=== PATIENT | female | born 1940 | race Caucasian/White ===

== ENCOUNTER 2019-11-02 13:58 | Inpatient (IN) | payer MEDICARE, OTHER ==
[~2019-11-02] VITALS: Ht 157.5 cm; Wt 121.1 kg
[~2019-11-02 13:58] MED LIST: ASPIRIN325 MG PO; BENAZEPRIL-HCT1 EAC3 PO; CITALOPRAM HBR20 MG PO; DILTIAZEM 24HR120 M1 PO; ELIQUIS5 MG PO; FENTANYL1 EAC4 TD; HYDROCODON-ACE1 EA11 PO; KEFLEX500 MG PO; LORTAB 7.5-5001 EACH PO; LOVENOX40 MG/0.4 SC; MELOXICAM7.5 MG PO; METOPROLOL TART25 MG PO; TESSALON PERLE100 MG PO; TRAZODONE HCL100 MG PO; ZITHROMAX500 MG PO
--- NOTE | 2019-11-02 14:09 | Emergency Department Note ---
History of Present Illnes History of Present Illness History of Present Illness This is a 79 year old female sent by manager finance Dr Vela for evaluation of elevated creatinine. Patient seen at bedside NAD . Arrival Mode: Car Onset (how long ago): second(s) Severity: mild Onset quality: sudden Timing of current episode: constant Progression: worsening Chronicity: new Relieving factors: none Exacerbating factors: none Associated symptoms: Reports weakness Treatments prior to arrival: none Past Medical/Family History Physician Review I have reviewed the patient's past medical and family history. Any updates have been documented here. Past Medical History Recent Fever: No Clinical Suspicion of Infectio: No New/Unexplained Change in Ment: No Past Medical History: Hypertension, A-Fib, DVT/PE Other Medical History: Lymphedema, Obesity, arthritis Past Surgical History: Cholecysctectomy, Hysterectomy Other Surgery: caracts left done 11/23/14 total hip gastric band ANKLE Social History Smoking Cessation: Never Smoker Alcohol Use: None Any Illegal Drug Use: No Other Last Tetanus: utd Review of Systems Review of Systems Constitutional: Reports weakness EENTM: Reports no symptoms Cardiovascular: Reports no symptoms Respiratory: Reports no symptoms Gastrointestinal: Reports no symptoms Genitourinary: Reports no symptoms Musculoskeletal: Reports no symptoms Integumentary: Reports no symptoms Neurological: Reports no symptoms Psychological: Reports no symptoms Endocrine: Reports no symptoms Hematological/Lymphatic: Reports no symptoms Physical Exam Related Data Allergies: Coded Allergies: No Known Allergies (Unverified , 09/03/12) Triage Vital Signs Vital Signs Date Time Temp Pulse Resp B/P (MAP) Pulse Ox O2 Delivery O2 Flow Rate FiO2 11/02/19 14:15 97.7 82 20 102/54 94 Vital signs reviewed: Yes Physical Exam CONSTITUTIONAL Constitutional: Present morbidly obese HENT HENT: Present normocephalic, Present atraumatic, Present oropharynx clear/moist, Present nose normal HENT L/R: Present left ext ear normal, Present right ext ear normal EYES Eyes: Reports PERRL, Reports conjunctivae normal NECK Neck: Present ROM normal PULMONARY Pulmonary: Present effort normal, Present breath sounds normal CARDIOVASCULAR Cardiovascular: Present regular rhythm, Present heart sounds normal, Present capillary refill normal, Present normal rate GASTROINTESTINAL Abdominal: Present soft, Present nontender, Present bowel sounds normal GENITOURINARY Genitourinary: Present exam deferred SKIN Skin: Present warm, Present dry MUSCULOSKELETAL Musculoskeletal: Present edema (3+ b/l) NEUROLOGICAL Neurological: Present oriented x 3 PSYCHOLOGICAL Psychological: Present mood/affect normal, Present judgement normal Results Laboratory Lab results reviewed: Yes Laboratory comments Laboratory Tests Test 11/02/19 14:33 11/02/19 14:28 Urine Color Straw (YELLOW) Urine Clarity Sl cloudy (CLEAR) Urine pH 5 (5 - 7) Urine Specific [place] 1.020 (1.010-1.025) Urine Protein Negative (NEGATIVE) Urine Glucose (UA) Negative (NEGATIVE) Urine Ketones Negative (NEGATIVE) Urine Blood Negative (NEGATIVE) Urine Nitrite Negative (NEGATIVE) Urine Bilirubin Negative (NEGATIVE) Urine Urobilinogen 0.2 mg/dL (0.2 - 1) Urine Leukocyte Esterase Negative (NEGATIVE) Urine RBC None /HPF (0-5) Urine WBC 6-10 /HPF (0-5) Urine Epithelial Cells Many /LPF (NONE) Urine Bacteria Moderate /HPF (NONE) Urine Random Total Protein 14.6 mg/dL (1-14) Urine Random Sodium 45 mmol/L Urine Creatinine 104.18 mg/dL (47-110) White Blood Count 5.40 x10e3/uL (4.8-10.8) Red Blood Count 3.13 x10e6/uL (3.6-5.1) Hemoglobin 8.3 g/dL (12.0-16.0) Hematocrit 27.4 % (34.2-44.1) Mean Corpuscular Volume 87.5 fL (81-99) Mean Corpuscular Hemoglobin 26.5 pg (28-32) Mean Corpuscular Hemoglobin Concent 30.3 g/dL (31-35) Red Cell Distribution Width 18.3 % (11.7-14.4) Platelet Count 164 x10e3/uL (140-360) Neutrophils (%) (Auto) 61.1 % (38.7-80.0) Lymphocytes (%) (Auto) 21.3 % (18.0-39.1) Monocytes (%) (Auto) 11.9 % (4.4-11.3) Eosinophils (%) (Auto) 4.4 % (0.0-6.0) Basophils (%) (Auto) 0.9 % (0.0-1.0) Neutrophils # (Auto) 3.3 (2.1-6.9) Lymphocytes # (Auto) 1.2 (1.0-3.2) Monocytes # (Auto) 0.6 (0.2-0.8) Eosinophils # (Auto) 0.2 (0.0-0.4) Basophils # (Auto) 0.1 (0.0-0.1) Absolute Immature Granulocyte (auto 0.02 x10e3/uL (0-0.1) Sodium Level 141 mmol/L (136-145) Potassium Level 4.6 mmol/L (3.5-5.1) Chloride Level 110 mmol/L (98-107) Carbon Dioxide Level 20 mmol/L (22-29) Anion Gap 15.6 mmol/L (8-16) Blood Urea Nitrogen 60 mg/dL (7-26) Creatinine 2.88 mg/dL (0.57-1.11) Estimat Glomerular Filtration Rate 16 ML/MIN (60-) BUN/Creatinine Ratio 21 (6-25) Glucose Level 88 mg/dL (74-118) Calcium Level 9.2 mg/dL (8.4-10.2) Total Bilirubin 1.1 mg/dL (0.2-1.2) Aspartate Amino Transf (AST/SGOT) 17 IU/L (5-34) Alanine Aminotransferase (ALT/SGPT) 15 IU/L (0-55) Alkaline Phosphatase 90 IU/L (40-150) Creatine Kinase 67 IU/L (29-168) Creatine Kinase MB 3.10 ng/mL (0-5.0) Troponin I 0.058 ng/mL (0-0.300) B-Type Natriuretic Peptide 801.6 pg/mL (0-100) Total Protein 6.2 g/dL (6.5-8.1) Albumin 3.3 g/dL (3.5-5.0) Globulin 2.9 g/dL (2.3-3.5) Albumin/Globulin Ratio 1.1 (0.8-2.0) Procedures 12 Lead ECG Interpretation ECG Interpretation : ECG: ECG 1 Crusher Operator: Interpreted by ED physician Date: Nov 02, 2019 Time: 14:33 Prior ECG tracings: reviewed Rhythm: atrial fibrillation Ectopy: infrequent PVC's Rate: normal BPM: 77 ST segments normal: Yes T waves normal: Yes Q waves: V3, V4, V5, V6 Clinical Impression: abnormal ECG Assessment & Plan Medical Decision Making MDM 79 yof presents to the ED for non-specific weakness . Diff Dx : renal failure, hyperkalemia, ACS, infection, arrythmia. Assessment & Plan Final Impression: (1) Renal failure (ARF), acute on chronic (2) Elevated brain natriuretic peptide (BNP) level (3) Weakness (4) Atrial fibrillation Home Meds Active Scripts Apixaban (Eliquis) 5 Mg Tablet, 5 MG PO BID for 30 Days Prov:ALANA ABARCA MD 05/08/19 Azithromycin (ZITHROMAX) 500 Mg Tablet, 250 MG PO DAILY, #5 Prov:ALANA ABARCA MD 05/08/19 Cephalexin Monohydrate (KEFLEX) 500 Mg Capsule, 500 MG PO Q12H for 5 Days Prov:ALANA ABARCA MD 05/08/19 Diltiazem Hcl (DILTIAZEM 24HR CD) 120 Mg Cap.er.24h, 120 MG PO DAILY for 30 Days Prov:ALANA ABARCA MD 05/08/19 Benzonatate (TESSALON PERLE) 100 Mg Capsule, 100 MG PO Q6HR PRN for COUGH for 10 Days Prov:ALANA ABARCA MD 05/08/19 Reported Medications Metoprolol Tartrate (METOPROLOL TARTRATE) 25 Mg Tablet, 25 MG PO BID, TAB 11/25/14 Aspirin (ASPIRIN) 325 Mg Tablet, 325 MG PO DAILY, TAB 11/25/14 Meloxicam (MELOXICAM) 7.5 Mg Tablet, 7.5 MG PO DAILY, #30 TAB 11/23/14 Hydrocodone Bit/Acetaminophen (HYDROCODON-ACETAMINOPHEN 5-325) 1 Each Tablet, MG PO PRN 09/03/12 Benazepril/Hydrochlorothiazide (BENAZEPRIL-HCTZ 20-25 MG TAB) 1 Each Tablet, MG PO DAILY 09/03/12 Medications in the ED Sodium Chloride 1,000 ml @ 0 mls/hr Q0M STAT IV ; Start 11/02/19 at 14:07; Stop 11/02/19 at 14:08; Status KEVIN JEAN DO Nov 02, 2019 14:09
[2019-11-02 14:39] LABS: BASOPHILS # (AUTO) 0.1 (0.0-0.1); BASOPHILS % 0.9 % (0.0-1.0); EOSINOPHILS # (AUTO) 0.2 (0.0-0.4); EOSINOPHILS % 4.4 % (0.0-6.0); HEMATOCRIT 27.4 % (34.2-44.1); HEMOGLOBIN 8.3 g/dL (12.0-16.0); LYMPHOCYTES # (AUTO) 1.2 (1.0-3.2); LYMPHOCYTES % 21.3 % (18.0-39.1); MEAN CORPUSCULAR HEMOGLOBIN 26.5 pg (28-32); MEAN CORPUSCULAR HGB CONC 30.3 g/dL (31-35); MEAN CORPUSCULAR VOLUME 87.5 fL (81-99); MONOCYTES # (AUTO) 0.6 (0.2-0.8); MONOCYTES % 11.9 % (4.4-11.3); NEUTROPHILS # (AUTO) 3.3 (2.1-6.9); NEUTROPHILS % 61.1 % (38.7-80.0); PLATELET COUNT 164 x10e3/uL (140-360); RED BLOOD COUNT 3.13 x10e6/uL (3.6-5.1); RED CELL DISTRIBUTION WIDTH 18.3 % (11.7-14.4)
[2019-11-02 14:57] LABS: ALBUMIN 3.3 g/dL (3.5-5.0); ALBUMIN/GLOBULIN RATIO 1.1 (0.8-2.0); ANION GAP 15.6 mmol/L (8-16); CALCIUM 9.2 mg/dL (8.4-10.2); CREATININE, SERUM 2.88 mg/dL (0.57-1.11); POTASSIUM 4.6 mmol/L (3.5-5.1)
[2019-11-02 15:04] LABS: CREATINE KINASE MB 3.1 ng/mL (0-5.0)
[2019-11-02 16:26] LABS: BILIRUBIN,URINE NEGATIVE (NEGATIVE); CLARITY,URINE SL CLOUDY (CLEAR); COLOR,URINE STRAW (YELLOW); KETONES,URINE NEGATIVE (NEGATIVE); LEUKOCYTE ESTERASE ,URINE NEGATIVE (NEGATIVE); NITRITE,URINE NEGATIVE (NEGATIVE); PROTEIN,URINE DIPSTICK NEGATIVE (NEGATIVE); URINE UROBILINOGEN 0.2 mg/dL (0.2 - 1)
[2019-11-02 16:40] LABS: BACTERIA,URINE MODERATE /HPF; EPITHELIAL CELLS,URINE MANY /LPF
[2019-11-02] MEDS ORDERED: SODIUM CHLORIDE 0.9% 1000ML 1,000 ML IV SCH (16:45)
[2019-11-02 17:03] LABS: TOTAL PROTEIN, URINE 14.6 mg/dL (1-14)
[2019-11-02] MEDS ORDERED: SODIUM CHLORIDE FLUSH 10 ML SYR INJ PRN (17:30)
[2019-11-02 20:15] VITALS: BP 110/70
[2019-11-02 21:00] VITALS: BP 110/70
--- NOTE | 2019-11-02 21:30 | NUR ---
Patient received via stretcher from ER. AAO x 3. Patient had no complaints of pain. Respirations even and non-labored. Admission history obtained. Initial physical assessment performed. Safety measures implemented. IVF infusing at 75 cc/hr. Patient instructed to call for assistance when needed. Call light within reach.
[2019-11-02] MEDS ORDERED: ULTRAM50 MG PO (22:31)
--- NOTE | 2019-11-02 23:01 | Consultation ---
DATE OF CONSULTATION: Renal Consultation HISTORY OF PRESENT ILLNESS: Thank you for the consultation. Ms. Miramontes is a pleasant 79-year-old female patient, well known to me from her outpatient setting. She typically has chronic kidney disease with baseline serum creatinine around 1.3 mg/dL. She had free clinic labs done in the outpatient setting. Creatinine rise to 2.63 from her baseline around 1.3 mg/dL when she was supposed to be following up in our clinic this week. The patient also had a potassium of 6. I proceeded to get in touch with the patient yesterday. The patient informed me that she has been feeling very weak and fatigued and tired. Blood work also showed a potassium elevated at 6. I asked the patient to take Kayexalate, stop her benazepril, and she was also getting Mobic before, asked her to stop that as well. I asked her to present to the emergency room. She presented today to the ER at [facility] in [place]. Creatinine is still elevated in fact even higher at 2.9. I did ask her yesterday to stop her benazepril and Mobic. The patient's potassium is better and she did take her Kayexalate yesterday. Potassium is better at 4.6. Currently, no fever, no chills, no nausea, no vomiting, no diarrhea, no abdominal pain. Renal consultation has been asked for the management of her acute kidney injury on chronic kidney. PAST MEDICAL HISTORY: Chronic kidney disease stage 3, history of hypertension, history of arthritis, and history of atrial fibrillation also. MEDICATIONS: That she takes; metoprolol, meloxicam, diltiazem, benazepril, hydrochlorothiazide, aspirin, and Eliquis. ALLERGIES: NO KNOWN DRUG ALLERGIES. SOCIAL HISTORY: No tobacco. No alcohol use. FAMILY HISTORY: Noncontributory. REVIEW OF SYSTEMS: See HPI. Otherwise, all systems negative. PHYSICAL EXAMINATION: VITAL SIGNS: Blood pressure 102/54, 82 pulse. The patient is afebrile. HEENT: No cervical lymphadenopathy. NECK: Supple without masses. No JVD. Moist appearing oral mucosa. SKIN: Moist with good turgor. CHEST WALL: Good expansion. No chest wall tenderness. LUNGS: Clear to auscultation bilaterally. CARDIOVASCULAR: S1 and S2. No obvious gallop, rub, or murmur. ABDOMEN: Soft. Positive bowel sounds. Nontender. No organomegaly. EXTREMITIES: Evidence of 2 to 3+ edema, which is secondary to her chronic lymphedema. No clubbing. No cyanosis. NEUROLOGIC: Awake, alert, and oriented x3. Grossly nonfocal exam. Has some decreased motor strength bilaterally. LABORATORY WORKUP: Urinalysis was negative. Chemistry; sodium 141, potassium 4.6, chloride 110, bicarb 20, BUN 60, creatinine is 2.9, calcium 9.2, and glucose is 88. Hematology; H and H are 8.3 and 27.4. IMPRESSION AND PLAN: 1. Acute kidney injury on chronic kidney disease. Stage 3. Suspect there is a component of acute prerenal azotemia. The patient may or may not have been with active infection and dehydrated with her volume depleted. I will stop her benazepril and hydrochlorothiazide. I have also asked her to stop her Mobic. I would not give any further Mobic and would also not start the benazepril or HCTZ back again until her creatinine is back to her baseline. Her potassium is normal now. I will place her on gentle IV fluids of normal saline at 75 mL/h and repeat labs again in the morning including basic metabolic panel, mag, phos, and CBC. We will get urine electrolytes and make further recommendation. Recommend to avoid all potential nephrotoxic agents. Hold any ANTON inhibitors or ARBs, nonsteroidal anti-inflammatory drugs, IV dye as well as any diuretics. 2. Hypertension. Blood pressure is on the low side of normal. Would gently hydrate the patient and discontinue and hold all blood pressure medicines for now. 3. Hyperkalemia, has resolved now. We will continue to monitor off benazepril and Mobic as outlined above. Thank you once again for consultation. We will follow the patient closely along with you and make further recommendations. Omid Vela MD TH/MODL /[id number] cc: Thony Dunn MD
[2019-11-02] MEDS ORDERED: ONDANSETRON HCL INJ 2MG/ML 2ML 2 MG/ML VIAL IV PRN (23:45)
[2019-11-02] MEDS ORDERED: ACETAMINOPHEN 325 MG TAB PO PRN (23:45)
[2019-11-02] MEDS ORDERED: DOCUSATE SODIUM 100 MG CAP PO PRN (23:45)
[2019-11-02] MEDS ORDERED: ZOLPIDEM TARTRATE 10 MG TAB PO PRN (23:45)
[2019-11-03] VITALS (8 sets, daily range): BP systolic 87–122; BP diastolic 36–72
[2019-11-03] MEDS: SODIUM CHLORIDE 0.9% 1000ML 1,000 ML IV STA ×2 (00:52→14:21)
--- NOTE | 2019-11-03 05:47 | NUR ---
H&P PCP cc: sob/cough HPI: 78yoF, developed worsening renal function, sent to hospital by . PMH: PAF, HTN, DVT, OA, chronic lymphedema legs, PNA, PAF, PreDM PSHx: left hip, cholecystectomy, carpal tunel, ankle, gastric bypass Allergies; see emr FH/SH; single; no cigs med;s see MAR ROS no f/c/s/n/V/D/NUNEZ/dizziness/cp/vision changes/skin rash/confusion v/s; revd PE tired appearing anicteric ns1s2 course breath sounds; crackles right; cough with deep inspiration soft nt nd no e/t skin dry flat affect a&ox3; labs/meds revd A/P: LISSETH - IVF; hold nephrotoxic agents CKD3 due to HTN- f/u labs; UTI- start ceftriaxone; culture; PreDM- check hab1c/lipids Severe obesity- check hab1c/lipids; 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
[2019-11-03 05:58] LABS: BASOPHILS # (AUTO) 0.1 (0.0-0.1); BASOPHILS % 1.1 % (0.0-1.0); EOSINOPHILS # (AUTO) 0.2 (0.0-0.4); EOSINOPHILS % 5.4 % (0.0-6.0); HEMATOCRIT 26.8 % (34.2-44.1); LYMPHOCYTES # (AUTO) 1.2 (1.0-3.2); LYMPHOCYTES % 26.8 % (18.0-39.1); MEAN CORPUSCULAR HEMOGLOBIN 25.9 pg (28-32); MEAN CORPUSCULAR HGB CONC 29.9 g/dL (31-35); MEAN CORPUSCULAR VOLUME 86.7 fL (81-99); MONOCYTES # (AUTO) 0.8 (0.2-0.8); MONOCYTES % 18.5 % (4.4-11.3); NEUTROPHILS # (AUTO) 2.1 (2.1-6.9); PLATELET COUNT 147 x10e3/uL (140-360); RED BLOOD COUNT 3.09 x10e6/uL (3.6-5.1); RED CELL DISTRIBUTION WIDTH 18.5 % (11.7-14.4)
[2019-11-03] MEDS: TRAMADOL HCL 50 MG TAB PO SCH ×3 (06:00→21:00)
[2019-11-03] MEDS ORDERED: CEFTRIAXONE SOD 1 GM/NS 50 ML 50 ML IV SCH (06:00)
[2019-11-03 06:01] LABS: ALBUMIN/GLOBULIN RATIO 1.1 (0.8-2.0); ANION GAP 13.5 mmol/L (8-16); CALCIUM 8.8 mg/dL (8.4-10.2); CREATININE, SERUM 2.81 mg/dL (0.57-1.11); POTASSIUM 4.5 mmol/L (3.5-5.1)
--- NOTE | 2019-11-03 06:10 | NUR ---
Dr. Keys (covering for Dr. Vela) was notified of "Routine Consult".
--- NOTE | 2019-11-03 07:00 | NUR ---
Walking rounds done. Patient resting comfortably. BSSR given to oncoming nurse regarding patient's status.
[2019-11-03 07:11] LABS: MAGNESIUM 1.9 MG/DL (1.3-2.1); PHOSPHORUS 5.2 MG/DL (2.3-4.7)
[2019-11-03] MEDS: METOPROLOL TARTRATE 25 MG TAB PO SCH ×2 (09:00→17:00)
[2019-11-03] MEDS: APIXABAN 5 MG TABLET PO SCH ×2 (09:56→17:28)
[2019-11-03 10:34] LABS: ELLIPTOCYTE, RBC SLIGHT; HYPOCHROMASIA SLIGHT; OVALOCYTES FEW
[2019-11-03 10:35] LABS: ANISOCYTOSIS MODERATE; BURR CELLS SLIGHT; PLATELET ESTIMATE ADEQUATE; PLATELET MORPHOLOGY COMMENT NORMAL; RBC MORPHOLOGY COMMENT ABNORMAL; SCHISTOCYTES RARE
[2019-11-03 10:36] LABS: TARGET CELLS FEW
[2019-11-03] MEDS: CEFTRIAXONE SOD 1 GM/NS 50 ML 50 ML IV SCH (11:10)
--- NOTE | 2019-11-03 11:53 | Progress Note ---
DATE: 11/03/2019 Nephrology Progress Note SUBJECTIVE: The patient denies any shortness of breath or nausea. She was referred to the hospital yesterday after her creatinine was noted to have risen to 2.63 from her baseline of 1.3. Also had a potassium of 6. Benazepril and Mobic have been stopped. She was started on IV fluids normal saline at 75 mL/h. OBJECTIVE: GENERAL: Looks comfortable. VITAL SIGNS: Blood pressure 100/55. NECK: Supple without JVP. CHEST: Clear to auscultation, no crepitations or wheezes. CARDIOVASCULAR: No rub or gallop. ABDOMEN: Soft, obese, but nondistended. EXTREMITIES: Both lower legs have chronic lymphedema, which is nonpitting. LABORATORY DATA: Hemoglobin 8, normal white count and platelets. Potassium 4.5, bicarb 21, sodium 143, BUN 60, creatinine 2.81, from 2.88 yesterday. ASSESSMENT: 1. Acute kidney injury, possibly related to use of Mobic. May be improving with hydration. 2. Chronic kidney disease, stage 3-4. 3. Blood pressure on the lower side, on small dose of metoprolol. Benazepril and hydrochlorothiazide held. 4. Hyperkalemia, resolved. PLAN: Continue current supportive treatment and trend renal function daily, looking for improvement. Her hemoglobin is 8.3, and appears stable related to her chronic kidney disease. MD MARGO Banda/NICK /[id number]
[2019-11-04] VITALS (7 sets, daily range): BP systolic 84–107; BP diastolic 51–75
[2019-11-04] MEDS: APIXABAN 5 MG TABLET PO SCH ×2 (08:59→16:41)
[2019-11-04] MEDS: METOPROLOL TARTRATE 25 MG TAB PO SCH ×2 (08:59→16:42)
[2019-11-04] MEDS: CEFTRIAXONE SOD 1 GM/NS 50 ML 50 ML IV SCH (08:59)
--- NOTE | 2019-11-04 15:34 | Progress Note ---
DATE: 11/04/2019 Nephrology Followup Note SUBJECTIVE: The patient is sleeping comfortably. OBJECTIVE: VITAL SIGNS: Blood pressure 84/51. Room air saturation 97%. Afebrile. Pulse 59 per minute. NECK: Without jugular venous distention. The rest of the exam is unchanged since yesterday. LABORATORY DATA: None available from today. IMPRESSION: 1. Acute kidney injury, possibly related to nonsteroidal anti-inflammatory drugs use. The patient has been hydrated since admission. 2. Chronic kidney disease, stage 3-4. 3. Blood pressure has been on the lower side, on small dose of metoprolol. Benazepril and hydrochlorothiazide on hold. 4. Hyperkalemia, resolved yesterday. PLAN: 1. Continue current supportive treatment. 2. Repeat BMP tomorrow to assess progress in renal function improvement. MD MARGO Banda/NICK /[id number]
--- NOTE | 2019-11-04 16:50 | NUR ---
IM- progress note O/N see below ROS no f/c/s/n/V/D/NUNEZ/dizziness/cp/vision changes/skin rash/confusion v/s; revd PE tired appearing anicteric ns1s2 course breath sounds; crackles right; cough with deep inspiration soft nt nd no e/t skin dry flat affect a&ox3; labs/meds revd A/P: LISSETH - IVF; hold nephrotoxic agents CKD3 due to HTN- f/u labs; UTI- start ceftriaxone; culture; PreDM- check hab1c/lipids Severe obesity- check hab1c/lipids; care mgr consult BMI 48.8- as above PAF- HR controlled; Apixaban HTN- cont home meds Prop: pepcid on AC Dispo: f/u 7-2 cont care; f/u renal fn. cont abx. Glenn Dunn MD, PhD.
[2019-11-04] MEDS: TRAMADOL HCL 50 MG TAB PO SCH (21:31)
[2019-11-05] VITALS (8 sets, daily range): BP systolic 93–130; BP diastolic 56–82
[2019-11-05] MEDS: APIXABAN 5 MG TABLET PO SCH ×2 (09:42→17:29)
[2019-11-05] MEDS: CEFTRIAXONE SOD 1 GM/NS 50 ML 50 ML IV SCH (09:42)
[2019-11-05] MEDS: METOPROLOL TARTRATE 25 MG TAB PO SCH ×2 (09:43→17:29)
--- NOTE | 2019-11-05 12:07 | NUR ---
IM- progress note O/N see below ROS no f/c/s/n/V/D/NUNZE/dizziness/cp/vision changes/skin rash/confusion v/s; revd PE tired appearing anicteric ns1s2 course breath sounds; crackles right; cough with deep inspiration soft nt nd no e/t skin dry flat affect a&ox3; labs/meds revd A/P: LISSETH - IVF; hold nephrotoxic agents CKD3 due to HTN- f/u labs; UTI- start ceftriaxone; culture; PreDM- check hab1c/lipids Severe obesity- check hab1c/lipids; milieu counselor consult BMI 48.8- as above PAF- HR controlled; Apixaban HTN- cont home meds Prop: pepcid on AC Dispo: f/u 7-2 cont care; f/u renal fn. cont abx. 7-3 check renal fn Glenn Dunn MD, PhD.
[2019-11-05 14:16] LABS: ANION GAP 10.6 mmol/L (8-16); CALCIUM 8.4 mg/dL (8.4-10.2); CREATININE, SERUM 2.28 mg/dL (0.57-1.11); POTASSIUM 4.6 mmol/L (3.5-5.1)
[2019-11-05] MEDS: TRAMADOL HCL 50 MG TAB PO SCH (20:38)
[2019-11-06] VITALS: BP 114/47
[2019-11-06 04:00] VITALS: BP 106/46
--- NOTE | 2019-11-06 07:25 | NUR ---
pt resting in bed. pt aware to call for assistance with getting oob
[2019-11-06 07:55] VITALS: BP 95/71
[2019-11-06 08:15] VITALS: BP 95/71
[2019-11-06] MEDS: METOPROLOL TARTRATE 25 MG TAB PO SCH ×2 (08:32→17:58)
[2019-11-06] MEDS: APIXABAN 5 MG TABLET PO SCH ×2 (08:53→17:58)
[2019-11-06] MEDS: CEFTRIAXONE SOD 1 GM/NS 50 ML 50 ML IV SCH (08:54)
[2019-11-06 11:22] VITALS: BP 103/64
--- NOTE | 2019-11-06 11:49 | NUR ---
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 cont abx. 7-3 check renal fn 7-4 check renal fn; d/c planning; d/c home stable f/u pcp 3 days and nephrology 1 week d/c>35mins Glenn Dunn MD, PhD.
--- NOTE | 2019-11-06 12:40 | NUR ---
physical therapy at bedside
[2019-11-06 12:47] LABS: ANION GAP 10.2 mmol/L (8-16); CALCIUM 8.5 mg/dL (8.4-10.2); CREATININE, SERUM 2.05 mg/dL (0.57-1.11); POTASSIUM 4.2 mmol/L (3.5-5.1)
--- NOTE | 2019-11-06 14:40 | NUR ---
dr cramer called to inform dr aviva mcgarry pt and to ask if ok to dc from renal and give lab results
--- NOTE | 2019-11-06 15:22 | NUR ---
dr cramer states ok to dc pt. creatine results given
--- NOTE | 2019-11-06 16:09 | NUR ---
pt found with iv to right ac out. blood over pt arm. pt states she wanted to get oob and did not use call aguilar
--- NOTE | 2019-11-06 16:25 | NUR ---
charge nurse melisa martin started iv to right fa
--- NOTE | 2019-11-06 17:59 | NUR ---
pt states family member is having car trouble, still waiting on ride.
--- NOTE | 2019-11-06 18:19 | Progress Note ---
DATE: 11/06/2019 Nephrology Followup Note SUBJECTIVE: Followed up for acute kidney injury on CKD 3 to 4. The patient is asymptomatic today. OBJECTIVE: VITAL SIGNS: Blood pressure 103/64, pulse 87 per minute, respirations 16 per minute. She is afebrile. Oxygen saturation 94% on room air. NECK: Supple without jugular venous distention. CHEST: Clear to auscultation bilaterally. No wheezing or crepitation heard. CARDIOVASCULAR: Shows regular rate and rhythm. No rub or gallop. ABDOMEN: Obese, but nondistended. EXTREMITIES: Have bilateral chronic thigh lymphedema. NEUROLOGICAL: Alert and oriented x3. LABORATORY DATA: Serum creatinine is 2.05, down from 2.81 on admission. Electrolytes stable. BUN is 22. IMPRESSION: 1. Acute kidney injury, possibly related to NSAID use, resolved. 2. Chronic kidney disease, stage 4. 3. Hypertension, controlled on small dose of metoprolol. 4. Anemia secondary to chronic kidney disease. Hemoglobin is stable. The patient may be discharged home today from renal standpoint. She will be followed up in the office within the next month with BMP results. She should be advised to stay away from NSAIDs. Santiago Keys MD [facility]/[place] /[id number]
== END 2019-11-06 18:34 | disposition home or self-care (01) | DRG 683 ==
LOC: ER 15:09 → ERHOLD 17:19 → MED/SURG2 21:49 → OBSVTOIN 11-04 13:50
PROVIDERS: ADMIT Internal Medicine; ATTEND Internal Medicine
DX: N17.9 Acute kidney failure, unspecified (principal); Z68.42 Body mass index [BMI] 45.0-49.9, adult; N39.0 Urinary tract infection, site not specified; E11.22 Type 2 diabetes mellitus with diabetic chronic kidney disease; I12.9 Hypertensive chronic kidney disease with stage 1 through stage 4 chronic kidney disease, or unspecified chronic kidney disease; Z79.4 Long term (current) use of insulin; I48.0 Paroxysmal atrial fibrillation; Z79.01 Long term (current) use of anticoagulants; E66.01 Morbid (severe) obesity due to excess calories; Z11.59 Encounter for screening for other viral diseases; Z86.718 Personal history of other venous thrombosis and embolism; M19.90 Unspecified osteoarthritis, unspecified site; Z98.84 Bariatric surgery status; Z90.49 Acquired absence of other specified parts of digestive tract; E87.5 Hyperkalemia; N18.4 Chronic kidney disease, stage 4 (severe); Z79.1 Long term (current) use of non-steroidal anti-inflammatories (NSAID)
CPT/HCPCS: 36415; 80048; 80053; 80061; 81001; 82550; 82553; 82570; 83036; 83735; 83880; 84100; 84156; 84300; 84484; 85025; 87086; 87635; 93005; 97139; 99284; G0378; J0696; J7030

== ENCOUNTER 2020-01-12 15:58 | Inpatient (IN) | payer MEDICARE, OTHER ==
[~2020-01-12] VITALS: Ht 162.6 cm; Wt 112.0 kg
[~2020-01-12 15:58] MED LIST changes: +ULTRAM50 MG PO
--- NOTE | 2020-01-12 16:16 | Emergency Department Note ---
History of Present Illnes History of Present Illness Chief Complaint: Respiratory History of Present Illness This is a 79 year old female Chief Complaint Comment pt came in via [facility] from residence with c/o shortness of breath that started a few days ago, pt has not verbalized any complaints but wanting to be checked up, pt was placed on O2 @ 3L via nasal cannula and O2 sat now is at 98%. Historian: [facility] [employer] [facility] Arrival Mode: HFD Manuscript Reader Required: No Onset (how long ago): day(s) (3) Location: None Quality: None Radiation: Reports non-radiation Severity: unable to specify Onset quality: unable to specify Duration (how long): day(s) (3) Progression: unchanged Chronicity: new Context: Denies recent illness, Denies recent surgery Relieving factors: none Exacerbating factors: none Associated symptoms: Reports denies other symptoms Treatments prior to arrival: none (KELSIE NG MD) Past Medical/Family History Physician Review I have reviewed the patient's past medical and family history. Any updates have been documented here. (KELSIE NG MD) Past Medical History Recent Fever: No Clinical Suspicion of Infectio: No New/Unexplained Change in Ment: No Past Medical History: Hypertension, CHF Other Medical History: Lymphedema, Obesity, arthritis Past Surgical History: Cholecysctectomy, Hysterectomy Other Surgery: cataracts left done 11/23/14 total hip replacement (left) gastric band (KELSIE NG MD) Other Last Tetanus: utd (KELSIE NG MD) Review of Systems Review of Systems Constitutional: Reports no symptoms EENTM: Reports no symptoms Cardiovascular: Reports no symptoms Respiratory: Reports no symptoms Gastrointestinal: Reports no symptoms Genitourinary: Reports no symptoms Musculoskeletal: Reports no symptoms Integumentary: Reports no symptoms Neurological: Reports no symptoms Psychological: Reports no symptoms Endocrine: Reports no symptoms Hematological/Lymphatic: Reports no symptoms (KELSIE NG MD) Physical Exam Related Data Allergies: Coded Allergies: No Known Allergies (Unverified , 09/03/12) Triage Vital Signs Vital Signs Date Time Temp Pulse Resp B/P (MAP) Pulse Ox O2 Delivery O2 Flow Rate FiO2 01/12/20 16:02 110 18 120/81 98 Nasal Cannula 2.0 Vital signs reviewed: Yes (KELSIE NG MD) Physical Exam CONSTITUTIONAL Constitutional: Present well-developed, Present morbidly obese HENT HENT: Present normocephalic, Present atraumatic, Present oropharynx sophia ar/moist, Present nose normal HENT L/R: Present left ext ear normal, Present right ext ear normal EYES Eyes: Reports PERRL, Reports conjunctivae normal NECK Neck: Present ROM normal PULMONARY Pulmonary: Present effort normal, Present breath sounds normal CARDIOVASCULAR Cardiovascular: Present irregular rhythm, Present intact distal pulses, Present capillary refill normal, Present tachycardia GASTROINTESTINAL Abdominal: Present soft, Present nontender, Present bowel sounds normal GENITOURINARY Genitourinary: Present exam deferred SKIN Skin: Present warm, Present dry MUSCULOSKELETAL Musculoskeletal: Present ROM normal NEUROLOGICAL Neurological: Present alert, Present oriented x 3, Present no gross motor or sensory deficits PSYCHOLOGICAL Psychological: Present mood/affect normal, Present judgement normal (KELSIE NG MD) Results Laboratory Laboratory Laboratory Tests Test 01/12/20 18:10 01/12/20 17:46 01/12/20 17:00 Urine Color Yellow (YELLOW) Urine Clarity Sl cloudy (CLEAR) Urine pH 5 (5 - 7) Urine Specific [place] 1.025 (1.010-1.025) Urine Protein Trace (NEGATIVE) Urine Glucose (UA) Negative (NEGATIVE) Urine Ketones Negative (NEGATIVE) Urine Blood Negative (NEGATIVE) Urine Nitrite Negative (NEGATIVE) Urine Bilirubin Small (NEGATIVE) Urine Urobilinogen 0.2 mg/dL (0.2 - 1) Urine Leukocyte Esterase Negative (NEGATIVE) Urine RBC 0-5 /HPF (0-5) Urine WBC 0-5 /HPF (0-5) Urine Epithelial Cells Rare /LPF (NONE) Urine Bacteria Rare /HPF (NONE) Urine Hyaline Casts 2-5 (0-1) Urine Fine Granular Casts 1-5 (0) White Blood Count 4.50 x10e3/uL (4.8-10.8) Red Blood Count 3.43 x10e6/uL (3.6-5.1) Hemoglobin 8.3 g/dL (12.0-16.0) Hematocrit 28.7 % (34.2-44.1) Mean Corpuscular Volume 83.7 fL (81-99) Mean Corpuscular Hemoglobin 24.2 pg (28-32) Mean Corpuscular Hemoglobin Concent 28.9 g/dL (31-35) Red Cell Distribution Width 18.6 % (11.7-14.4) Platelet Count 154 x10e3/uL (140-360) Neutrophils (%) (Auto) 46.8 % (38.7-80.0) Lymphocytes (%) (Auto) 28.9 % (18.0-39.1) Monocytes (%) (Auto) 18.4 % (4.4-11.3) Eosinophils (%) (Auto) 3.6 % (0.0-6.0) Basophils (%) (Auto) 1.6 % (0.0-1.0) Neutrophils # (Auto) 2.1 (2.1-6.9) Lymphocytes # (Auto) 1.3 (1.0-3.2) Monocytes # (Auto) 0.8 (0.2-0.8) Eosinophils # (Auto) 0.2 (0.0-0.4) Basophils # (Auto) 0.1 (0.0-0.1) Absolute Immature Granulocyte (auto 0.03 x10e3/uL (0-0.1) Sodium Level 143 mmol/L (136-145) Potassium Level 4.3 mmol/L (3.5-5.1) Chloride Level 111 mmol/L (98-107) Carbon Dioxide Level 18 mmol/L (22-29) Anion Gap 18.3 mmol/L (8-16) Blood Urea Nitrogen 15 mg/dL (7-26) Creatinine 1.16 mg/dL (0.57-1.11) Estimat Glomerular Filtration Rate 45 ML/MIN (60-) BUN/Creatinine Ratio 13 (6-25) Glucose Level 79 mg/dL (74-118) Calcium Level 8.5 mg/dL (8.4-10.2) Total Bilirubin 0.8 mg/dL (0.2-1.2) Aspartate Amino Transf (AST/SGOT) 15 IU/L (5-34) Alanine Aminotransferase (ALT/SGPT) < 6 IU/L (0-55) Alkaline Phosphatase 112 IU/L (40-150) Troponin I 0.063 ng/mL (0-0.300) B-Type Natriuretic Peptide 368.4 pg/mL (0-100) Total Protein 5.6 g/dL (6.5-8.1) Albumin 3.2 g/dL (3.5-5.0) Globulin 2.4 g/dL (2.3-3.5) Albumin/Globulin Ratio 1.3 (0.8-2.0) Coronavirus (PCR) Not detected (NOTDETECTED) Lab results reviewed: Yes (JES RUBIO MD) Imaging Imaging results reviewed: Yes Impressions Procedure: [id number] DX/CHEST SINGLE (PORTABLE) Exam Date: 01/12/20 Exam Time: 1705 REPORT STATUS: Signed EXAMINATION: CHEST SINGLE (PORTABLE) INDICATION: Shortness of breath COMPARISON: CT of the chest on 05/06/2019. FINDINGS: TUBES and LINES: None. LUNGS: Normal lung volumes. There is multifocal interstitial and airspace opacities, most pronounced in the right lung base. PLEURA: There is probable trace bilateral pleural effusion. No evidence of pneumothorax. HEART AND MEDIASTINUM: The cardiomediastinal silhouette is mildly enlarged. BONES AND SOFT TISSUES: No acute osseous lesion. Soft tissues are unremarkable. UPPER ABDOMEN: No free air under the diaphragm. IMPRESSION: 1. Mild cardiomegaly with prominent interstitial lung markings which likely represent pulmonary edema. 2. Multifocal airspace opacities may represent superimposed atelectasis and/or developing pneumonia in the proper clinical context. Signed by: Agusto Cardoza MD on 01/12/2020 5:28 PM Dictated By: AGUSTO CARDOZA MD 27 Transcribed By: SARAH on 01/12/201727 COPY TO: KELSIE NG MD~ (JES RUBIO MD) Procedures 12 Lead ECG Interpretation ECG Interpretation : ECG: ECG 1 Manuscript Reader: Interpreted by ED physician Date: Jan 12, 2020 Rhythm: atrial fibrillation Rate: tachycardia BPM: 120 QRS axis: normal ST segments normal: Yes T waves normal: Yes Clinical Impression: abnormal ECG (KELSIE NG MD) Assessment & Plan Medical Decision Making MDM 79 y.o F w/ SoB at [facility] but asymptomatic now. Diff includes PNA vs CHF vs ACS among others. Labs pending. A-fib w/ RVR 5mg lopressor ordered. Handed off to Dr. Rubio @ 1800 (KELSIE NG MD) Reassessment Reassessment time: 17:45 Reassessment Well appearing, NAD (KELSIE NG MD) Reassessment time: 19:36 Reassessment PT WITH RALES TO BILATERAL LOWER LOBES WITH AUSCULTATION Date Time Temp Pulse Resp B/P (MAP) Pulse Ox O2 Delivery O2 Flow Rate FiO2 01/12/20 19:03 101 16 112/79 95 Room Air 01/12/20 17:14 97.9 01/12/20 16:02 2[address] ABARCA, ADMIT PATIENT (JES RUBIO MD) Assessment & Plan Final Impression: (1) Dyspnea (KELSIE NG MD) Final Impression: (1) Dyspnea (2) CHF (congestive heart failure) (3) Pulmonary edema (4) Chronic a-fib (JES RUBIO MD) Depart Disposition: ADMITTED Last Vital Signs Date Time Temp Pulse Resp B/P (MAP) Pulse Ox O2 Delivery O2 Flow Rate FiO2 01/12/20 16:02 110 18 120/81 98 Nasal Cannula 2.0 (KELSIE NG MD) Home Meds Active Scripts Apixaban (Eliquis) 5 Mg Tablet, 5 MG PO BID for 30 Days Prov:ALANA ABARCA MD 05/08/19 Reported Medications Tramadol Hcl (ULTRAM) 50 Mg Tablet, 50 MG PO Q6H, TAB 11/02/19 Metoprolol Tartrate (METOPROLOL TARTRATE) 25 Mg Tablet, 25 MG PO BID, TAB 11/25/14 Aspirin (ASPIRIN) 325 Mg Tablet, 325 MG PO DAILY, TAB 15 Hydrocodone Bit/Acetaminophen (HYDROCODON-ACETAMINOPHEN 5-325) 1 Each Tablet, MG PO PRN 09/03/12 KELSIE NG MD Jan 12, 2020 16:16 JES RUBIO MD Jan 12, 2020 19:39
--- OUTSIDE RECORDS SUMMARY | 2020-01-12 16:21 | XMS REPORT | Continuity of Care Document ---
Author Author [facility] t Organization [facility] Address [address] [place] [address] Dr. Zacarias [address] [place] [address] Phone Unavailable Care Team Providers Care Front End Mechanic Name Role Phone AMY BENZ DO PCP KEVIN CHAPPELL Attphys Unavailable Akhil Benz Attphys Payers Payer Name Policy Type Policy Number Effective Date Expiration Date Evon Rogers [facility] [id number] 2018 00:00:00 [facility] Problems Condition Name Condition Details Condition Category Status Onset Date Resolution Date Last Treatment Date Treating Clinician Comments Source Atrial fibrillation Atrial fibrillation Problem Active 2014-11-23 00:00 :00 [facility] V76.12 - SCREEN MAMMOGRA V76. 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 Social History Social Habit Start Date Stop Date Quantity Comments Source Social History 2018-04-16 05:59:00 2018-04-16 05:59:00 Demetrius Huber Medications Ordered Medication Name Filled Medication Name Start Date Stop Da te Current Medication? Ordering Clinician Indication Dosage Frequency Signature (SIG) Comments Components Source Apixaban (Eliquis) 5 Mg Tablet Apixaban (Eliquis) 5 Mg Table t 2019-05-08 00:00:00 Yes Thony Dunn Md [address] [facility] Azithromycin (Zithromax) 500 Mg Tablet Azithromycin (Zithrom ax) 500 Mg Tablet 2019-05-08 00:00:00 Yes Thony Dunn Md [address] [facility] Benzonatate (Tessalon Perle) 100 Mg Capsule Benzonatat e (Tessalon Perle) 100 Mg Capsule 2019-05-08 00:00:00 Yes Thony Dunn Md 100 Every 6 Hours as needed for [facility] Cephalexin Monohydrate (Keflex) 500 Mg Capsule Cephale gee Monohydrate (Keflex) 500 Mg Capsule 2019-05-08 00:00:00 Yes Thony Dunn Md 500 Every 12 Hours [facility] Diltiazem Hcl (Diltiazem 24HR Cd) 120 Mg Cap.er.24h Di ltiazem Hcl (Diltiazem 24HR Cd) 120 Mg Cap.er.24h 2019-05-08 00:00:00 Yes Thony Dunn Md 120 Daily [facility] Aspirin 325 Mg Tablet Aspirin 325 Mg Tablet Yes [address] [facility] Benazepril/Hydrochlorothiazide (Benazepril-Hctz 20-25 Mg Tab) 1 Each Tablet Benazepril/Hydrochlorothiazide (Benazepril-Hctz 20-25 Mg Tab) [address] [facility] Hydrocodone Bit/Acetaminophen (Hydrocodon-Acetaminophe n 5-325) 1 Each Tablet Hydrocodone Bit/Acetaminophen (Hydrocodon-Acetaminophen 5-325) 1 Each Tablet Yes As Needed [facility] Meloxicam 7.5 Mg Tablet Meloxicam 7.5 Mg Tablet Yes 7. [address] [facility] Metoprolol Tartrate 25 Mg Tablet Metoprolol Tartrate 25 Mg Tablet Yes [address] [facility] Hydrocodone Bit/Acetaminophen (Lortab 7.5-500 Tablet) 1 Each Tablet, 1 Tab Oral Hydrocodone Bit/Acetaminophen (Lortab 7.5-500 Tablet) 1 Each Tablet, 1 Tab Oral 2019-05-08 00:00:00 No 1 Every 3-[address] [facility] Citalopram Hydrobromide (Citalopram Hbr) 20 Mg Tablet, 20 Mg Oral Citalopram Hydrobromide (Citalopram Hbr) 20 Mg Tablet, 20 Mg Oral 2014-11-03 2 00:00:00 No 20 Daily [facility] Enoxaparin Sodium (Lovenox) 40 Mg/0.4 Ml Inj, 40 Mg Vogt bcutaneously Enoxaparin Sodium (Lovenox) 40 Mg/0.4 Ml Inj, 40 Mg Subcutaneously 2014 00:00:[address] [facility] Fentanyl 1 Each Patch.td72, 12 Mcg Transderm Fentanyl 1 Each Patch.td72, 12 Mcg Transderm 2014-11-23 00:00:00 No 12 Every Other Da y [facility] Trazodone Hcl 100 Mg Tablet, 100 Mg Oral Trazodone Hcl 100 Mg Tablet, 100 Mg Oral 2014-11-23 00:00:[address] [facility] Meloxicam 7.5 Mg Tablet, 7.5 Mg Oral Meloxicam 7.5 Mg Tablet, 7. 5 Mg Oral 2012-09-14 00:00:00 [address] [facility] Procedures Procedure Date / Time Performed Performing Clinician [facility] e Computed tomography of chest with contrast 2019-05-06 00:00:[address] [facility] Encounters Start Date/Time End Date/Time [facility] ID Source 2019-05-06 23:12:00 2019-05-08 14:12:00 Discharged Inpatient (obs) 1 KEVIN CHAPPELL [facility] [id number] [facility] 2018-04-15 13:13:00 2018-04-15 23:59:00 Outpatient Amy Benz [facility] [id number] 2016-10-29 13:50:00 2016-10-29 23:59:00 Outpatient SalemAmy sloan [facility] [id number] 2014-10-03 14:58:00 2014-10-03 23:59:00 Outpatient Amy Benz JAN [id number] Results Test Description Test Time Test Comments Results Result Comments Source Creatine Kinase MB 2019-05-08 00:50:00 Test Item Creatine Kinase MB (test code = 35642-7) 1.10 0-5.0 [facility] CenterTroponin [id number] 00:50:00* Test Item Value Reference Range Interpretation Comments Troponin I (test code = TWW2882) 0.044 0-0.300 [facility] CenterCreatine Cqdwyt5922-03-57 00:39:00* Test Item Value Reference Range Interpretation Comments Creatine Kinase (test code = 2157-6) 51 29-168 [facility] CenterBlood [id number] 00:12:00* Test Item Value Reference Range Interpretation Comments Blood Culture (test code = 16986720) NO GROWTH AFTER [address] [facility] CenterFree Thyroxine [id number] 23:57:00* Test Item Value Reference Range Interpretation Comments Free Thyroxine Index (test code = 20443-0) 2.2075 1.4-3.8 [facility] CenterThyroxine (T4)2019-05-07 23:57:00* Test Item Value Reference Range Interpretation Comments Thyroxine (T4) (test code = 3026-2) 6.86 4.5-10.9 Our current method for Total T4 is not recommended for use as the only marker fo r evaluating patients for thyroid disorders.[facility] CenterTriiodothyronine (T3) [id number] 23:57:00* Test Item Value Reference Range Interpretation Comments Triiodothyronine (T3) Uptake (test code = 3050-2) 32.18 22.5 -37.0 [facility] CenterThyroid Stimulating Hormone (TSH) 2019-05-07 23:57:00* Test Item Value Reference Range Interpretation Comments Thyroid Stimulating Hormone (TSH) (test code = 70239-8) 1.182 0.350-4.940 [facility] CenterHemoglobin A1c Qpguwwh6142-63-23 11:02:00 * Test Item Value Reference Range Interpretation Comments Hemoglobin A1c Percent (test code = Hemoglobin A1c Percent) 5.7 4.0-7.0 [facility] CenterTriglycerides Ykjkr9622-35-29 10:46:00* Test Item Value Reference Range Interpretation Comments Triglycerides Level (test code = 2571-8) 60 0-149 [facility] CenterCholesterol Ukrtp5181-91-87 10:46:00* Test Item Value Reference Range Interpretation Comments Cholesterol Level (test code = 2093-3) 106 0-199 Less than 200 mg/dL Low Twjo776 - 239 mg/dL Borderline Dtpp266 m g/dl and greater High Risk [facility] CenterLDL Uycrtduqjar9282-41-33 10:46:00* Test Item Value Reference Range Interpretation Comments LDL Cholesterol (test code = 2089-1) 61 60-130 [facility] CenterHDL Rlfiaezinpt5600-89-27 10:46:00* Test Item Value Reference Range Interpretation Comments HDL Cholesterol (test code = 2085-9) 33 40-[address] [facility] CenterCholesterol/HDL Aekva6333-43-63 10:46:00 * Test Item Value Reference Range Interpretation Comments Cholesterol/HDL Ratio (test code = 9830-1) 3.2 3.0-3.6 [facility] CenterCT CHEST [id number] 22:28:00 [facility] [address] [place] [address] Patient Name: GLO DENIS MR #: [id number] : 1940 Age/Sex: 78/F Req #: [id number] Adm Physician: Ordered by: KEVIN CHAPPELL DO Report #: [id number] Location: ER Room/Bed: Procedure: [id number] CT/C T CHEST W Exam Date: 05/06/19 Exam Time: 2131 REPORT STATUS: Signed EXAM: CT Chest W ITH contrast (PE protocol) 05/06/2019 8:22 PM INDICATION: Dyspnea dyspnea [id number] COMPARISON: None TECHNIQUE: Chest was scanned utiliz ing a multidetector helical scanner from the lung apex through the level of th e diaphragm after administration of IV contrast. Thin section reconstructions were obtained with special concentration on the pulmonary arteries. Coronal an d sagittal reformations were obtained. Pulmonary embolism protocol was perform ed. IV CONTRAST: 100 mL of Isovue 370 COMPLICATIONS: None RADIA TION DOSE: Total DLP: 601.89 mGy*cm Estimated effective dose: (DL P x 0.014 x size factor) mSv CTDIvol has been reviewed. It is below the l imits set by the Radiation Protocol Committee (RPC). Dose modulation, i terative reconstruction, and/or weight based adjustment of the mA/kV was utili zed to reduce the radiation dose to as low as reasonably achievable. FIN DINGS: LINES/ TUBES: None. LUNGS AND AIRWAYS: No pulmonary arterial f illing defects. Ground glass opacity adjacent to a right upper posterior later al pleural lipoma. Scarring/atelectasis adjacent to right anterior thoracic di sc osteophytes. Tracheobronchial calcifications, otherwise airways patent. Low right lung volume with right hemidiaphragm eventration. PLEURA: A 2 cm right upper posterolateral pleural lipoma. HEART AND MEDIASTINUM: The th yroid gland is normal. No mediastinal, hilar or axillary lymphadenopathy. Th e heart is mildly enlarged. There is no pericardial effusion. Calcifications of aorta and major branches including the coronary arteries. Aortic valve and mitral annular calcifications. The main pulmonary artery is mildly dilated duane sures 3.8 cm in diameter, the ascending aorta is nondilated, 3.2 cm in diamete r. UPPER ABDOMEN: Small sliding gastric hiatal hernia.. BONES: There a re degenerative changes in the spine and shoulders. SOFT TISSUES: Unremarka ble. IMPRESSION: 1. A 2 cm right upper posterior lateral pleural lip layne with adjacent lung groundglass opacification which may be atelectasis alth ough pneumonia is possible. 2. Mild cardiomegaly and calcific coronary ben ry disease. 3. Dilated main pulmonary artery can be seen with pulmonary hyper tension. 4. Aortic valve and mitral annular calcific disease. 5. Small sli ding gastric hiatal hernia. 6. No pulmonary embolus. Signed by: Chris James DO on 05/06/2019 10:49 PM Dictated By: DORA JAMES DO Elec tronically Signed By: DORA JAMES DO on 05/06/192248 Transcribed By: EDITH RAN on 05/06/192248 COPY TO: KEVIN CHAPPELL DO Sodium Level 2019-05-06 21:06:00* Test Item Value Reference Range Interpretation Comments Sodium Level (test code = 2951-2) 142 136-145 [facility] CenterPotassium Gfeji6170-86-90 21:06:00* Test Item Value Reference Range Interpretation Comments Potassium Level (test code = 2823-3) 4.0 3.5-5.1 [facility] CenterChloride Ptukw5046-39-42 21:06:00* Test Item Value Reference Range Interpretation Comments Chloride Level (test code = 2075-0) 107 98-107 [facility] CenterCarbon Dioxide Pzxro4027-99-06 21:06:00* Test Item Value Reference Range Interpretation Comments Carbon Dioxide Level (test code = 2028-9) 22 22-29 [facility] CenterAnion [id number] 21:06:00* Test Item Value Reference Range Interpretation Comments Anion Gap (test code = 66687-7) 17.0 8-[address] [facility] CenterBlood Urea Cxlllxnb9608-45-52 21:06:00* Test Item Value Reference Range Interpretation Comments Blood Urea Nitrogen (test code = 3094-0) 14 7-26 [facility] CenterCreatinine2020-01-02 21:06:00* Test Item Value Reference Range Interpretation Comments Creatinine (test code = 2160-0) 0.79 0.57-1.11 [facility] CenterBUN/Creatinine Wplqg7500-22-80 21:06:00* Test Item Value Reference Range Interpretation Comments BUN/Creatinine Ratio (test code = 3097-3) 18 6-25 [facility] CenterEstimat Glomerular Filtration Rate 2019-05-06 21:06:00* Test Item Value Reference Range Interpretation Comments Estimat Glomerular Filtration Rate (test code = 301190001) > 60 >60 Ranges were taken from the National Kidney Disease Education Program and the [facility] Kidney Foundation literature.Reference ranges:60 or greater: Vmfaqw46-22 ( for 3 consecutive months): Chronic kidney disease 15 or less: Kidney failureSt. David's South [facility] Medical CenterGlucose Janwn9840-76-42 21:06:00* Test Item Value Reference Range Interpretation Comments Glucose Level (test code = JZX7609) 90 74-118 [facility] CenterCalcium Zyytg5006-43-32 21:06:00* Test Item Value Reference Range Interpretation Comments Calcium Level (test code = 29069-5) 9.4 8.4-10.2 [facility] CenterTotal Nznzqqyuu4993-63-84 21:06:00* Test Item Value Reference Range Interpretation Comments Total Bilirubin (test code = 1975-2) 0.8 0.2-1.2 [facility] CenterAspartate Amino Transf (AST/SGOT) 2019-05-06 21:06:00* Test Item Value Reference Range Interpretation Comments Aspartate Amino Transf (AST/SGOT) (test code = Aspartate Amino Transf (AST/SGOT)) 19 5-34 [facility] CenterAlanine Aminotransferase (ALT/SGPT) 2019-05-06 21:06:00* Test Item Value Reference Range Interpretation Comments Alanine Aminotransferase (ALT/SGPT) (test code = 1742-6) 9 0-55 [facility] CenterTotal Gdpmhkx6763-82-84 21:06:00* Test Item Value Reference Range Interpretation Comments Total Protein (test code = 2885-2) 6.7 6.5-8.1 [facility] CenterAlbumin2020-01-02 21:06:00* Test Item Value Reference Range Interpretation Comments Albumin (test code = 1751-7) 3.5 3.5-5.0 [facility] CenterGlobulin2020-01-02 21:06:00* Test Item Value Reference Range Interpretation Comments Globulin (test code = 34948-1) 3.2 2.3-3.5 [facility] CenterAlbumin/Globulin Bxivt5491-42-86 21:06:00 * Test Item Value Reference Range Interpretation Comments Albumin/Globulin Ratio (test code = 1759-0) 1.1 0.8-2.0 [facility] CenterAlkaline Rrdhimkidsj4066-08-29 21:06:00* Test Item Value Reference Range Interpretation Comments Alkaline Phosphatase (test code = 6768-6) 77 40-150 [facility] CenterB-Type Natriuretic Nwjdhsw8110-44-53 20:35:00* Test Item Value Reference Range Interpretation Comments B-Type Natriuretic Peptide (test code = 73391-6) 437.6 0-[address] [facility] CenterProthrombin Qxhn9342-45-10 20:09:00* Test Item Value Reference Range Interpretation Comments Prothrombin Time (test code = 5902-2) 15.0 11.9-14.[address] [facility] CenterProthromb Time International Ratio 2019-05-06 20:09:00* Test Item Value Reference Range Interpretation Comments Prothromb Time International Ratio (test code = 6301-6) 1.13 Oral Anticoagulant Therapy INR Values:1. Low Intensity Therapy 1.5 - 2.02 . Moderate Intensity Therapy 2.0 - 3.03. High Intensity Therapy(1) 2.5 - 3. 54. High Intensity Therapy(2) 3.0 - 4.05. Panic Value INR > 5.0 [facility] CenterActivated Partial Thromboplast Time 2019-05-06 20:09:00* Test Item Value Reference Range Interpretation Comments Activated Partial Thromboplast Time (test code = 12148-4) 31.7 23.8-35.5 [facility] CenterWhite Blood Grimf8455-63-07 19:47:00* Test Item Value Reference Range Interpretation Comments White Blood Count (test code = 6690-2) 6.73 4.8-10.8 [facility] CenterRed Blood Johpp2217-92-95 19:47:00* Test Item Value Reference Range Interpretation Comments Red Blood Count (test code = 789-8) 4.06 3.6-5.1 [facility] CenterHemoglobin2020-01-02 19:47:00* Test Item Value Reference Range Interpretation Comments Hemoglobin (test code = 65582-1) 11.0 12.0-16.[address] [facility] CenterHematocrit2020-01-02 19:47:00* Test Item Value Reference Range Interpretation Comments Hematocrit (test code = 4544-3) 35.0 34.2-44.1 [facility] CenterMean Corpuscular Vkjxoq1977-98-45 19:47:00* Test Item Value Reference Range Interpretation Comments Mean Corpuscular Volume (test code = 787-2) 86.2 81-99 [facility] CenterMean Corpuscular Iykewpfhhs9092-19-60 19:47:00* Test Item Value Reference Range Interpretation Comments Mean Corpuscular Hemoglobin (test code = 785-6) 27.1 28-[address] [facility] CenterMean Corpuscular Hemoglobin Concent 2019-05-06 19:47:00* Test Item Value Reference Range Interpretation Comments Mean Corpuscular Hemoglobin Concent (test code = 786-4) 31.4 31-35 [facility] CenterRed Cell Distribution Hgglq1687-46-44 19:47:00* Test Item Value Reference Range Interpretation Comments Red Cell Distribution Width (test code = 64289-7) 15.9 11.7 -14.[address] [facility] CenterPlatelet Pxxzo4999-44-38 19:47:00* Test Item Value Reference Range Interpretation Comments Platelet Count (test code = 777-3) 208 140-360 [facility] CenterNeutrophils (%) (Auto)2019-05-06 19:47:00 * Test Item Value Reference Range Interpretation Comments Neutrophils (%) (Auto) (test code = 30980-0) 64.1 38.7-80.0 [facility] CenterLymphocytes (%) (Auto)2019-05-06 19:47:00 * Test Item Value Reference Range Interpretation Comments Lymphocytes (%) (Auto) (test code = 736-9) 24.4 18.0-39.1 [facility] CenterMonocytes (%) (Auto)2019-05-06 19:47:00* Test Item Value Reference Range Interpretation Comments Monocytes (%) (Auto) (test code = 5905-5) 8.3 4.4-11.3 [facility] CenterEosinophils (%) (Auto)2019-05-06 19:47:00 * Test Item Value Reference Range Interpretation Comments Eosinophils (%) (Auto) (test code = 713-8) 2.2 0.0-6.0 [facility] CenterBasophils (%) (Auto)2019-05-06 19:47:00* Test Item Value Reference Range Interpretation Comments Basophils (%) (Auto) (test code = 706-2) 0.7 0.0-1.0 [facility] CenterIM GRANULOCYTES %2019-05-06 19:47:00* Test Item Value Reference Range Interpretation Comments IM GRANULOCYTES % (test code = IM GRANULOCYTES %) 0.3 0.0- 1.0 [facility] CenterNeutrophils # (Auto)2019-05-06 19:47:00* Test Item Value Reference Range Interpretation Comments Neutrophils # (Auto) (test code = 751-8) 4.3 2.1-6.9 [facility] CenterLymphocytes # (Auto)2019-05-06 19:47:00* Test Item Value Reference Range Interpretation Comments Lymphocytes # (Auto) (test code = 08733-8) 1.6 1.0-3.2 [facility] CenterMonocytes # (Auto)2019-05-06 19:47:00* Test Item Value Reference Range Interpretation Comments Monocytes # (Auto) (test code = 742-7) 0.6 0.2-0.8 [facility] CenterEosinophils # (Auto)2019-05-06 19:47:00* Test Item Value Reference Range Interpretation Comments Eosinophils # (Auto) (test code = 711-2) 0.2 0.0-0.4 [facility] CenterBasophils # (Auto)2019-05-06 19:47:00* Test Item Value Reference Range Interpretation Comments Basophils # (Auto) (test code = 704-7) 0.1 0.0-0.1 [facility] CenterAbsolute Immature Granulocyte (auto 2019-05-06 19:47:00* Test Item Value Reference Range Interpretation Comments Absolute Immature Granulocyte (auto (rm t code = Absolute Immature Granulocyte (auto) 0.02 0-0.1 [facility] CenterCHEST SINGLE (PORTABLE)2019-05-06 19:02:00 [facility] [address] [place] [address] Patient Name: GLO DENIS MR #: [id number] : 1940 Age/Sex: 78/F Req #: [id number] Adm Physician: Ordered by: [facility]IN [facility] Report #: [id number] Location: ER Room/Bed: Procedure: [id number] D X/CHEST SINGLE (PORTABLE) Exam Date: 05/06/19 Exam T jalil: 1835 REPORT STATUS: Signed EXAMINATION: CHEST SINGLE (PORTABLE) INDICATION: Atrial fibrillation. COMPARISON: None FINDINGS: TUBES and LINES: None. LUNGS: Mild dilatation of the right hemidiaphragm. Mild patchy density in the lung b ases may reflect subsegmental atelectasis. There is mild prominence of the [place]ol[place] tral pulmonary vasculature, consistent with pulmonary venous congestion. PL EURA: No pleural effusion or pneumothorax. HEART AND MEDIASTINUM: Cardiac size is moderately enlarged. BONES AND SOFT TISSUES: No acute osseous lesion. Soft tissues are unremarkable. UPPER ABDOMEN: No free air under the diaphragm. IMPRESSION: Mild prominence of the central pulmon briseyda vasculature, consistent with pulmonary venous congestion. Signed b y: Dr. Sherie Walters M.D. on 05/06/2019 7:03 PM Dictated By: POLINA WALTERS MD, MD 02 Transcribed By: SARAH on 05/06/191902 COPY TO: KEVIN GODINEZ NP
--- OUTSIDE RECORDS SUMMARY | 2020-01-12 16:21 | XMS REPORT | Continuity of Care Document ---
Author Author Demetrius Dasilva GLO [facility] Organization [facility] Address Unknown Phone Unavailable Care Team Providers Care Strategic Sourcing Manager Name Role Phone [employer] Information [employer] Unavailable Un available Problems Problem Status Onset Date Classification Date Reported Comments Source Encounter for screening mammogram for ma lignant neoplasm of breast 04/17/2018 11/03/2018 [facility] V76.12 - SCREEN MAMMOGRA Active 03/19/2013 [facility] Neoplasm of unspecified behavior of breast 11/03/2018 [facility] Medications No Data Provided for This Section Allergies, Adverse Reactions, Alerts No Known Medication Allergies Immunizations No Data Provided for This Section Results No Data Provided for This Section Pathology Reports No Data Provided for This Section Diagnostic Reports Report Value Date Source Breast Mammo Scrn LAITH incl CAD MA BILATERAL DIGITAL SCREENING MAMMOGRAM WITH CAD: 04/15/2018 CLINICAL: Z12.39 Encounter For Other Screening For Malignant Neoplasm Of Breast/Z12.39 Encounter For Other Screening For Malignant Neoplasm Of Breast. Current study was evaluated with a Computer Aided Detection (CAD) system. COMPARISON:Comparison is made to exams dated: 10/29/2016 mammogram, 10/03/2014 mammogram, 04/30/2013 mammogram, 03/19/2012 mammogram, 11/22/2010 mammogram, and [facility]. TECHNIQUE: Mammographic views were obtained using digital acquisition. Current study was also evaluated with a Computer Aided Detection (CAD) system. FINDINGS: The tissue of both breasts is almost entirely fat. There are benign calcifications in the left breast. No significant masses, calcifications, or other findings are seen in either breast. There has been no significant interval change. IMPRESSION: BENIGN RECOMMENDATION:There is no mammographic evidence of malignancy. A 1 year screening mammogram is recommended.(04/16/2019) This exam was interpreted at [id number] for ISAISA Aggarwal, SL 15. Professional services are provided by the [facility]. Tj Zapien M.D., cm/penrad:04/16/2018 09:51:35 Lap Winder(s): NEDRA [facility] 1/2 Mammogram BI-RADS: 2 Benign 04/15/2018 ISAIAS Aggarwal Bone Density [employer] MA - Bone Density [employer] MA BONE DENSITY EVALUATION: 10/29/2016 CLINICAL DATA: Post menopausal and clinical risk for osteoporosis. RISK FACTORS: race. FINDINGS: Bone density evaluation was performed 10/29/2016 on the AP L1-L3 region of spine using a Hologic unit. The BMD average for the exam is 1.219 g/cm2. The T-score is 1.80 and the Z-score is 4.20. This matches the World Health Organization's criteria for normal bone density and places the patient within normal limits of fracture risk. An additional bone density evaluation was performed 10/29/2016 on the right femur neck using a Hologic unit. The BMD average for the exam is 0.647 g/cm2. The T-score is -1.80 and the Z-score is 0.30. This matches the World Health Organization's criteria for osteopenia and places the patient at a medium risk for fracture. An additional bone density evaluation was performed 10/29/2016 on the right hip using a Hologic unit. The BMD average for the exam is 0.754 g/cm2. The T-score is -1.50 and the Z-score is 0.20. This matches the World Health Organization's criteria for osteopenia and places the patient at a medium risk for fracture. IMPRESSION: OSTEOPENIA Patient is at medium risk for fracture. Professional services are provided by the [facility]. This exam was dictated and interpreted by [id number] for ISAIAS Aggarwal. Tj Zapien M.D., cm/penrad:10/30/2016 08:43:33 Lap Winder: Sun BARRIOS(R)(Tom), [facility] 10/29/2016 ISAIAS Aggarwal Breast Mammo Scrn LAITH incl CAD MA - BREAST MAMMO SCRN [facility] INCL CAD MA BILATERAL DIGITAL SCREENING MAMMOGRAM WITH CAD: 10/29/2016 CLINICAL: Routine/Screening. Current study was evaluated with a Computer Aided Detection (CAD) system. Comparison is made to exams dated: 10/03/2014 mammogram, 04/30/2013 mammogram, 03/19/2012 mammogram, 11/22/2010 mammogram, 10/10/2009 mammogram - [facility] and 04/30/2007 mammogram - [facility]. The tissue of both breasts is almost entirely fat. There are bilateral benign-appearing calcifications. No significant masses, calcifications, or other findings are seen in either breast. There has been no significant interval change. IMPRESSION: BENIGN There is no mammographic evidence of malignancy. A 1 year screening mammogram is recommended. Professional services are provided by the [facility]. Malik Prieto M.D., jp/penrad:10/30/2016 08:00:14 Lap Winder: Nannette BARRIOS(Dickson)(Tom), [facility] This exam was dictated and interpreted by [address] [place], [place] [id number] [id number]. letter sent: Normal exam Mammogram BI-RADS: 2 Benign 10/29/2016 [facility] Digital Mammo Screening [facility] MA - DIGITAL MAMMO SCREENING [facility] MA BILATERAL DIGITAL SCREENING MAMMOGRAM WITH CAD: 10/03/2014 CLINICAL: Routine. Current study was evaluated with a Computer Aided Detection (CAD) system. Comparison is made to exams dated: 11/22/2010 mammogram, 03/19/2012 mammogram and 04/30/2013 mammogram - [facility]. The tissue of both breasts is almost entirely fat. There is a benign calcification in the left breast. No significant masses, calcifications, or other findings are seen in either breast. There has been no significant interval change. IMPRESSION: BENIGN There is no mammographic evidence of malignancy. A 1 year screening mammogram is recommended. Ankur flores/penrad:10/04/2014 10:38:36 Lap Winder: Nannette SNEED)(Tom), [facility] This exam was dictated and interpreted by [id number] for Jasen. letter sent: Normal exam Mammogram BI-RADS: 2 Benign 10/03/2014 [facility] Digital Mammo Screening [facility] MA - DIGITAL MAMMO SCREENING [facility] MA BILATERAL DIGITAL SCREENING MAMMOGRAM WITH CAD: 04/30/2013 CLINICAL: Routine. Current study was evaluated with a Computer Aided Detection (CAD) system. Comparison is made to exam dated: 10/10/2009 mammogram - [facility]. The tissue of both breasts is almost entirely fatty. No significant masses, calcifications, or other findings are seen in either breast. There has been no significant interval change. IMPRESSION: NEGATIVE There is no mammographic evidence of malignancy. A screening mammogram in one year is recommended. Dr. Cristobal Brown M.D. eoc/penrad:05/03/2013 08:34:28 Lap Winder: Clara BARRIOS(R)(M), [facility] This exam was dictated and interpreted by [id number] for ISAIAS Quesada. letter sent: Normal exam Mammogram BI-RADS: 1 Negative 04/30/2013 YOBANY Aggarwal Consultation Notes No Data Provided for This Section Discharge Summaries No Data Provided for This Section History and Physicals No Data Provided for This Section Vital Signs No Data Provided for This Section Encounters Location Location Details Encounter Type Encounter Number Reason For Visit Attending Provider ADM Date DC Date Status Source OD [id number] V76.12 - SCREEN MAMMOGRA AMY TUYET 04/30/2013 04/30/2013 Active [facility] [id number] 06 Amy Tuyet 10/03/2014 10/04/2014 [facility] [id number] 07 Amy Tuyet 10/29/2016 10/30/2016 [facility] [id number] 08 Amy Tuyet 04/15/2018 04/16/2018 [facility] Procedures No Data Provided for This Section Assessment and Plan No Data Provided for This Section Plan of Care No Data Provided for This Section Social History Social History Date Source No data available for this section 04/16/2018 [facility] Family History No Data Provided for This Section Advance Directives No Data Provided for This Section Functional Status No Data Provided for This Section
[2020-01-12] MEDS ORDERED: METOPROLOL TARTRATE INJ 1 MG/ML VIAL IV ONE (17:15)
--- NOTE | 2020-01-12 17:31 | Diagnostic Imaging Report ---
EXAMINATION: CHEST SINGLE (PORTABLE) INDICATION: Shortness of breath COMPARISON: CT of the chest on 05/06/2019. FINDINGS: TUBES and LINES: None. LUNGS: Normal lung volumes. There is multifocal interstitial and airspace opacities, most pronounced in the right lung base. PLEURA: There is probable trace bilateral pleural effusion. No evidence of pneumothorax. HEART AND MEDIASTINUM: The cardiomediastinal silhouette is mildly enlarged. BONES AND SOFT TISSUES: No acute osseous lesion. Soft tissues are unremarkable. UPPER ABDOMEN: No free air under the diaphragm. IMPRESSION: 1. Mild cardiomegaly with prominent interstitial lung markings which likely represent pulmonary edema. 2. Multifocal airspace opacities may represent superimposed atelectasis and/or developing pneumonia in the proper clinical context. Signed by: Gabby Martinez MD on 01/12/2020 5:28 PM
[2020-01-12 18:07] LABS: BASOPHILS # (AUTO) 0.1 (0.0-0.1); BASOPHILS % 1.6 % (0.0-1.0); EOSINOPHILS # (AUTO) 0.2 (0.0-0.4); EOSINOPHILS % 3.6 % (0.0-6.0); HEMATOCRIT 28.7 % (34.2-44.1); HEMOGLOBIN 8.3 g/dL (12.0-16.0); LYMPHOCYTES # (AUTO) 1.3 (1.0-3.2); LYMPHOCYTES % 28.9 % (18.0-39.1); MEAN CORPUSCULAR HEMOGLOBIN 24.2 pg (28-32); MEAN CORPUSCULAR HGB CONC 28.9 g/dL (31-35); MEAN CORPUSCULAR VOLUME 83.7 fL (81-99); MONOCYTES # (AUTO) 0.8 (0.2-0.8); MONOCYTES % 18.4 % (4.4-11.3); NEUTROPHILS # (AUTO) 2.1 (2.1-6.9); NEUTROPHILS % 46.8 % (38.7-80.0); PLATELET COUNT 154 x10e3/uL (140-360); RED BLOOD COUNT 3.43 x10e6/uL (3.6-5.1); RED CELL DISTRIBUTION WIDTH 18.6 % (11.7-14.4)
[2020-01-12 18:24] LABS: ALANINE AMINOTRANSFERASE < 6 IU/L (0-55); ALBUMIN 3.2 g/dL (3.5-5.0); ALBUMIN/GLOBULIN RATIO 1.3 (0.8-2.0); ALKALINE PHOSPHATASE 112 IU/L (40-150); ANION GAP 18.3 mmol/L (8-16); BLOOD UREA NITROGEN 15 mg/dL (7-26); BUN/CREATININE RATIO 13 (6-25); CALCIUM 8.5 mg/dL (8.4-10.2); CARBON DIOXIDE 18 mmol/L (22-29); CHLORIDE 111 mmol/L (98-107); CREATININE, SERUM 1.16 mg/dL (0.57-1.11); EST GLOMERULAR FILTRATION RATE 45 ML/MIN (60-); GLUCOSE 79 mg/dL (74-118); POTASSIUM 4.3 mmol/L (3.5-5.1); SODIUM 143 mmol/L (136-145)
[2020-01-12 18:34] LABS: BILIRUBIN,URINE SMALL (NEGATIVE); CLARITY,URINE SL CLOUDY (CLEAR); COLOR,URINE YELLOW (YELLOW); KETONES,URINE NEGATIVE (NEGATIVE); LEUKOCYTE ESTERASE ,URINE NEGATIVE (NEGATIVE); NITRITE,URINE NEGATIVE (NEGATIVE); PROTEIN,URINE DIPSTICK TRACE (NEGATIVE); URINE UROBILINOGEN 0.2 mg/dL (0.2 - 1)
[2020-01-12 18:45] LABS: BACTERIA,URINE RARE /HPF; RBC,URINE 0-5 /HPF (0-5); WBC,URINE (MAN) 0-5 /HPF (0-5)
[2020-01-12 18:46] LABS: EPITHELIAL CELLS,URINE RARE /LPF
--- NOTE | 2020-01-12 18:59 | NUR ---
SPOKE WITH PTS' DAUGHTER [phone]; TO UPDATE HER ON P.O.C.
[2020-01-12] MEDS ORDERED: SODIUM CHLORIDE FLUSH 10 ML SYR INJ PRN (19:45)
--- OUTSIDE RECORDS SUMMARY | 2020-01-12 19:50 | XMS REPORT | Continuity of Care Document ---
Author Author [facility] t Organization [facility] Address [address] [place] [address] [address] [place] [address] Phone Unavailable Care Team Providers Care Management Recruiter Name Role Phone AMY BENZ DO PCP Norah Lewis Attphys Unavailable KEVIN CHAPPELL Attphys Unavailable Akhil Benz Attphys Payers Payer Name Policy Type Policy Number Effective Date Expiration Date Evon Rogers [facility] [id number] 2018 00:00:00 [facility] Problems Condition Name Condition Details Condition Category Status Onset Date Resolution Date Last Treatment Date Treating Clinician Comments Source Atrial fibrillation Atrial fibrillation Problem Active 2014-11-23 00:00 :00 [facility] V76.12 - SCREEN MAMMOGRA V76. 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 11/03/2018 ISAIAS OPIAleena [place] Problem 2018-11-03 11:42:27 Demetrius Huber Encounter for screening mammogram for malignant neopla sm of breast Encounter for screening mammogram for malignant neoplasm of breast 04/17/2018 11/03/2018 [facility] [place] Problem 2018-04-17 05: 37:13 2018-11-03 11:42:27 2018-11-03 11:42:27 Demetrius johns Allergies, Adverse Reactions, Alerts This patient has [...] Thony Dunn Md 5 Twice A Day [facility] Azithromycin (Zithromax) 500 Mg Tablet Azithromycin (Zithrom ax) 500 Mg Tablet 2019-05-08 00:00:00 Yes Thony Dunn Md 250 Daily [facility] Benzonatate (Tessalon Perle) 100 Mg Capsule Benzonatat e (Tessalon Perle) 100 Mg Capsule 2019-05-08 00:00:00 Yes Thony Dunn Md 100 Every 6 Hours as needed for Cough [facility] Cephalexin Monohydrate (Keflex) 500 Mg Capsule Cephale gee Monohydrate (Keflex) 500 Mg Capsule 2019-05-08 00:00:00 Yes Thony Dunn Md 500 Every 12 Hours [facility] Diltiazem Hcl (Diltiazem 24HR Cd) 120 Mg Cap.er.24h Di ltiazem Hcl (Diltiazem 24HR Cd) 120 Mg Cap.er.24h 2019-05-08 00:00:00 Yes Thony Dunn Md 120 Daily [facility] Aspirin 325 Mg Tablet Aspirin 325 Mg Tablet Yes 325 Daily [facility] Benazepril/Hydrochlorothiazide (Benazepril-Hctz 20-25 Mg Tab) 1 Each Tablet Benazepril/Hydrochlorothiazide (Benazepril-Hctz 20-25 Mg Tab) 1 Each Tablet Yes Daily [facility] Hydrocodone Bit/Acetaminophen (Hydrocodon-Acetaminophe n 5-325) 1 Each Tablet Hydrocodone Bit/Acetaminophen (Hydrocodon-Acetaminophen 5-325) 1 Each Tablet Yes As Needed [facility] Meloxicam 7.5 Mg Tablet Meloxicam 7.5 Mg Tablet Yes 7. 5 Daily [facility] Metoprolol Tartrate 25 Mg Tablet Metoprolol Tartrate 25 Mg Tablet Yes 25 Twice A Day [facility] Hydrocodone Bit/Acetaminophen (Lortab 7.5-500 Tablet) 1 Each Tablet, 1 Tab Oral Hydrocodone Bit/Acetaminophen (Lortab 7.5-500 Tablet) 1 Each Tablet, 1 Tab Oral 2019-05-08 00:00:00 No 1 Every 3-4 Hours as needed [facility] Citalopram Hydrobromide (Citalopram Hbr) 20 Mg Tablet, 20 Mg Oral Citalopram Hydrobromide (Citalopram Hbr) 20 Mg Tablet, 20 Mg Oral 2014-11-03 2 00:00:00 No 20 Daily [facility] Enoxaparin Sodium (Lovenox) 40 Mg/0.4 Ml Inj, 40 Mg Vogt bcutaneously Enoxaparin Sodium (Lovenox) 40 Mg/0.4 Ml Inj, 40 Mg Subcutaneously 2014 00:00:00 No 40 Daily [facility] Fentanyl 1 Each Patch.td72, 12 Mcg Transderm Fentanyl 1 Each Patch.td72, 12 Mcg Transderm 2014-11-23 00:00:00 No 12 Every Other Da y [facility] Trazodone Hcl 100 Mg Tablet, 100 Mg Oral Trazodone Hcl 100 Mg Tablet, 100 Mg Oral 2014-11-23 00:00:00 No 100 As Needed [facility] Meloxicam 7.5 Mg Tablet, 7.5 Mg Oral Meloxicam 7.5 Mg Tablet, 7. 5 Mg Oral 2012-09-14 00:00:00 No 7.5 Twice A Day [facility] Procedures Procedure Date / Time Performed Performing Clinician [facility] Computed tomography of chest with contrast 2019-05-06 00:00:00 KEVIN HAGEN [facility] Encounters Start Date/Time End Date/Time Encounter Type Admission Type Attendi [facility] Emergency Department Facility Care Department Encounter ID Source 2019-05-06 23:12:00 2019-05-08 14:12:00 Discharged Inpatient (obs) [address] [facility] [id number] [facility] 2018-04-15 13:13:00 2018-04-15 23:59:00 [id number] 2016-10-29 13:50:00 2016-10-29 23:59:00 [facility] [id number] 2014-10-03 14:58:00 2014-10-03 23:59:00 Outpatient Amy Benz JAN [id number] Results Test Description Test Time Test Comments Results Result Comments Source CHEST SINGLE (PORTABLE) 2020-01-12 17:25:00 [place] [address] Patient Name: GLO DENIS MR #: [id number] : 1940 Age/Sex: 79/F Req #: [id number] Adm Physician: Ordered by: Kelsie Lewis MD Report #: [id number] Location: ER Room/Bed: Procedure: [id number] DX/CHEST SINGLE (PORTABLE) Exam Date: 01/12/20 Exam Time: 1705 REPORT STATUS: Signed EXAMINATION: CHEST SINGLE (PORTABLE) INDICATION: Shortness of breath COMPARISON: CT of the chest on 05/06/2019. FINDINGS: TUBES and LINES: None. LUNGS: Normal lung volumes. There is multifocal interstitial and airspace opacities, most pronounced in the right lung base. PLEURA: There is probable trace bilateral pleural effusion. No evidence of pneumothorax. HEART AND MEDIASTINUM: The cardiomediastinal silhouette is mildly enlarged. BONES AND SOFT TISSUES: No acute osseous lesion. Soft tissues are unremarkable. UPPER ABDOMEN: No free air under the diaphragm. IMPRESSION: 1. Mild cardiomegaly with prominent interstitial lung markings which likely represent pulmonary edema. 2. Multifocal airspace opacities may represent superimposed atelectasis and/or developing pneumonia in the proper clinical context. Signed by: Agusto Cardoza MD on 01/12/2020 5:28 PM Dictated By: AGUSTO CARDOZA MD 27 Transcribed By: SARAH on 01/12/201727 COPY TO: KELSIE LEWIS MD Creatine Kinase MB 2019-05-08 00:50:00 Test Item Creatine Kinase MB (test code = 65486-0) 1.10 0-5.0 [facility]Troponin [id number] 00:50:00* Test Item Value Reference Range Interpretation Comments Troponin I (test code = PGR2319) 0.044 0-0.300 [facility] CenterCreatine Zpufmy6742-87-23 00:39:00* Test Item Value Reference Range Interpretation Comments Creatine Kinase (test code = 2157-6) 51 29-168 [facility] CenterBlood Bijgipb8614-48-33 00:12:00* Test Item Value Reference Range Interpretation Comments Blood Culture (test code = 05612724) NO GROWTH AFTER 24 HOURS [facility] CenterFree Thyroxine Fxaqj7174-39-92 23:57:00* Test Item Value Reference Range Interpretation Comments Free Thyroxine Index (test code = 61008-5) 2.2075 1.4-3.8 [facility] CenterThyroxine (T4)2019-05-07 23:57:00* Test Item Value Reference Range Interpretation Comments Thyroxine (T4) (test code = 3026-2) 6.86 4.5-10.9 Our current method for Total T4 is not recommended for use as the only marker fo r evaluating patients for thyroid disorders.[facility] CenterTriiodothyronine (T3) Vyfpwn1437-09-60 23:57:00* Test Item Value Reference Range Interpretation Comments Triiodothyronine (T3) Uptake (test code = 3050-2) 32.18 22.5 -37.0 [facility] CenterThyroid Stimulating Hormone (TSH) 2019-05-07 23:57:00* Test Item Value Reference Range Interpretation Comments Thyroid Stimulating Hormone (TSH) (test code = 43610-2) 1.182 0.350-4.940 [facility] CenterHemoglobin A1c Ejvhyif9208-86-96 11:02:00 * Test Item Value Reference Range Interpretation Comments Hemoglobin A1c Percent (test code = Hemoglobin A1c Percent) 5.7 4.0-7.0 [facility] CenterTriglycerides Beyyb5127-68-13 10:46:00* Test Item Value Reference Range Interpretation Comments Triglycerides Level (test code = 2571-8) 60 0-149 [facility] CenterCholesterol Mlmfj1999-92-12 10:46:00* Test Item Value Reference Range Interpretation Comments Cholesterol Level (test code = 2093-3) 106 0-199 Less than 200 mg/dL Low Pfsa731 - 239 mg/dL Borderline Uwqg338 m g/dl and greater High Risk [facility] CenterLDL Akiddsvoocy5626-36-51 10:46:00* Test Item Value Reference Range Interpretation Comments LDL Cholesterol (test code = 2089-1) 61 60-130 [facility] CenterHDL Nfssryxhlus3149-26-57 10:46:00* Test Item Value Reference Range Interpretation Comments HDL Cholesterol (test code = 2085-9) 33 40-60 L [facility] CenterCholesterol/HDL Imcvv7266-96-44 10:46:00 * Test Item Value Reference Range Interpretation Comments Cholesterol/HDL Ratio (test code = 9830-1) 3.2 3.0-3.6 [facility] CenterCT CHEST U1327-69-25 22:28:00 [facility] [address] [place] [address] Patient Name: GLO DENIS MR #: [id number] : 1940 Age/Sex: 78/F Req #: [id number] Adm Physician: Ordered by: KEVIN CHAPPELL DO Report #: [id number] Location: ER Room/Bed: Procedure: [id number] CT/C T CHEST W Exam Date: 05/06/19 [...] 6. No pulmonary embolus. Signed by: Chris Robertson DO on 05/06/2019 10:49 PM Dictated By: ODRA ROBERTSON DO Elec tronically Signed By: DORA ROBERTSON DO on 05/06/192248 Transcribed By: EDITH RAN on 05/06/192248 COPY TO: KEVIN CHAPPELL DO Sodium Level 2019-05-06 21:06:00* Test Item Value Reference Range Interpretation Comments Sodium Level (test code = 2951-2) 142 136-145 [facility] CenterPotassium Wuhcv8974-61-09 21:06:00* Test Item Value Reference Range Interpretation Comments Potassium Level (test code = 2823-3) 4.0 3.5-5.1 [facility] CenterChloride Gzptx8862-36-50 21:06:00* Test Item Value Reference Range Interpretation Comments Chloride Level (test code = 2075-0) 107 98-107 [facility] CenterCarbon Dioxide Fslby0572-88-35 21:06:00* Test Item Value Reference Range Interpretation Comments Carbon Dioxide Level (test code = 2028-9) 22 22-29 [facility] CenterAnion Xvz1408-93-00 21:06:00* Test Item Value Reference Range Interpretation Comments Anion Gap (test code = 01304-4) 17.0 8-16 H [facility] CenterBlood Urea Evgjtdfp7749-70-05 21:06:00* Test Item Value Reference Range Interpretation Comments Blood Urea Nitrogen (test code = 3094-0) 14 7-26 [facility] CenterCreatinine2020-01-02 21:06:00* Test Item Value Reference Range Interpretation Comments Creatinine (test code = 2160-0) 0.79 0.57-1.11 [facility] CenterBUN/Creatinine Yqyuz0655-39-62 21:06:00* Test Item Value Reference Range Interpretation Comments BUN/Creatinine Ratio (test code = 3097-3) 18 6-25 [facility] CenterEstimat Glomerular Filtration Rate 2019-05-06 21:06:00* Test Item Value Reference Range Interpretation Comments Estimat Glomerular Filtration Rate (test code = 861495876) > 60 >60 Ranges were taken from the National Kidney Disease Education Program and the [facility] Kidney Foundation literature.Reference ranges:60 or greater: Paelmc03-55 ( for 3 consecutive months): Chronic kidney disease 15 or less: Kidney failureMemorial Hermann–Texas Medical CenterGlucose Nmjil0536-96-75 21:06:00* Test Item Value Reference Range Interpretation Comments Glucose Level (test code = HGL0907) 90 74-118 [facility] CenterCalcium Fhqia7032-57-63 21:06:00* Test Item Value Reference Range Interpretation Comments Calcium Level (test code = 97910-5) 9.4 8.4-10.2 [facility] CenterTotal Kstpdcsrc8892-27-90 21:06:00* Test Item Value Reference Range Interpretation Comments Total Bilirubin (test code = 1975-2) 0.8 0.2-1.2 [facility] CenterAspartate Amino Transf (AST/SGOT) 2019-05-06 21:06:00* Test Item Value Reference Range Interpretation Comments Aspartate Amino Transf (AST/SGOT) (test code = Aspartate Amino Transf (AST/SGOT)) 19 5-34 [facility] CenterAlanine Aminotransferase (ALT/SGPT) 2019-05-06 21:06:00* Test Item Value Reference Range Interpretation Comments Alanine Aminotransferase (ALT/SGPT) (test code = 1742-6) 9 0-55 [facility] CenterTotal Mcolwui2239-81-03 21:06:00* Test Item Value Reference Range Interpretation Comments Total Protein (test code = 2885-2) 6.7 6.5-8.1 [facility] CenterAlbumin2020-01-02 21:06:00* Test Item Value Reference Range Interpretation Comments Albumin (test code = 1751-7) 3.5 3.5-5.0 [facility] CenterGlobulin2020-01-02 21:06:00* Test Item Value Reference Range Interpretation Comments Globulin (test code = 96589-4) 3.2 2.3-3.5 [facility] CenterAlbumin/Globulin Tpyhm3382-33-63 21:06:00 * Test Item Value Reference Range Interpretation Comments Albumin/Globulin Ratio (test code = 1759-0) 1.1 0.8-2.0 [facility] CenterAlkaline Kmsszoxmcws3978-77-33 21:06:00* Test Item Value Reference Range Interpretation Comments Alkaline Phosphatase (test code = 6768-6) 77 40-150 [facility] CenterB-Type Natriuretic Nyubnur4769-81-47 20:35:00* Test Item Value Reference Range Interpretation Comments B-Type Natriuretic Peptide (test code = 67053-8) 437.6 0-100 H [facility] CenterProthrombin Vcrm4219-94-69 20:09:00* Test Item Value Reference Range Interpretation Comments Prothrombin Time (test code = 5902-2) 15.0 11.9-14.5 H [facility] CenterProthromb Time International Ratio 2019-05-06 20:09:00* Test Item Value Reference Range Interpretation Comments Prothromb Time International Ratio (test code = 6301-6) 1.13 Oral Anticoagulant Therapy INR Values:1. Low Intensity Therapy 1.5 - 2.02 . Moderate Intensity Therapy 2.0 - 3.03. High Intensity Therapy(1) 2.5 - 3. 54. High Intensity Therapy(2) 3.0 - 4.05. Panic Value INR > 5.0 [facility] CenterActivated Partial Thromboplast Time 2019-05-06 20:09:00* Test Item Value Reference Range Interpretation Comments Activated Partial Thromboplast Time (test code = 39240-8) 31.7 23.8-35.5 [facility] CenterWhite Blood Vcvuy2123-06-62 19:47:00* Test Item Value Reference Range Interpretation Comments White Blood Count (test code = 6690-2) 6.73 4.8-10.8 [facility] CenterRed Blood Zhnaa1813-05-68 19:47:00* Test Item Value Reference Range Interpretation Comments Red Blood Count (test code = 789-8) 4.06 3.6-5.1 [facility] CenterHemoglobin2020-01-02 19:47:00* Test Item Value Reference Range Interpretation Comments Hemoglobin (test code = 75280-0) 11.0 12.0-16.0 L [facility] CenterHematocrit2020-01-02 19:47:00* Test Item Value Reference Range Interpretation Comments Hematocrit (test code = 4544-3) 35.0 34.2-44.1 [facility] CenterMean Corpuscular Sxhmau4156-54-30 19:47:00* Test Item Value Reference Range Interpretation Comments Mean Corpuscular Volume (test code = 787-2) 86.2 81-99 [facility] CenterMean Corpuscular Dvjbhobfbu9112-32-05 19:47:00* Test Item Value Reference Range Interpretation Comments Mean Corpuscular Hemoglobin (test code = 785-6) 27.1 28-32 L [facility] CenterMean Corpuscular Hemoglobin Concent 2019-05-06 19:47:00* Test Item Value Reference Range Interpretation Comments Mean Corpuscular Hemoglobin Concent (test code = 786-4) 31.4 31-35 [facility] CenterRed Cell Distribution Dsrqf6520-37-12 19:47:00* Test Item Value Reference Range Interpretation Comments Red Cell Distribution Width (test code = 67843-8) 15.9 11.7 -14.4 H [facility] CenterPlatelet Tafzy6923-13-08 19:47:00* Test Item Value Reference Range Interpretation Comments Platelet Count (test code = 777-3) 208 140-360 [facility] CenterNeutrophils (%) (Auto)2019-05-06 19:47:00 * Test Item Value Reference Range Interpretation Comments Neutrophils (%) (Auto) (test code = 89963-8) 64.1 38.7-80.0 [facility] CenterLymphocytes (%) (Auto)2019-05-06 19:47:00 * Test Item Value Reference Range Interpretation Comments Lymphocytes (%) (Auto) (test code = 736-9) 24.4 18.0-39.1 [facility] CenterMonocytes (%) (Auto)2019-05-06 19:47:00* Test Item Value Reference Range Interpretation Comments Monocytes (%) (Auto) (test code = 5905-5) 8.3 4.4-11.3 [facility] CenterEosinophils (%) (Auto)2019-05-06 19:47:00 * Test Item Value Reference Range Interpretation Comments Eosinophils (%) (Auto) (test code = 713-8) 2.2 0.0-6.0 [facility] CenterBasophils (%) (Auto)2019-05-06 19:47:00* Test Item Value Reference Range Interpretation Comments Basophils (%) (Auto) (test code = 706-2) 0.7 0.0-1.0 [facility] CenterIM GRANULOCYTES %2019-05-06 19:47:00* Test Item Value Reference Range Interpretation Comments IM GRANULOCYTES % (test code = IM GRANULOCYTES %) 0.3 0.0- 1.0 [facility] CenterNeutrophils # (Auto)2019-05-06 19:47:00* Test Item Value Reference Range Interpretation Comments Neutrophils # (Auto) (test code = 751-8) 4.3 2.1-6.9 [facility] CenterLymphocytes # (Auto)2019-05-06 19:47:00* Test Item Value Reference Range Interpretation Comments Lymphocytes # (Auto) (test code = 57986-5) 1.6 1.0-3.2 [facility] CenterMonocytes # (Auto)2019-05-06 19:47:00* Test Item Value Reference Range Interpretation Comments Monocytes # (Auto) (test code = 742-7) 0.6 0.2-0.8 [facility] CenterEosinophils # (Auto)2019-05-06 19:47:00* Test Item Value Reference Range Interpretation Comments Eosinophils # (Auto) (test code = 711-2) 0.2 0.0-0.4 [facility] CenterBasophils # (Auto)2019-05-06 19:47:00* Test Item Value Reference Range Interpretation Comments Basophils # (Auto) (test code = 704-7) 0.1 0.0-0.1 [facility] CenterAbsolute Immature Granulocyte (auto 2019-05-06 19:47:00* Test Item Value Reference Range Interpretation Comments Absolute Immature Granulocyte (auto (rm t code = Absolute Immature Granulocyte (auto) 0.02 0-0.1 [facility] CenterCHEST SINGLE (PORTABLE)2019-05-06 19:02:00 [facility] [address] [place] [address] Patient Name: GLO DENIS MR #: [id number] : 1940 Age/Sex: 78/F Req #: [id number] Adm Physician: Ordered by: KEVIN GODINEZ THEATRE INSTRUCTOR Report #: [id number] Location: ER Room/Bed: Procedure: [id number] X/CHEST SINGLE (PORTABLE) Exam Date: 05/06/19 [...]
--- OUTSIDE RECORDS SUMMARY | 2020-01-12 19:50 | XMS REPORT | Continuity of Care Document ---
Author Author Demetrius Dasilva GLO Holt Organization [employer] Address Unknown Phone Unavailable Care Team Providers Care Dish Technician Name Role Phone [employer] Information [email or web address] Unavailable Un available Problems Problem Status Onset Date Classification Date Reported Comments Source Encounter for screening mammogram for ma lignant neoplasm of breast 04/17/2018 11/03/2018 [facility] V76.12 - SCREEN MAMMOGRA Active 03/19/2013 [facility] Neoplasm of unspecified behavior of breast 11/03/2018 [facility] Medications No Data Provided for This Section [...] mammogram, 11/22/2010 mammogram, and [facility]. TECHNIQUE: Mammographic views were obtained using digital [...] is recommended.(04/16/2019) This exam was interpreted at [id number] for ISAIAS Aggarwal, SL 15. Professional services are provided by the [facility] Diagnostic Imaging. Tj Zapien M.D., cm/penrad:04/16/2018 09:51:35 Piano And Organ Refinisher(s): NEDRA Hassan)(Tom), [facility] sent: BI-RADS 1/2 Mammogram BI-RADS: 2 [...] Professional services are provided by the [facility] Diagnostic Imaging. This exam was dictated and interpreted by [id number] for ISAIAS Aggarwal. Tj Zapien M.D., cm/penrad:10/30/2016 08:43:33 Piano And Organ Refinisher: Sun BARRIOS(R)(Tom), [facility] 10/29/2016 ISAIAS Aggarwal Breast Mammo Scrn LAITH incl CAD MA - BREAST MAMMO SCRN [facility]ITH INCL CAD MA BILATERAL DIGITAL SCREENING MAMMOGRAM WITH CAD: 10/29/2016 CLINICAL: Routine/Screening. Current study was evaluated with a Computer Aided Detection (CAD) system. Comparison is made to exams dated: 10/03/2014 mammogram, 04/30/2013 mammogram, 03/19/2012 mammogram, 11/22/2010 mammogram, 10/10/2009 mammogram - [facility] and 04/30/2007 mammogram - [facility]. The tissue of both breasts is almost entirely fat. There are bilateral benign-appearing calcifications. No significant masses, calcifications, or other findings are seen in either breast. There has been no significant interval change. IMPRESSION: BENIGN There is no mammographic evidence of malignancy. A 1 year screening mammogram is recommended. Professional services are provided by the [facility] Diagnostic Imaging. Malik Prieto M.D., jp/penrad:10/30/2016 08:00:14 Piano And Organ Refinisher: Nannette BARRIOS(Dickson)(Tom), [facility] This exam was dictated and interpreted by [address] [place], [place] [address]Jasen [id number]. letter sent: Normal exam Mammogram BI-RADS: 2 Benign 10/29/2016 [facility] Digital Mammo Screening Laith MA - DIGITAL MAMMO SCREENING LAITH MA BILATERAL DIGITAL SCREENING MAMMOGRAM WITH CAD: 10/03/2014 CLINICAL: Routine. Current study was evaluated with a Computer Aided Detection (CAD) system. Comparison is made to exams dated: 11/22/2010 mammogram, 03/19/2012 mammogram and 04/30/2013 mammogram - [facility]. The tissue of both breasts is almost entirely fat. There is a benign calcification in the left breast. No significant masses, calcifications, or other findings are seen in either breast. There has been no significant interval change. IMPRESSION: BENIGN There is no mammographic evidence of malignancy. A 1 year screening mammogram is recommended. Ankur flores/penrad:10/04/2014 10:38:36 Piano And Organ Refinisher: Nannette SNEED)(Tom), [facility] This exam was dictated and interpreted by [id number] for Jasen. letter sent: Normal exam Mammogram BI-RADS: 2 Benign 10/03/2014 [facility] Digital Mammo Screening Laith MA - DIGITAL MAMMO SCREENING LAITH MA BILATERAL DIGITAL SCREENING MAMMOGRAM WITH CAD: 04/30/2013 CLINICAL: Routine. Current study was evaluated with a Computer Aided Detection (CAD) system. Comparison is made to exam dated: 10/10/2009 mammogram - [facility]. The tissue of both breasts is almost entirely fatty. No significant masses, calcifications, or other findings are seen in either breast. There has been no significant interval change. IMPRESSION: NEGATIVE There is no mammographic evidence of malignancy. A screening mammogram in one year is recommended. Dr. Cristobal Brown M.D. eoc/penrad:05/03/2013 08:34:28 Piano And Organ Refinisher: Clara BARRIOS(R)(M), [facility] This exam was dictated and interpreted by [id number] for ISAIAS Quesada. letter sent: Normal exam [...] ADM Date DC Date Status Source OD [id number] V76.12 - SCREEN MAMMOGRA AMY TUYET 04/30/2013 04/30/2013 Active [facility] [id number] 06 Amy Tuyet 10/03/2014 10/04/2014 [facility] [id number] 07 Amy Tuyet 10/29/2016 10/30/2016 MH [facility] [id number] 08 Amy Tuyet 04/15/2018 04/16/2018 [facility] Procedures No Data Provided for This Section Assessment and Plan No Data Provided for This Section Plan of Care No Data Provided for This Section Social History Social History Date Source No data available for this section 04/16/2018 [facility] Family History No Data Provided for This Section Advance Directives No Data Provided for This Section Functional Status No Data Provided for This Section
[2020-01-12] MEDS: FUROSEMIDE INJ 10 MG/ML 4 ML VIAL IV SCH (21:26)
[2020-01-12 22:00] VITALS: BP 117/43
--- NOTE | 2020-01-12 22:00 | NUR ---
Report received by phone from er. Pt is alert and oriented x3. Respirations are even and unlabored. o2 at 2 L per n/c. No cough noted. 20 g sl in rt forearm. tele on. Bowel sounds present. Last BM 3 days ago per pt. minor catheter in place draining f clear david urine. Pt admitted with CHF, SOB, Chronic afib. Pt reports she does not have welfare visitor. Pts son lives with her.call light is within reach. Bed in low position. Addendum: 01/13/20 at 0745 by SANDRA REEVES RN Pt has bilateral lymphedema- both legs wrapped by home healthy nurse. Rash noted on lower extremities. Will request wound care consult.
[2020-01-13] VITALS: BP 117/43
[2020-01-13 04:00] VITALS: BP 103/70
[2020-01-13 04:21] LABS: BASOPHILS # (AUTO) 0.1 (0.0-0.1); BASOPHILS % 1.2 % (0.0-1.0); EOSINOPHILS # (AUTO) 0.2 (0.0-0.4); EOSINOPHILS % 3.3 % (0.0-6.0); HEMOGLOBIN 9.1 g/dL (12.0-16.0); LYMPHOCYTES # (AUTO) 1.4 (1.0-3.2); MEAN CORPUSCULAR HEMOGLOBIN 24.1 pg (28-32); MEAN CORPUSCULAR HGB CONC 28.4 g/dL (31-35); MEAN CORPUSCULAR VOLUME 84.7 fL (81-99); MONOCYTES # (AUTO) 0.8 (0.2-0.8); MONOCYTES % 14.6 % (4.4-11.3); NEUTROPHILS # (AUTO) 2.7 (2.1-6.9); NEUTROPHILS % 52.5 % (38.7-80.0); PLATELET COUNT 151 x10e3/uL (140-360); RED BLOOD COUNT 3.78 x10e6/uL (3.6-5.1); RED CELL DISTRIBUTION WIDTH 18.5 % (11.7-14.4)
[2020-01-13 04:45] LABS: CREATINE KINASE MB 1.5 ng/mL (0-5.0)
[2020-01-13 05:03] LABS: ALBUMIN 3.2 g/dL (3.5-5.0); ALBUMIN/GLOBULIN RATIO 1.2 (0.8-2.0); ALKALINE PHOSPHATASE 115 IU/L (40-150); ANION GAP 19.1 mmol/L (8-16); BLOOD UREA NITROGEN 15 mg/dL (7-26); BUN/CREATININE RATIO 13 (6-25); CALCIUM 8.7 mg/dL (8.4-10.2); CARBON DIOXIDE 17 mmol/L (22-29); CHLORIDE 110 mmol/L (98-107); CREATININE, SERUM 1.19 mg/dL (0.57-1.11); EST GLOMERULAR FILTRATION RATE 44 ML/MIN (60-); GLUCOSE 98 mg/dL (74-118); POTASSIUM 4.1 mmol/L (3.5-5.1); SODIUM 142 mmol/L (136-145)
[2020-01-13 05:08] LABS: ALANINE AMINOTRANSFERASE < 6 IU/L (0-55)
--- NOTE | 2020-01-13 06:57 | NUR ---
H&P PCP ;l Nephr cc: sob HPI: 78yoF, developed fluid overload and sob with leg edema. Pt also admits to intermittent cough. Started on lasix, and echo ordered. 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, UTI PSHx: left hip, cholecystectomy, carpal tunel, ankle, gastric bypass Allergies; see emr FH/SH; single; no cigs med;s see MAR ROS no f/c/s/n/V/D/NUNEZ/dizziness/cp/vision changes/skin rash/confusion v/s; revd PE tired appearing anicteric ns1s2 REDUED BREATH SOUNDS; MILDLY COARSE; soft nt nd B/L LEG EDEMA WITH ANTON BANDAGE IN PLACE skin dry flat affect a&ox3; labs/meds revd A/P: Pulmonary edema- diurese; check echo Peripheral edema- diuese Cardiomegaly- cont BP Hypertensive heart ds- control BP wiht meds 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
[2020-01-13] MEDS ORDERED: DOCUSATE SODIUM 100 MG CAP PO PRN (07:00)
[2020-01-13] MEDS ORDERED: ONDANSETRON HCL INJ 2MG/ML 2ML 2 MG/ML VIAL IV PRN (07:00)
--- NOTE | 2020-01-13 07:00 | NUR ---
RECEIVED PATIENT RESTING IN BED NO S/S OF DISTRESS. BED LOW, WHEELS LOCKED, SIDE RAILS X2. CALL LIGHT IN REACH WILL CONTINUE TO MONITOR PATIENT.
[2020-01-13] MEDS: CARVEDILOL 3.125 MG TAB PO SCH ×2 (08:15→17:00)
[2020-01-13 08:23] VITALS: BP 112/81
[2020-01-13 08:27] VITALS: BP 112/81
[2020-01-13] MEDS: APIXABAN 5 MG TABLET PO SCH ×2 (08:27→17:33)
[2020-01-13] MEDS: FUROSEMIDE INJ 10 MG/ML 4 ML VIAL IV SCH (08:27)
[2020-01-13] MEDS: FAMOTIDINE 20 MG TAB PO SCH (08:27)
[2020-01-13 09:12] LABS: CHOL/HDL RATIO 3.7 (3.0-3.6)
[2020-01-13] MEDS: FUROSEMIDE INJ 100 MG in SODIUM CHLORIDE 0.9% 100 ML 90 ML IV SCH ×2 (12:18→23:36)
[2020-01-13 12:31] VITALS: BP 108/65
[2020-01-13 12:46] LABS: CREATINE KINASE MB 1.6 ng/mL (0-5.0)
--- NOTE | 2020-01-13 13:37 | NUR ---
WOUND CARE CONSULT 79 YO FEMALE HX OF LYMPH EDEMA AND SWELLING BILATERAL LOWER EXTREMITIES,CHF,PULMONARY EDEMA GURMEET 15 0N MODERATE PUP STATUS AND INTERVENTIONS VISCO MATTRESS LABS: WBC- 5.15 HGB- 9.1 GLUCOSE-98 SKIN ASSESSMENT COMPLETE PATIENT PRESENTS WITH BILATERAL LOWER LEGS +2 PITTING EDEMA RED WITH NO NOTED OPEN AREAS RECOMMENDATIONS: NURSING TO CONTINUE TO MONITOR PATIENT AND KEEP SKIN CLEAN AND FREE FROM LOOSE STOOL OR IRRITATING MOISTURE AND CONTINUE TO FOLLOW MODERATE PUP INTERVENTIONS NURSING TO CONTINUE TO GET PATIENT OUT OF BED FOR MEALS AND MUCH TOLERATED NURSING TO MAINTAIN UNNA BOOT APPLICATION TO BILATERAL LEGS AT THIS TIME COMPRESSION IN MINIMAL TO MODERATE R/T CHF STATUS IF ANY INCREASED DISCOMFORT OR SHORTNESS OF BREATH NOTED UNNA BOOTS SHOULD BE REMOVED AND LEGS ELEVATED Addendum: 01/13/20 at 1345 by Yair Siu RN Amended: Links added.
[2020-01-13 14:13] LABS: CLARITY,URINE SL CLOUDY (CLEAR); COLOR,URINE YELLOW (YELLOW); LEUKOCYTE ESTERASE ,URINE SMALL (NEGATIVE); NITRITE,URINE NEGATIVE (NEGATIVE); PROTEIN,URINE DIPSTICK NEGATIVE (NEGATIVE)
[2020-01-13 14:14] LABS: BILIRUBIN,URINE NEGATIVE (NEGATIVE); KETONES,URINE NEGATIVE (NEGATIVE); URINE UROBILINOGEN 0.2 mg/dL (0.2 - 1)
[2020-01-13 14:24] LABS: BACTERIA,URINE RARE /HPF; EPITHELIAL CELLS,URINE RARE /LPF
[2020-01-13 14:38] LABS: SODIUM,URINE 129 mmol/L
--- NOTE | 2020-01-13 14:41 | NUR ---
Spoke with Dr. Vela. Cleared by renal for picc line placement.
--- NOTE | 2020-01-13 15:31 | Consultation ---
DATE OF CONSULTATION: Renal consultation Thank you for the consultation, Dr. Dunn. HISTORY OF PRESENT ILLNESS: Ms. Miramontes is a pleasant 79-year-old female patient with past medical history significant for hypertension, congestive heart failure and likely chronic kidney disease, also history of atrial fibrillation, came into the hospital with worsening shortness of breath, was found to have fluid overload, pulmonary edema on chest x-ray, also has lower extremity edema at least 3 to 4+, pitting in nature bilaterally. Found to have creatinine of around 1.2 mg/dL, bicarb of 17. Renal consultation asked for management of her chronic kidney disease as well as fluid overload and volume status. The patient is currently on Lasix intermittent dosing, has still shortness of breath, has still extensive lower extremity edema. No chest pain. No fever. No chills. No nausea, no vomiting, no diarrhea. No abdominal pain. No other symptoms or signs were outlined above. PAST MEDICAL HISTORY: As outlined above. ALLERGIES: NO KNOWN DRUG ALLERGIES. SOCIAL HISTORY: No tobacco or alcohol use. FAMILY HISTORY: Noncontributory. REVIEW OF SYSTEMS: See HPI. Otherwise, all systems negative. MEDICATIONS: Reviewed per chart. PHYSICAL EXAMINATION: VITAL SIGNS: Blood pressure 112/81, 103 pulse, 20 respirations, afebrile. HEENT: No cervical lymphadenopathy. NECK: Supple without masses. No obvious JVD. Moist appearing oral mucosae. Moist with good skin turgor. CHEST WALL: Symmetric expansion. No chest wall tenderness. LUNGS: Rhonchi bilaterally with lung nieves. CARDIOVASCULAR: S1, S2. No obvious gallop, rub, or murmur. ABDOMEN: Soft. Positive bowel sounds. Nontender. EXTREMITIES: Evidence at least 3 to 4+ pitting edema. No clubbing. No cyanosis. NEUROLOGIC: Awake, alert, and oriented x3. Grossly nonfocal exam. LABORATORY DATA: Sodium 142, potassium 4.1, bicarb 17, BUN 15, and creatinine is 1.2. BNP was 547. Chest x-ray shows pulmonary edema. IMPRESSION AND PLAN: 1. Chronic kidney disease stage 2 at baseline, likely has chronic kidney disease stage 3 from a history of hypertension. For now, we would be aggressive with IV diuresis. We will discontinue scheduled Lasix bolus dosing and we will place on Lasix drip at 10 mg/hour. Monitor strict I's and Os and daily weights, keep on fluid restriction 1500 mL per day and we will make further recommendations. Repeat labs in the morning. Also, basic metabolic panel, mag, phos, and CBC. We will get a baseline renal ultrasound as well and urinalysis to evaluate for possibility of urinary tract infection/pyelonephritis. Avoid IV dye. Avoid nonsteroidal anti-inflammatory drugs. We will make further recommendations. 2. Hypertension. Blood pressure is controlled. 3. Fluid overload/pulmonary edema. Continue Lasix drip. Discontinue Lasix scheduled doses and we will monitor closely for response to Lasix drip and make further recommendations. Thank you once again for the consultation, Dr. Dunn. 4. Metabolic acidosis. Suspect this is secondary to chronic kidney disease, but also from fluid overload and will benefit from IV diuresis with Lasix drip and we will watch for improvement in the bicarb. Thank you once again for the consultation. We will follow the patient closely along with you and make further recommendations. Omid Vela MD TH/MODL /[id number] cc: Thony Dunn MD
--- NOTE | 2020-01-13 16:32 | Diagnostic Imaging Report ---
EXAM: Renal Ultrasound INDICATION: CHF COMPARISON: None TECHNIQUE: Transverse and longitudinal images of the kidneys and bladder were obtained. FINDINGS: Right Kidney: Length: 8.7 cm Appearance: Normal echogenicity. Collecting system: No hydronephrosis Stones: None Cyst/Mass: None Left Kidney: Length: 6.8 cm Appearance: Normal echogenicity. Collecting system: No hydronephrosis Stones: None Cyst/Mass: None Bladder: Joseph catheter in the decompressed bladder. IMPRESSION: No hydronephrosis. Limited visualization of left kidney due to body habitus. Signed by: Slick Dowell MD on 01/13/2020 4:29 PM
--- NOTE | 2020-01-13 17:10 | NUR ---
Nutrition Screen Note RD Recommendation for Physician: -Continue cardiac diet Plan of Care: RD following, monitoring for tolerance and adequacy Nutrition reason for involvement: Diagnosis - CHF Primary Diagnose(s): CHF, chronic afib, dyspnea, pulmonary edema 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, UTI, cholecystectomy, gastric bypass Ht: 64 in Wt: 330lb BMI: 56.6 kg/m2 IBW:[address] Assessment: (01/13/20) Chart reviewed. Labs and meds reviewed. Pt is a 79 year old female admitted with CHF, chronic afib, dyspnea, and pulmonary edema. Pt reports eating most of her meals. No weight loss reported and pt stated she usually weighs 330 lbs. No N/V/D/C or chewing/swallowing issues. Pt declined the need for diet education. Will continue to monitor. Current Diet: cardiac Malnutrition Evaluation (01/13/20) The patient does not meet criteria for a specified degree of malnutrition at this time. Will re-evaluate at follow-up as appropriate. Diet Education Needs Assessment: pt declined the need for diet education Nutrition Care Level: low pt is eating well Signed: Miranda Fuller, RD, LD
--- NOTE | 2020-01-13 19:20 | NUR ---
BEDSIDE SHIFT REPORT RECEIVED FROM DAY RN. PT IS ALERT AND ORINETED X3. O2 2L PER N/C. RESPIRATIONS EVEN AND UNLABORED. TELE ON . BILATERAL UPPER AND LOWER EXTREMITIES EDEMATOUS. BOSWELL DRAINING CLEAR YELLOW URINE. BOWEL SOUNDS PRESENT. BILATERAL LOWER EXTREMITIES WRAPPED- LYMPHADEMA.PT AWAITING PICC LINE INSERTION.HX AFIB NOTED. CALL LIGHT WITHIN REACH. BED IN LOW POSITION.
[2020-01-13 20:00] VITALS: BP 92/55
[2020-01-13] MEDS ORDERED: ZOLPIDEM TARTRATE 5 MG TAB PO PRN (21:00)
--- NOTE | 2020-01-13 22:44 | Diagnostic Imaging Report ---
EXAMINATION: CHEST XRAY LINE PLACEMENT INDICATION: ^PICC line insertion, verify position COMPARISON: Chest x-ray 01/12/2020 FINDINGS: TUBES and LINES: New left upper extremity PICC tip terminates at the superior cavoatrial junction. LUNGS/PLEURA: Normal lung volumes. Perihilar and lower lung haziness. Obscured left hemidiaphragm. Prominent central pulmonary vasculature. No pneumothorax. HEART AND MEDIASTINUM: Cardiac size is mildly enlarged. BONES AND SOFT TISSUES: Unchanged UPPER ABDOMEN: No free air under the diaphragm. IMPRESSION: New left upper extremity PICC tip terminates at the superior cavoatrial junction. Cardiomegaly and pulmonary edema with suspected small bilateral pleural effusions. Superimposed infection is possible. Signed by: Collin James DO on 01/13/2020 10:40 PM
--- NOTE | 2020-01-13 23:30 | NUR ---
PICC LINE PLACED IN LEFT UPPER ARM. cxr DONE AND OK TO USE PER PICC NURSE AFTER CHECK WITH DR HELTONLOGMaria Guadalupe. SMALL AMOUNT BLEEDING NOTED FROM LEFT PICC INSERTION SITE. PRESSURE DRESSING TO SITE. PICC DL - BOTH PORT FLUSH EASILY. PT C/O OF LOWER BACK PAIN. WILL MONITOR. LOWER BACK PAIN AND CALL PHYSICIIAN PRN.
[2020-01-14] VITALS (8 sets, daily range): BP systolic 93–113; BP diastolic 60–101
--- NOTE | 2020-01-14 05:27 | NUR ---
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
--- NOTE | 2020-01-14 06:00 | NUR ---
DR ABARCA HERE TO SEE PT. cXR DONE FOR PICC LINE PLACEMENT. REPEAT CXR HELD UNTIL ASK DR VAUGHN ABOUT DOING ANOTHER CXR. PASSED TO DAY RN IN REPORT. CARDIOLOGY CONSULT WITH DR WOODWARD- NOTIFIED OFFICE BY PHONE. DR ABARCA WANT PT ON FLUID RESTRICTION OF 1000 ML/[address] ABARCA WANT UPPER EXTREMITIES WRPPED. PT REMAINS ON LASIX DRIP WHICH WAS STARTED ON 01/13/20 2330 AFTER OK TO USE PICC LINE.LAMONT PAIN LESS. WILL CONTINUE TO MONITOR. CALL LIGHT WITHIN REACH.BED IN LOW POSITION. LAB DRAWN ORDERED. URINE FOR PROTEIN COLLECTED AND SENT TO LAB.
[2020-01-14 06:15] LABS: BASOPHILS # (AUTO) 0.1 (0.0-0.1); BASOPHILS % 0.8 % (0.0-1.0); EOSINOPHILS # (AUTO) 0.2 (0.0-0.4); EOSINOPHILS % 3.2 % (0.0-6.0); HEMATOCRIT 27.9 % (34.2-44.1); HEMOGLOBIN 8.4 g/dL (12.0-16.0); LYMPHOCYTES # (AUTO) 1.1 (1.0-3.2); LYMPHOCYTES % 16.7 % (18.0-39.1); MEAN CORPUSCULAR HEMOGLOBIN 25.8 pg (28-32); MEAN CORPUSCULAR HGB CONC 30.1 g/dL (31-35); MEAN CORPUSCULAR VOLUME 85.6 fL (81-99); MONOCYTES # (AUTO) 1.1 (0.2-0.8); NEUTROPHILS # (AUTO) 3.9 (2.1-6.9); NEUTROPHILS % 61.8 % (38.7-80.0); PLATELET COUNT 141 x10e3/uL (140-360); RED BLOOD COUNT 3.26 x10e6/uL (3.6-5.1); RED CELL DISTRIBUTION WIDTH 18.4 % (11.7-14.4)
[2020-01-14 06:44] LABS: ALBUMIN/GLOBULIN RATIO 1.2 (0.8-2.0); ALKALINE PHOSPHATASE 109 IU/L (40-150); ANION GAP 14.9 mmol/L (8-16); BLOOD UREA NITROGEN 14 mg/dL (7-26); BUN/CREATININE RATIO 13 (6-25); CALCIUM 8.4 mg/dL (8.4-10.2); CARBON DIOXIDE 23 mmol/L (22-29); CHLORIDE 107 mmol/L (98-107); CREATININE, SERUM 1.09 mg/dL (0.57-1.11); EST GLOMERULAR FILTRATION RATE 49 ML/MIN (60-); GLUCOSE 106 mg/dL (74-118); MAGNESIUM 1.4 MG/DL (1.3-2.1); PHOSPHORUS 3.4 MG/DL (2.3-4.7); POTASSIUM 3.9 mmol/L (3.5-5.1); SODIUM 141 mmol/L (136-145)
[2020-01-14 06:54] LABS: ALANINE AMINOTRANSFERASE < 6 IU/L (0-55)
--- NOTE | 2020-01-14 07:00 | NUR ---
RECEIVED PATIENT RESTING IN BED NO S/S OF DISTRESS. BED LOW, WHEELS LOCKED, SIDE RAILS X2. CALL LIGHT IN REACH WILL CONTINUE TO MONITOR PATIENT.
[2020-01-14] MEDS: CARVEDILOL 3.125 MG TAB PO SCH ×2 (09:00→16:04)
[2020-01-14] MEDS: FAMOTIDINE 20 MG TAB PO SCH (09:01)
[2020-01-14] MEDS: APIXABAN 5 MG TABLET PO SCH ×2 (09:01→16:15)
[2020-01-14] MEDS: FUROSEMIDE INJ 100 MG in SODIUM CHLORIDE 0.9% 100 ML 90 ML IV SCH ×3 (09:01→20:45)
--- NOTE | 2020-01-14 09:39 | Progress Note ---
DATE: 01/14/2020 Renal Progress Note SUBJECTIVE: Followed for chronic kidney disease, stage 3 as well as anasarca. The patient is responding well to the Lasix drip. The patient's anasarca is slowly improving. No nausea. No vomiting. Shortness of breath has improved also. OBJECTIVE: VITAL SIGNS: Blood pressure is 112/72, pulse 114, afebrile, 20 respirations, and 94% on 3 L nasal cannula. LUNGS: Rhonchi bilaterally. CARDIOVASCULAR: S1 and S2. No rub. ABDOMEN: Soft and nontender. EXTREMITIES: 3+ edema. No clubbing. No cyanosis. LABORATORY DATA: Potassium 3.9, BUN is 14, creatinine 1.1, magnesium is 1.4, and phosphorus is 3.4. IMPRESSION AND PLAN: 1. Chronic kidney disease stage 3, at baseline. We will continue to monitor closely. 2. Hypertension. Blood pressure is on low side of normal. The plan would be recommend to be cautious with getting blood pressure medications and hold them for systolic BP less than 120. 3. Anasarca. No evidence of nephrotic-range proteinuria, likely is from probable right-sided heart failure. We will continue with Lasix drip, diuresis for now. MD VERONICA Skinner/NICK /[id number]
--- NOTE | 2020-01-14 09:47 | Diagnostic Imaging Report ---
EXAMINATION: CHEST SINGLE (PORTABLE) INDICATION: CHF COMPARISON: Chest radiograph 01/13/2020 FINDINGS: LINES/TUBES:Left PICC line unchanged. EKG leads overlie the chest. LUNGS:The lungs are moderately inflated. There is left basilar opacity silhouetting the left jarne diaphragm. PLEURA:Small left pleural effusion. No pneumothorax. MEDIASTINUM:The cardiomediastinal silhouette appears normal in size and shape. BONES/SOFT TISSUES:No acute osseous injury. ABDOMEN:No free air under the diaphragm. IMPRESSION: No significant interval change. Signed by: Slick Dowell MD on 01/14/2020 9:44 AM
[2020-01-14] MEDS: POTASSIUM CHLORIDE 20 MEQ TAB CR PO SCH ×2 (09:55→16:15)
--- NOTE | 2020-01-14 10:15 | NUR ---
Pt sleeping soundly and no family present. Senior Accountant Analyst left a card describing availability of development advisor and instructions on how to contact a development advisor. BUCK PATIÑO Senior Accountant Analyst Spiritual Care Department O: [phone]
--- NOTE | 2020-01-14 10:18 | NUR ---
WOUND CARE CONSULT FOR FOLLOW UP FOR BILATERAL LE UNNA BOOT COMPRESSION BILATERAL WRAPS INTACT WITH NO BREAKTHROUGH DRAINAGE OR INCREASED TIGHTNESS OR DIS COMFORT PATIENT WITHOUT SIGNS OR COMPLAINTS OF SOB NURSING TO CONTINUE TO MAINTAIN UNNA BOOT WRAPS WOUNDCARE WILL FOLLOW UP FRIDAY TO REASSESS BILATERAL WRAPS Addendum: 01/14/20 at 1025 by Yair Siu RN Amended: Links added.
[2020-01-14] MEDS ORDERED: ONDANSETRON HCL 4 MG ORAL DISINTEGRATING TAB PO PRN (11:00)
--- NOTE | 2020-01-14 11:25 | NUR ---
Received order for acute rehab eval. Pt had started the process of getting into inpatient rehab at [facility] from home. Pt states would like to go there if she gets accepted. Choice letter signed and placed in chart. Copy given to pt. Clinicals faxed to [facility] at [phone]. Kiesha with [facility] was notified.
--- NOTE | 2020-01-14 15:48 | NUR ---
SPOKE WITH DR. LUNA REGARDING LOW BLOOD PRESSURE AND PATIENT BEING ON LASIX DRIP. ORDER TO CONTINUE LASIX DRIP AT THIS TIME AND START PATIENT ON MIDODRINE. NEW ORDERS IMPLEMENTED.
[2020-01-14] MEDS: MIDODRINE 2.5 MG TAB PO SCH (16:15)
[2020-01-14] MEDS ORDERED: DIGOXIN INJ 0.25 MG/ML 2 ML AMP IV ONE (16:30)
--- NOTE | 2020-01-14 16:52 | Consultation ---
DATE OF CONSULTATION: Cardiology consultation REASON FOR CONSULTATION: Heart failure. HISTORY OF PRESENT ILLNESS: This is a 79-year-old woman with a history of paroxysmal atrial fibrillation, morbid obesity, chronic kidney disease, and hypertension, who presented to the emergency department with shortness of breath and peripheral edema. The patient's symptoms were progressively worsening, moderate in intensity, no associated chest pain. No other exacerbating or relieving factors. She was started on Lasix infusion and is diuresing well now. She has no active cardiac complaints or conditions ongoing. REVIEW OF SYSTEMS: A 12-point review of system was conducted, is negative except as stated above in the HPI. PAST MEDICAL HISTORY: As stated above in the HPI. PAST SURGICAL HISTORY: Cholecystectomy, hysterectomy, cataracts, and hip replacement. PAST FAMILY HISTORY: Noncontributory to current illness. ALLERGIES: NO KNOWN DRUG ALLERGIES. SOCIAL HISTORY: No illicit drug, alcohol, or tobacco use. MEDICATIONS: See medications reconciliation form. PHYSICAL EXAMINATION: VITAL SIGNS: Temperature is 98.1, heart rate is 118, respirations are 16, blood pressure is 96/60, and oxygen saturation 100% on 2 L nasal cannula. GENERAL: She is well-appearing elderly woman, lying comfortably in bed, no apparent distress. Alert and oriented x3. HEAD: Normocephalic and atraumatic. Eyes, the extraocular movements are intact. Conjunctivae clear. NECK: No JVD. No bruits. CARDIOVASCULAR: She is irregularly irregular. Tachycardic. No murmurs. LUNGS: Decreased breath sounds at bases. ABDOMEN: Obese, soft, nontender. EXTREMITIES: Significant edema present. VASCULAR: 2+ pulses. SKIN: Warm and dry. Intact. LABORATORY DATA: Reviewed. Sodium 141, potassium 3.9, and creatinine is 1.09. Troponin is 0.053. BNP is 523. Chest x-ray shows small left pleural effusion. Echocardiogram reviewed shows a preserved left ventricular systolic function with ejection fraction of 55-60% A 12-lead electrocardiogram shows atrial fibrillation with right ventricular response. IMPRESSION: 1. Atrial fibrillation with rapid ventricular response. 2. Anasarca. 3. Acute on chronic diastolic heart failure. 4. Hypertension. 5. Obesity. RECOMMENDATIONS: The patient is mildly hypotensive at this current time. Her carvedilol is being held due to hypotension. Continue midodrine for blood pressure support. Continue Lasix infusion per Nephrology. Monitor in's and out's, lab values including electrolytes, and creatinine. We will start the patient on digoxin for better rate control. Continue Eliquis for anticoagulation. DO MALORIE Kraft/LATASHAL /[id number]
--- NOTE | 2020-01-14 19:16 | NUR ---
Received pt in bed awake, alert with no s/sx of acute distress noted. Bedside report completed. Bed in low and locked position, personal items and call light within reach. IVF infusing with no diff.
[2020-01-15] VITALS: BP 82/48
--- NOTE | 2020-01-15 00:43 | NUR ---
Call placed to Dr. Hudson regarding low BP, orders noted to decrease lasix gtt to 5ml per hour and to check bp all extremities
[2020-01-15 04:00] VITALS: BP 98/61
[2020-01-15 06:03] LABS: BASOPHILS # (AUTO) 0.1 (0.0-0.1); BASOPHILS % 0.8 % (0.0-1.0); EOSINOPHILS % 0.4 % (0.0-6.0); HEMATOCRIT 28.9 % (34.2-44.1); HEMOGLOBIN 8.3 g/dL (12.0-16.0); LYMPHOCYTES # (AUTO) 1.3 (1.0-3.2); LYMPHOCYTES % 16.8 % (18.0-39.1); MEAN CORPUSCULAR HEMOGLOBIN 24.4 pg (28-32); MEAN CORPUSCULAR HGB CONC 28.7 g/dL (31-35); MONOCYTES # (AUTO) 1.6 (0.2-0.8); MONOCYTES % 19.9 % (4.4-11.3); NEUTROPHILS # (AUTO) 4.8 (2.1-6.9); NEUTROPHILS % 61.6 % (38.7-80.0); PLATELET COUNT 147 x10e3/uL (140-360); RED CELL DISTRIBUTION WIDTH 18.2 % (11.7-14.4)
--- NOTE | 2020-01-15 06:04 | NUR ---
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
[2020-01-15 06:33] LABS: ANION GAP 16.9 mmol/L (8-16); CALCIUM 8.4 mg/dL (8.4-10.2); CREATININE, SERUM 1.08 mg/dL (0.57-1.11); MAGNESIUM 1.3 MG/DL (1.3-2.1); POTASSIUM 3.9 mmol/L (3.5-5.1)
[2020-01-15] MEDS: FAMOTIDINE 20 MG TAB PO SCH (08:26)
[2020-01-15] MEDS: APIXABAN 5 MG TABLET PO SCH ×2 (08:26→17:22)
[2020-01-15] MEDS: POTASSIUM CHLORIDE 20 MEQ TAB CR PO SCH ×2 (08:26→17:22)
[2020-01-15] MEDS: CARVEDILOL 3.125 MG TAB PO SCH ×2 (08:26→17:22)
[2020-01-15] MEDS: DIGOXIN 0.25 MG TAB PO SCH (08:26)
[2020-01-15] MEDS: MIDODRINE 2.5 MG TAB PO SCH ×2 (08:27→17:22)
--- NOTE | 2020-01-15 11:01 | Progress Note ---
DATE: Cardiology Progress Note SUBJECTIVE: The patient is feeling better. Swelling and shortness of breath have improved. OBJECTIVE: VITAL SIGNS: Temperature 98.6, heart rate ranges from 85 to 112, blood pressure is 105/70, and oxygen saturation is 98% on 2 L nasal cannula. GENERAL: Elderly-appearing woman, no apparent distress, sleeping comfortably. CARDIOVASCULAR: Irregularly irregular. LUNGS: Diminished breath sounds at bases. ABDOMEN: Obese, soft, and nontender. EXTREMITIES: Significant edema present. CARDIOVASCULAR MEDICATIONS: Reviewed. Include midodrine, digoxin, carvedilol, and Eliquis. LABORATORY DATA: Reviewed. Hemoglobin 8.3. Creatinine 1.08 and potassium 3.9. Telemetry monitoring shows atrial fibrillation with episodes of rapid ventricular response. IMPRESSION: 1. Atrial fibrillation. 2. Anasarca. 3. Ihgul-ti-ezhabhd diastolic heart failure. 4. Hypertension. 5. Obesity. RECOMMENDATIONS: Continue monitoring for blood pressure control. Carvedilol is being held due to episodes of hypotension. Continue digoxin for rate control, as this will not affect her blood pressure. Continue Lasix infusion per Nephrology. Continue Eliquis for anticoagulation. Monitor on telemetry. We will continue to follow along with you. DO MALORIE Kraft/MODL /[id number]
[2020-01-15] MEDS ORDERED: MAGNESIUM SULFATE 2GM/50ML 50 ML IV ONE (11:30)
[2020-01-15 12:00] VITALS: BP 95/53
--- NOTE | 2020-01-15 12:21 | Progress Note ---
DATE: 01/15/2020 Renal Progress Note SUBJECTIVE: Followed for chronic kidney disease, stage 3. Stable kidney function. Creatinine around 1.08 to 1.09. The patient has excellent urine output. Lasix drip has been decreased to 5 mg/hour. The patient is doing well. Blood pressure tend to run low, but that is going to be baseline for her in the 90s mmHg systolic BP. She has cardiomyopathy. OBJECTIVE: VITAL SIGNS: Have been noted and are stable. LUNGS: No rales at the bases bilaterally. CARDIOVASCULAR: S1 and S2. No rub. ABDOMEN: Soft. Positive bowel sounds. EXTREMITIES: At least 3 to 4+ edema. She is, however, diuresing well. LABORATORY DATA: Potassium 3.9, BUN is 16, creatinine is 1.08, and magnesium 1.3. IMPRESSION AND PLAN: 1. Chronic kidney disease stage 3, stable at this time. We will continue to monitor. 2. Hypertension/hypotension. Continue low-dose midodrine. The patient is not going to have a very high blood pressure and since she is asymptomatic, would not worry about it if blood pressure stays in the 90s mmHg systolic BP. 3. Anasarca. Continue with Lasix drip diuresis and continue to monitor for improvement. We will make further recommendations. 4. Hyperkalemia. Continue oral potassium chloride. MD VERONICA Skinner/MODL /[id number]
[2020-01-15] MEDS: FUROSEMIDE INJ 100 MG in SODIUM CHLORIDE 0.9% 100 ML 90 ML IV SCH (14:11)
[2020-01-15 16:00] VITALS: BP 88/38
[2020-01-15 20:00] VITALS: BP 88/61
--- NOTE | 2020-01-15 20:16 | NUR ---
Received pt in bed asleep, easily aroused. No c/o at this time. Bed in low and locked position, call aguilar and personal items within reach. Speciality bed delivered, will transfer pt. No s/sx of acute distress noted, bedside report completed Will cont to mon
[2020-01-16] VITALS (8 sets, daily range): BP systolic 77–90; BP diastolic 35–51
[2020-01-16 06:32] LABS: ANION GAP 13.7 mmol/L (8-16); CALCIUM 8.1 mg/dL (8.4-10.2); CREATININE, SERUM 1.11 mg/dL (0.57-1.11); MAGNESIUM 1.3 MG/DL (1.3-2.1); PHOSPHORUS 3.5 MG/DL (2.3-4.7); POTASSIUM 3.7 mmol/L (3.5-5.1)
[2020-01-16] MEDS: FUROSEMIDE INJ 100 MG in SODIUM CHLORIDE 0.9% 100 ML 90 ML IV SCH ×3 (09:05→17:10)
[2020-01-16] MEDS: CARVEDILOL 3.125 MG TAB PO SCH ×2 (09:07→17:50)
[2020-01-16] MEDS: APIXABAN 5 MG TABLET PO SCH ×2 (09:07→17:50)
[2020-01-16] MEDS: POTASSIUM CHLORIDE 20 MEQ TAB CR PO SCH ×2 (09:30→17:50)
[2020-01-16] MEDS: MIDODRINE 2.5 MG TAB PO SCH ×2 (09:31→17:50)
[2020-01-16] MEDS: FAMOTIDINE 20 MG TAB PO SCH (09:31)
[2020-01-16] MEDS: DIGOXIN 0.25 MG TAB PO SCH (09:31)
--- NOTE | 2020-01-16 11:49 | NUR ---
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 Glenn Dunn MD, PhD.
[2020-01-16 12:17] LABS: BILIRUBIN,URINE NEGATIVE (NEGATIVE); CLARITY,URINE CLOUDY (CLEAR); COLOR,URINE YELLOW (YELLOW); KETONES,URINE NEGATIVE (NEGATIVE); LEUKOCYTE ESTERASE ,URINE MODERATE (NEGATIVE); NITRITE,URINE NEGATIVE (NEGATIVE); PROTEIN,URINE DIPSTICK NEGATIVE (NEGATIVE); URINE UROBILINOGEN 1 mg/dL (0.2 - 1)
[2020-01-16 12:30] LABS: BACTERIA,URINE MANY /HPF; EPITHELIAL CELLS,URINE FEW /LPF; WBC,URINE (MAN) >50 /HPF (0-5)
[2020-01-16] MEDS: MAGNESIUM OXIDE 400 MG TAB PO SCH ×2 (12:59→17:50)
[2020-01-16] MEDS: CEFTRIAXONE SOD 1 GM/NS 50 ML 50 ML IV SCH (13:36)
[2020-01-17] VITALS (8 sets, daily range): BP systolic 83–118; BP diastolic 46–63
--- NOTE | 2020-01-17 00:01 | Progress Note ---
DATE: 01/16/2020 Renal Progress Note SUBJECTIVE: Followed for chronic kidney stage 3, stable kidney function at this time. The patient has low blood pressures however, has cardiomyopathy and is not going to have blood pressure consistently in the 100 mmHg. The patient is asymptomatic with high 80s, low 90s. Also on low dose midodrine. No nausea, no vomiting, shortness of breath has improved and lower extremity edema is also improving. The patient is non oliguric, responding well to Lasix drip. OBJECTIVE: VITAL SIGNS: Noted. Last blood pressure is 82/41, however, the patient has been higher that previously 95/53. The patient is afebrile, and 96 pulse. LUNGS: Mostly clear to auscultation with minimal crackles at the bases. CARDIOVASCULAR: S1 and S2, tachycardic. ABDOMEN: Soft, positive bowel sounds. EXTREMITIES: 3+ edema of her lower extremities bilaterally. LABORATORY DATA: Sodium 139, potassium 3.7, BUN 19, creatinine 1.1, magnesium 1.3, and phosphorus 3.5. IMPRESSION AND PLAN: 1. Chronic kidney disease, stage 3; appears to be at her baseline. We will continue to monitor. 2. Hypertension/hypotension. Continue low dose midodrine, has cardiomyopathy and therefore will not mount to high blood pressure and the patient is asymptomatic at this time. 3. Anasarca, probable right-sided heart failure. Continue Lasix drip at 5 mg per hour and continue to monitor closely. May consider adding additional diuretics to allow for more diuresis. The patient's weight has remained stable over the last 2 days. However, the patient is achieving a negative fluid balance. We will continue to monitor. MD VERONICA Skinner/MODL /[id number]
[2020-01-17] MEDS: FUROSEMIDE INJ 100 MG in SODIUM CHLORIDE 0.9% 100 ML 90 ML IV SCH ×2 (03:54→15:00)
[2020-01-17 05:42] LABS: ALBUMIN 2.6 g/dL (3.5-5.0); ALKALINE PHOSPHATASE 124 IU/L (40-150); ANION GAP 11.9 mmol/L (8-16); BLOOD UREA NITROGEN 25 mg/dL (7-26); BUN/CREATININE RATIO 19 (6-25); CARBON DIOXIDE 31 mmol/L (22-29); CHLORIDE 101 mmol/L (98-107); CREATININE, SERUM 1.32 mg/dL (0.57-1.11); EST GLOMERULAR FILTRATION RATE 39 ML/MIN (60-); GLUCOSE 128 mg/dL (74-118); MAGNESIUM 1.4 MG/DL (1.3-2.1); PHOSPHORUS 3.5 MG/DL (2.3-4.7); POTASSIUM 3.9 mmol/L (3.5-5.1); SODIUM 140 mmol/L (136-145)
[2020-01-17 05:46] LABS: ALANINE AMINOTRANSFERASE < 6 IU/L (0-55)
[2020-01-17] MEDS: APIXABAN 5 MG TABLET PO SCH ×2 (08:11→17:26)
[2020-01-17] MEDS: CARVEDILOL 3.125 MG TAB PO SCH ×2 (08:11→17:00)
[2020-01-17] MEDS: POTASSIUM CHLORIDE 20 MEQ TAB CR PO SCH ×2 (08:12→17:27)
[2020-01-17] MEDS: MAGNESIUM OXIDE 400 MG TAB PO SCH ×2 (08:12→17:26)
[2020-01-17] MEDS: FAMOTIDINE 20 MG TAB PO SCH (08:12)
[2020-01-17] MEDS: DIGOXIN 0.25 MG TAB PO SCH (08:12)
[2020-01-17] MEDS: MIDODRINE 2.5 MG TAB PO SCH ×3 (08:12→21:22)
--- NOTE | 2020-01-17 10:27 | NUR ---
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 01-16 titrate midodrine up; cont diuresis; monitor renal fn Glenn Dunn MD, PhD.
--- NOTE | 2020-01-17 13:29 | Progress Note ---
DATE: Cardiology Progress Note SUBJECTIVE: The patient is feeling better. Denies any palpitations or shortness of breath. OBJECTIVE: VITAL SIGNS: Temperature is 98.1, heart rate is 95, respirations are 20, blood pressure is 85/35, oxygen saturation 98% on 2 L nasal cannula. GENERAL: She is an elderly woman, in no apparent distress. CARDIOVASCULAR: Irregularly irregular. LUNGS: Diminished breath sounds at bases. ABDOMEN: Obese, soft, nontender. EXTREMITIES: Edema. CARDIOVASCULAR MEDICATIONS: Reviewed. LABORATORY DATA: Reviewed. Creatinine 1.1, potassium 3.7. Telemetry monitoring shows atrial fibrillation. IMPRESSION: 1. Atrial fibrillation. 2. Anasarca. 3. Hedfg-uc-myapatd diastolic heart failure. 4. Hypotension. 5. Obesity. RECOMMENDATIONS: Carvedilol is still being held. Continue digoxin for rate control. Increase midodrine to t.i.d. dosing for hypotension. Continue Lasix per Nephrology. Continue Eliquis for anticoagulation. Please continue monitoring on telemetry. Christopher Rutledge DO [facility]/MODL /[id number]
[2020-01-17] MEDS: CEFTRIAXONE SOD 1 GM/NS 50 ML 50 ML IV SCH (14:34)
--- NOTE | 2020-01-17 15:36 | Progress Note ---
DATE: 01/17/2020 Nephrology Progress Note SUBJECTIVE: Followed for chronic kidney disease, stage 3 and fluid overload. Feels much better now. On IV Lasix infusion. No shortness of breath or nausea. OBJECTIVE: GENERAL: The patient is alert and oriented, and appears very comfortable. VITAL SIGNS: Blood pressure 93/56, afebrile. Pulse 77 per minute, respirations 18 per minute, and pulse oximetry showed 90% saturation. NECK: Positive for JVP. CHEST: Bilateral air entry. I do not hear any wheezing. CARDIOVASCULAR: Shows S1 and S2. ABDOMEN: Soft, depressible, and nondistended. EXTREMITIES: Chronic bilateral leg edema with some wrinkling of the skin now. NEUROLOGICAL: Alert and oriented x3. LABORATORY DATA: Last hemoglobin was 8.3 with normal white count and platelets. Serum chemistries today show creatinine of 1.3, from 1.1 yesterday. BUN 25. Electrolytes normal. Serum albumin was 2.6. IMPRESSION AND PLAN: 1. Chronic kidney disease stage 3, appears stable overall. Continue to monitor. 2. Hypotension. Continue low-dose midodrine. She does have chronically low blood pressures from her cardiomyopathy, but is usually asymptomatic. 3. Anasarca, responding to IV Lasix infusion. Continue same for now and monitor electrolytes and intake and output. Santiago Keys MD [facility]/MODL /[id number]
--- NOTE | 2020-01-17 16:32 | NUR ---
AAOX3. ACYANOTIC. O2 AT 2L VIA NASAL CANNULA. PATIENT ARRIVED TO UNIT AT APPROXIMATELY 1600. NO DISTRESS NOTED. CALL LIGHT IN REACH. SIDE RAILS UP X2. BED LOW AND LOCKED.
--- NOTE | 2020-01-17 19:42 | Progress Note ---
DATE: 01/17/2020 Cardiology Progress Note SUBJECTIVE: The patient denies chest pain or shortness of breath. OBJECTIVE: Temperature 97.7 degrees, pulse 77, respiratory rate 18, blood pressure 93/56, oxygen saturation 96%. GENERAL: Elderly woman, in no acute distress. Awake and alert. LUNGS: Clear to auscultation bilaterally. No wheezes or crackles. CARDIOVASCULAR: Normal rate. Irregularly irregular. ABDOMEN: Soft and nontender. EXTREMITIES: 1+ pitting edema. CARDIAC MEDICATIONS: Midodrine 7.5 mg p.o. q.8 hours, digoxin 0.25 mg p.o. daily, apixaban 5 mg p.o. b.i.d., Lasix drip, carvedilol 3.125 mg p.o. b.i.d. LABORATORY DATA: Sodium 140, potassium 3.9, chloride 101, CO2 31, BUN 25, and creatinine 1.32. TELEMETRY: Personally reviewed and interpreted, revealing atrial fibrillation. IMPRESSION: 1. Atrial fibrillation. 2. Acute on chronic diastolic heart failure. 3. Anasarca. 4. Acute kidney injury. 5. Hypotension. 6. Obesity. RECOMMENDATIONS: Diuretics per Nephrology given her chronic kidney disease. Continue Eliquis for CVA prophylaxis. Her heart rate is controlled. Her blood pressure is on the low side despite increase in midodrine. We will discontinue carvedilol. Continue digoxin. She will need addition of metoprolol for rate control prior to discharge. Monitor the patient closely on telemetry. Thank you for this consult. We will continue to follow. Zarina Tao MD [facility]/MODL /[id number]
[2020-01-18] VITALS (8 sets, daily range): BP systolic 101–106; BP diastolic 44–69
[2020-01-18] MEDS: FUROSEMIDE INJ 100 MG in SODIUM CHLORIDE 0.9% 100 ML 90 ML IV SCH ×4 (01:01→21:40)
[2020-01-18] MEDS: MIDODRINE 2.5 MG TAB PO SCH ×3 (05:24→21:41)
--- NOTE | 2020-01-18 06:51 | NUR ---
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 01-16 titrate midodrine up; cont diuresis; monitor renal fn 01-17 I/O 245/3925; check kidney fn; Klebsiella UTI- sen to ceftriaxone. Glenn Dunn MD, PhD.
--- NOTE | 2020-01-18 07:00 | NUR ---
ASSUMED CARE. ACYANOTIC. RESTING IN BED. NO DISTRESS NOTED. CALL LIGHT IN REACH. SIDE RAILS UP X2. BED LOW AND LOCKED.
[2020-01-18] MEDS: APIXABAN 5 MG TABLET PO SCH ×2 (09:01→16:45)
[2020-01-18] MEDS: POTASSIUM CHLORIDE 20 MEQ TAB CR PO SCH ×2 (09:02→16:45)
[2020-01-18] MEDS: FAMOTIDINE 20 MG TAB PO SCH (09:02)
[2020-01-18] MEDS: DIGOXIN 0.25 MG TAB PO SCH (09:02)
[2020-01-18] MEDS: MAGNESIUM OXIDE 400 MG TAB PO SCH ×2 (09:02→16:45)
--- NOTE | 2020-01-18 09:12 | NUR ---
Updated PT notes sent to [facility].
[2020-01-18 13:25] LABS: ANION GAP 11.8 mmol/L (8-16); CALCIUM 8.2 mg/dL (8.4-10.2); CREATININE, SERUM 1.23 mg/dL (0.57-1.11); POTASSIUM 3.8 mmol/L (3.5-5.1)
--- NOTE | 2020-01-18 13:47 | Progress Note ---
DATE: 01/18/2020 Cardiology Progress Note SUBJECTIVE: The patient denies chest pain or shortness of breath. OBJECTIVE: VITAL SIGNS: Temperature 98.1 degrees, pulse 75, respiratory rate 14, blood pressure 101/69, and oxygen saturation 96% on 2 L nasal cannula. GENERAL: Elderly woman, in no acute distress. Awake and alert. LUNGS: Clear to auscultation bilaterally. No wheezes or crackles. CARDIOVASCULAR: Normal rate. Irregularly irregular rhythm. Normal S1 and S2. ABDOMEN: Soft and nontender. EXTREMITIES: Compression wrappings present bilaterally. CARDIAC MEDICATIONS: Digoxin 0.25 mg p.o. daily, apixaban 5 mg p.o. b.i.d., midodrine 7.5 mg p.o. q.8 hours, and Lasix drip. LABORATORY DATA: None today. Telemetry was personally reviewed and interpreted, revealing atrial fibrillation. IMPRESSION: 1. Atrial fibrillation. 2. Hqala-yb-eckymdj diastolic heart failure. 3. Anasarca. 4. Acute kidney injury. 5. Hypotension. 6. Obesity. RECOMMENDATIONS: Diuretics per Nephrology given chronic kidney disease. Continue Eliquis for CVA prophylaxis. Heart rate is controlled on digoxin only due to her hypotension, requiring midodrine. Monitor the patient closely on telemetry. We will add low-dose metoprolol for rate control when she is closer to discharge. Thank you for this consult. We will continue to follow. Zarina Tao MD [facility]/MODL /[id number]
[2020-01-18] MEDS ORDERED: SODIUM CHLORIDE 0.9% 250ML 250 ML ONE (14:19)
[2020-01-18] MEDS: CEFTRIAXONE SOD 1 GM/NS 50 ML 50 ML IV SCH (14:27)
[2020-01-18] MEDS ORDERED: ACETAMINOPHEN 325 MG TAB PO PRN (17:45)
--- NOTE | 2020-01-18 18:38 | Progress Note ---
DATE: 01/18/2020 Nephrology Progress Note SUBJECTIVE: The patient is sleeping comfortably. Denies chest pain or shortness of breath earlier today per Cardiology note. OBJECTIVE: VITAL SIGNS: Blood pressure 101/69, pulse 75 per minute, afebrile. Oxygen saturation 96% on 2 L nasal cannula. LUNGS: Clear to auscultation bilaterally. No wheezing or crackles. CARDIOVASCULAR: Irregularly irregular. S1 and S2. ABDOMEN: Soft and nondistended. EXTREMITIES: Compression wrappings present bilaterally. LABORATORY DATA: Hemoglobin 8.3 and white count normal. Serum chemistries significant for stable creatinine of 1.23, BUN 21, potassium 3.8, bicarb 36, and total calcium 8.2. MEDICATIONS: Reviewed. Still on IV Lasix infusion at 5 mg an hour and midodrine 7.5 mg q.8 hours. Potassium replacement 20 mEq b.i.d. IMPRESSION: 1. Chronic kidney disease stage 3, is stable to improving. 2. Congestive heart failure exacerbation, responding very well to IV Lasix infusion. Continue same today and perhaps switch to intermittent doses by tomorrow if remains stable. 3. Anemia secondary to chronic kidney disease. Stable hemoglobin. 4. Blood pressure, supported with midodrine and is asymptomatic. Santiago Keys MD [facility]/MODL /[id number]
[2020-01-19] VITALS (8 sets, daily range): BP systolic 97–130; BP diastolic 48–81
[2020-01-19] MEDS: MIDODRINE 2.5 MG TAB PO SCH ×3 (05:35→21:41)
--- NOTE | 2020-01-19 06:43 | NUR ---
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 01-16 titrate midodrine up; cont diuresis; monitor renal fn 01-17 I/O 245/3925; check kidney fn; Klebsiella UTI- sen to ceftriaxone. 01-18 check labs; monitor BP Glenn Dunn MD, PhD.
[2020-01-19 07:43] LABS: BASOPHILS # (AUTO) 0.1 (0.0-0.1); EOSINOPHILS # (AUTO) 0.3 (0.0-0.4); EOSINOPHILS % 4.5 % (0.0-6.0); HEMATOCRIT 28.2 % (34.2-44.1); HEMOGLOBIN 8.2 g/dL (12.0-16.0); LYMPHOCYTES # (AUTO) 1.9 (1.0-3.2); LYMPHOCYTES % 25.9 % (18.0-39.1); MEAN CORPUSCULAR HGB CONC 29.1 g/dL (31-35); MEAN CORPUSCULAR VOLUME 82.7 fL (81-99); MONOCYTES # (AUTO) 1.2 (0.2-0.8); NEUTROPHILS # (AUTO) 3.7 (2.1-6.9); NEUTROPHILS % 51.3 % (38.7-80.0); PLATELET COUNT 156 x10e3/uL (140-360); RED BLOOD COUNT 3.41 x10e6/uL (3.6-5.1); RED CELL DISTRIBUTION WIDTH 17.7 % (11.7-14.4)
--- NOTE | 2020-01-19 08:00 | NUR ---
REHAB EVAL IN PROCESS WITH [facility], WILL FOLLOW UP WITH SNF IF IT IS DENIED. FOLLOWING PT CHOICE UNTIL ABLE TO PROCEED WITH NEXT STEP.
[2020-01-19 08:02] LABS: ANION GAP 11.7 mmol/L (8-16); CALCIUM 8.1 mg/dL (8.4-10.2); CREATININE, SERUM 1.2 mg/dL (0.57-1.11); POTASSIUM 3.7 mmol/L (3.5-5.1)
[2020-01-19] MEDS: POTASSIUM CHLORIDE 20 MEQ TAB CR PO SCH ×2 (08:14→15:11)
[2020-01-19] MEDS: APIXABAN 5 MG TABLET PO SCH ×2 (08:14→15:11)
[2020-01-19] MEDS: DIGOXIN 0.25 MG TAB PO SCH (08:15)
[2020-01-19] MEDS: FAMOTIDINE 20 MG TAB PO SCH (08:15)
[2020-01-19] MEDS: MAGNESIUM OXIDE 400 MG TAB PO SCH ×2 (08:15→15:11)
[2020-01-19 08:17] LABS: MAGNESIUM 1.3 MG/DL (1.3-2.1); PHOSPHORUS 2.8 MG/DL (2.3-4.7)
[2020-01-19] MEDS ORDERED: MAGNESIUM SULFATE 2GM/50ML 50 ML IV ONE (13:30)
--- NOTE | 2020-01-19 14:35 | Progress Note ---
DATE: 01/19/2020 Nephrology Followup Note SUBJECTIVE: Followed up for CKD 3 and fluid overload. Excellent response to IV Lasix infusion. No specific complaints today. OBJECTIVE: VITAL SIGNS: Blood pressure 101/70, pulse 84 per minute, and oxygen saturation 99%. Afebrile. NECK: Supple. RESPIRATORY: Bilateral air entry, no distress. No wheezing. CARDIOVASCULAR: S1, S2. ABDOMEN: Soft, nondistended. EXTREMITIES: Bilateral compression stocking for chronic edema. NEUROLOGICAL: Alert and oriented x3. LABORATORY DATA: Hemoglobin 8.4, potassium 3.7, BUN 27, and creatinine 1.2. Magnesium 1.3. IMPRESSION: 1. Chronic kidney disease stage 3, overall stable. 2. Fluid overload/anasarca, excellent response to IV Lasix infusion. We will change to intermittent IV Lasix q.12 hours. 3. Hypomagnesemia, secondary to loop diuretics. We will replace IV today. Monitor potassium level. 4. Anemia secondary to chronic kidney disease, stable. Santiago Keys MD [facility]/MODL /[id number]
[2020-01-19] MEDS: CEFTRIAXONE SOD 1 GM/NS 50 ML 50 ML IV SCH (15:26)
[2020-01-19] MEDS ORDERED: SODIUM CHLORIDE 0.9% 250ML 250 ML ONE (15:39)
--- NOTE | 2020-01-19 16:07 | NUR ---
SPOKE WITH PT ABOUT DENIAL FOR [facility] AND EDUCATED ABOUT THE NEED FOR HER TO BE ABLE TO PARTICIPATE FOR 3 HOURS A DAY, ALSO EDUCATED ABOUT LEVEL OF CARE AT THE SNF LEVEL, GAVE LIST OF FACILITIES IN NETWORK, SHE WILL DISCUSS WITH DAUGHTER AND LET ME KNOW IN MORNING HER CHOICE.
--- NOTE | 2020-01-19 17:35 | Progress Note ---
DATE: 01/19/2020 Cardiology Progress Note SUBJECTIVE: The patient denies chest pain or shortness of breath. OBJECTIVE: VITAL SIGNS: Temperature 98.5 degrees, pulse 84, respiratory rate 24, blood pressure 101/70, and oxygen saturation 99% on room air. GENERAL: Elderly woman, in no acute distress. Awake and alert. LUNGS: Clear to auscultation bilaterally. No wheezes or crackles. CARDIOVASCULAR: Normal rate. Irregularly irregular rhythm. Normal S1 and S2. ABDOMEN: Soft and nontender. EXTREMITIES: Compression wrappings present bilaterally. CARDIAC MEDICATIONS: Midodrine 7.5 mg p.o. q.8 hours, apixaban 5 mg p.o. b.i.d., and digoxin 0.25 mg p.o. daily. LABORATORY DATA: WBC 7.13, hemoglobin 8.2, hematocrit 28.2, and platelets 156. Sodium 140, potassium 3.7, chloride 95, CO2 39, BUN 27, and creatinine 1.2. Telemetry was personally reviewed and interpreted, revealing atrial fibrillation. IMPRESSION: 1. Atrial fibrillation. 2. Iucmg-ge-nvqrojy diastolic heart failure. 3. Anasarca. 4. Acute kidney injury. 5. Hypotension. 6. Obesity. RECOMMENDATIONS: Diuretics per Nephrology given chronic kidney disease. Continue Eliquis for CVA prophylaxis. Heart rate control on digoxin only due to her hypotension requiring management, however, given her age and renal disease, we will check digoxin level. We may need to reduce the dose. Monitor the patient closely on telemetry. We will add attempt at low-dose metoprolol as well. Thank you for this consult. We will continue to follow. Zarina Tao MD [facility]/MODL /[id number]
[2020-01-20] VITALS (8 sets, daily range): BP systolic 92–126; BP diastolic 56–79
--- NOTE | 2020-01-20 04:58 | NUR ---
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 01-16 titrate midodrine up; cont diuresis; monitor renal fn 01-17 I/O 245/3925; check kidney fn; Klebsiella UTI- sen to ceftriaxone. 01-18 check labs; monitor BP 01-19 I/O 1060/4000; being diuresed; Too weak to go home- severe physical deconditioning- await SNF placement; [facility]- present on admission; Glenn Dunn MD, PhD.
[2020-01-20] MEDS: MIDODRINE 2.5 MG TAB PO SCH ×3 (06:00→21:33)
[2020-01-20 07:00] LABS: MAGNESIUM 1.5 MG/DL (1.3-2.1); PHOSPHORUS 2.8 MG/DL (2.3-4.7)
[2020-01-20 07:24] LABS: ANION GAP 14.1 mmol/L (8-16); CALCIUM 8.4 mg/dL (8.4-10.2); CREATININE, SERUM 1.14 mg/dL (0.57-1.11); POTASSIUM 4.1 mmol/L (3.5-5.1)
--- NOTE | 2020-01-20 08:59 | NUR ---
CALLED AND SPOKE WITH DAUGHTER CHIDI ABOUT SNF, SHE ASKED QUESTIONS ABOUT THE ONES ON THE LIST, SHE WANTS TO SPEAK WITH HER SISTER AND WILL CALL BACK WITH CHOICE.
[2020-01-20] MEDS: APIXABAN 5 MG TABLET PO SCH ×2 (09:53→17:02)
[2020-01-20] MEDS: MAGNESIUM OXIDE 400 MG TAB PO SCH ×2 (09:54→17:01)
[2020-01-20] MEDS: DIGOXIN 0.25 MG TAB PO SCH (09:54)
[2020-01-20] MEDS: FAMOTIDINE 20 MG TAB PO SCH (09:54)
[2020-01-20] MEDS: POTASSIUM CHLORIDE 20 MEQ TAB CR PO SCH ×2 (09:54→17:02)
--- NOTE | 2020-01-20 11:20 | Progress Note ---
DATE: 01/20/2020 Cardiology Progress Note SUBJECTIVE: The patient denies chest pain or shortness of breath. OBJECTIVE: VITAL SIGNS: Temperature 98.9 degrees, pulse 73 respiratory rate 17, blood pressure 98/67, and oxygen saturation 94% on 2 L nasal cannula. GENERAL: Elderly woman, in no acute distress. Awake and alert. LUNGS: Clear to auscultation bilaterally. No wheezes or crackles. CARDIOVASCULAR: Normal rate. Irregularly irregular rhythm. Normal S1 and S2. ABDOMEN: Soft and nontender. EXTREMITIES: Compression wrappings present bilaterally. CARDIAC MEDICATIONS: Digoxin 0.25 mg p.o. daily, apixaban 5 mg p.o. b.i.d., midodrine 7.5 mg p.o. q. 8 hours. LABORATORY DATA: WBC 7.13, hemoglobin 8.2, hematocrit 28.2, platelets 156. Sodium 142, potassium 4.1, chloride 93, CO2 of 39, BUN 26, creatinine 1.14. TELEMETRY: Personally reviewed and interpreted, revealing atrial fibrillation. IMPRESSION: 1. Atrial fibrillation. 2. Udjnb-ac-fbkygns diastolic heart failure. 3. Anasarca. 4. Acute kidney injury. 5. Hypotension. 6. Obesity. RECOMMENDATIONS: Diuretics per Nephrology given chronic kidney disease. Continue Eliquis for CVA prophylaxis. The patient is unable to tolerate beta-blockers or calcium channel blockers due to hypotension requiring midodrine. She is on digoxin alone. Digoxin level was checked given her chronic kidney disease and was within range. However, given her age, we may need to decrease dosing. We will monitor closely. Thank you for this consult. We will continue to follow. Zarina Tao MD [facility]/MODL /[id number]
[2020-01-20] MEDS ORDERED: MAGNESIUM SULFATE 2GM/50ML 50 ML IV ONE (12:30)
--- NOTE | 2020-01-20 12:50 | NUR ---
SPOKE WITH DAUGHTER MAT SMITH SHE STATES CHOICE IS FOR [facility] [place]. EDUCATED ABOUT IMM FILED IN CHART. COMPLETE PASRR AND RTF AND PUT WITH PACKET AT [facility]URSES STATION AND FAXING CLINICALS TO FACILITY.
[2020-01-20] MEDS: CEFTRIAXONE SOD 1 GM/NS 50 ML 50 ML IV SCH (13:30)
--- NOTE | 2020-01-20 14:16 | Progress Note ---
DATE: 01/20/2020 Nephrology Progress Note SUBJECTIVE: Followup for chronic kidney disease stage 3 and anasarca. Excellent response to IV Lasix infusion. The patient admits to some generalized weakness today. PHYSICAL EXAMINATION: VITAL SIGNS: Blood pressure 95/63, pulse 77 per minute, afebrile. Pulse oximetry 95% on room air. NECK: Supple, no masses. RESPIRATORY: Bilateral air entry. No wheezing or distress. CARDIOVASCULAR: S1, S2. ABDOMEN: Soft, depressible, nontender. EXTREMITIES: Both lower extremities are under Rajiv wraps for chronic edema. LABORATORY DATA: Hemoglobin 8.2 yesterday. Creatinine today 1.14, BUN 26. Electrolytes stable. Bicarb up to 39, calcium 8.4, and magnesium 1.5. IMPRESSION: 1. Chronic kidney disease stage 3, remains stable. 2. Fluid overload/anasarca, excellent response to IV Lasix infusion. Now back on p.o. Lasix b.i.d. Monitor. 3. Anemia secondary to chronic kidney disease. Stable hemoglobin. 4. Hypomagnesemia, we will replace IV 2 g magnesium sulfate. Santiago Keys MD [facility]/MODL /[id number]
--- NOTE | 2020-01-20 16:20 | NUR ---
Nutrition Screen Note RD Recommendation for Physician: -Continue cardiac diet Plan of Care: RD following, monitoring for tolerance and adequacy Nutrition reason for involvement: follow up Primary Diagnose(s): CHF, chronic afib, dyspnea, pulmonary edema 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, UTI, cholecystectomy, gastric bypass Ht: 64 in Wt: 331 lbs (01/19) 330lb (01/11) BMI: 56.80 kg/m2 IBW:[address] Assessment: 01/19: Follow up. Chart reviewed. Pt is awaiting placement. Pt's weight has remained stable and is consuming 50-100% of meals per chart. Will continue to monitor. (01/13/20) Chart reviewed. Labs and meds reviewed. Pt is a 79 year old female admitted with CHF, chronic afib, dyspnea, and pulmonary edema. Pt reports eating most of her meals. No weight loss reported and pt stated she usually weighs 330 lbs. No N/V/D/C or chewing/swallowing issues. Pt declined the need for diet education. Will continue to monitor. Current Diet: cardiac Malnutrition Evaluation (01/13/20) The patient does not meet criteria for a specified degree of malnutrition at this time. Will re-evaluate at follow-up as appropriate. Diet Education Needs Assessment: (01/12) pt declined the need for diet education Nutrition Care Level: low pt is eating well Signed: Miranda Fuller, RD, LD
--- NOTE | 2020-01-20 19:06 | NUR ---
report given to oncoming nurse ,walking rounds complete.
[2020-01-21] VITALS (8 sets, daily range): BP systolic 112–129; BP diastolic 57–94
--- NOTE | 2020-01-21 02:54 | NUR ---
Spoke with Dr. Dunn regarding Pt's left arm swelling, redness, and pain. Dr. Dunn ordered Tramadol, PICC removal, and Doppler to r/o DVT. Pt c/o 5/10 left arm pain. VSS. No acute distress noted.
[2020-01-21] MEDS: TRAMADOL HCL 50 MG TAB PO PRN ×2 (04:01→22:31)
--- NOTE | 2020-01-21 04:39 | NUR ---
Informed Dr. Dunn Doppler negative, remove PICC and replace with peripheral IV.
--- NOTE | 2020-01-21 04:46 | NUR ---
IM- progress note O/N see below ROS no f/c/s/n/V/D/NUNEZ/dizziness/cp/vision changes/skin rash/confusion v/s; revd PE tired appearing anicteric ns1s2 REDUED BREATH SOUNDS; MILDLY COARSE; soft nt nd B/L LEG EDEMA WITH ANTON BANDAGE IN PLACE skin dry flat affect a&ox3; labs/meds revd A/P: Pulmonary edema- diurese; check echo Peripheral edema- diuese Cardiomegaly- cont BP Hypertensive heart ds- control BP wiht meds CKD3 due to HTN- near baseline PreDM- check hab1c/lipids Severe obesity- check hab1c/lipids; step down nurse consult BMI 56- as above PAF- HR controlled; Apixaban Prop: pepcid on AC Dispo: f/u 01-13 I/O 1612/5700; cont lasix gtt; monitor renal fn; f/u labs; f/u echo; cardio eval 01-14 A.fib with RVR- cont treatment and diuresis; 01-15 I/O 2068/4100; Hypotension- monitor on diuresis; UTI- start ceftriaxone. 01-16 titrate midodrine up; cont diuresis; monitor renal fn 01-17 I/O 245/3925; check kidney fn; Klebsiella UTI- sen to ceftriaxone. 01-18 check labs; monitor BP 01-19 I/O 1060/4000; being diuresed; Too weak to go home- severe physical deconditioning- await SNF placement; [facility]/AMS- present on admission; 01-20 I/O 120/1050; remove PICC due to worsening edema of arm- U/S negative for DVT. to SNF when approved; Glenn Dunn MD, PhD.
--- NOTE | 2020-01-21 05:00 | NUR ---
Dr. Shaun pablo, ordered to wrap left arm with barrie bandage.
[2020-01-21] MEDS: MIDODRINE 2.5 MG TAB PO SCH ×3 (06:00→22:00)
--- NOTE | 2020-01-21 06:44 | NUR ---
RECEIVED BEDSIDE SHIFT REPORT FROM OFF GOING NURSE. PATIENT IS RESTING IN BED. NO ACUTE DISTRESS NOTED. CALL LIGHT WITHIN REACH. BED IN THE LOWEST POSITION.
[2020-01-21] MEDS: DIGOXIN 0.25 MG TAB PO SCH (09:50)
[2020-01-21] MEDS: MAGNESIUM OXIDE 400 MG TAB PO SCH ×2 (09:50→17:14)
[2020-01-21] MEDS: APIXABAN 5 MG TABLET PO SCH ×2 (09:50→17:13)
[2020-01-21] MEDS: FAMOTIDINE 20 MG TAB PO SCH (09:50)
[2020-01-21] MEDS: POTASSIUM CHLORIDE 20 MEQ TAB CR PO SCH ×2 (09:50→17:14)
--- NOTE | 2020-01-21 11:25 | Progress Note ---
DATE: 01/21/2020 Cardiology Progress note SUBJECTIVE: The patient denies chest pain or shortness of breath. OBJECTIVE: VITAL SIGNS: Temperature 98.5 degrees, pulse 87, respiratory rate 16, blood pressure 119/57, and oxygen saturation 94% on nasal cannula. GENERAL: An elderly woman, in no acute distress. Awake and alert. LUNGS: Clear to auscultation bilaterally. No wheezes or crackles. CARDIOVASCULAR: Normal rate, irregularly irregular. Normal S1, S2. ABDOMEN: Soft, nontender. EXTREMITIES: Compression wrappings present in bilateral lower extremities. CARDIAC MEDICATIONS: 1. Digoxin 0.25 mg p.o. daily. 2. Apixaban 5 mg p.o. b.i.d. 3. Midodrine 7.5 mg p.o. q.8 hours. LABORATORY DATA: None today. TELEMETRY: Telemetry was personally reviewed and interpreted revealing atrial fibrillation. IMPRESSION: 1. Atrial fibrillation. 2. Acute on chronic diastolic heart failure. 3. Anasarca. 4. Acute kidney injury. 5. Hypotension. 6. Obesity. RECOMMENDATIONS: Diuretics per Nephrology given chronic kidney disease. Continue Eliquis for CVA prophylaxis. The patient is unable to tolerate beta blockade or calcium channel blockade due to hypotension requiring midodrine. She is on digoxin alone. Digoxin level was checked given her chronic kidney disease and was within range. This will need to be closely monitored given her age. Thank you for this consult. We will continue to follow. Zarina Tao MD [facility]/MODL /[id number]
--- NOTE | 2020-01-21 13:38 | NUR ---
PER FACILITY, THERE IS AN OPEN CASE THROUGH [employer] INS[employer]ANCE THAT PER THE INSURANCE HAS BEEN ARCHIVED BUT SHOULD HAVE BEEN CLOSED A FEW YEARS BACK, WILL TAKE SOME TIME TO PULL AND CLOSE PER INSURANCE COMPANY. FACILITY IS WORKING WITH FAMILY TO GET COMPLETED AND PENDING AUTH UNTIL THIS IS RESOLVED. LET AND ANTHONY KNOW ABOUT UPDATE.
--- NOTE | 2020-01-21 13:55 | NUR ---
WOUND CARE FOLLOW UP CONSULTATION. NURSING REQUESTED CONSULTATION IN REGARDS ULCER TO BILATERAL BUTTOCKS AND SACRUM. UPON ASSESSMENT PT PRESENTS WITH A 5X1CM DTI TO SACRAL CREASE; 5X5X0.1CM DTI, LEFT BUTTOCK, 4X5X0.1CM, RIGHT BUTTOCK, WELL WITH A 1.5X1.5CM DTI TO LEFT ISCHIUM. BILATERAL LOWER LEGS WITH INTACT UNNA BOOTS. 4+ PITTING EDEMA TO LEFT UPPER EXT. THERE ARE NO OTHER AREAS OF CONCERN AT THIS TIME. PT EDUCATED PT ON PLAN OF CARE, DRESSING CHANGES, AND PRESSURE RELIEF TO THE AFFECTED AREAS. STATES UNDERSTANDING. RECOMMENDATIONS: CONTINUE WITH UNNA BOOT TO BILATERAL LOWER EXTREMITIES MWF PREVIOUSLY ORDERED. APPLY VENELEX TO BILATERAL BUTTOCKS, SACRAL CREASE AND LEFT ISCHIUM BID AND COVER WITH ALLEVYN FOAM REPOSITION PT EVERY TWO HOURS AND PRN. PROVIDE PILLOW SUSPENSIONS AND HEEL PROTECTORS WHILE IN BED. PLACE PT ON ALTERNATING LOW AIR LOSS MATTRESS. THANKS FOR THIS CONSULTATION. Addendum: 01/21/20 at 1408 by Estella Ayala RN Amended: Links added.
--- NOTE | 2020-01-21 16:01 | Progress Note ---
DATE: 01/21/2020 Nephrology Progress Note SUBJECTIVE: The patient is sleeping comfortably. She is followed up for fluid overload and anasarca and congestive heart failure. OBJECTIVE: VITAL SIGNS: Stable. Intake and output in the last 24 hours is 870 in and 1050 out on oral Lasix. Blood pressure 112/59. She is afebrile. NECK: Supple. Unable to look for JVP because she is sleeping. RESPIRATORY: Symmetrical air entry without distress. I do not hear any wheezing. CARDIOVASCULAR: Irregularly irregular heart rate. S1, S2. ABDOMEN: Soft, nondistended. EXTREMITIES: Bilateral lower extremity Rajiv wraps for chronic edema. LABORATORY DATA: Hemoglobin 8.2, normal white count and platelets. No labs checked since yesterday. IMPRESSION: 1. Mild acute kidney injury, resolving. 2. Chronic kidney disease, stage 2. 3. Fluid overload/anasarca, excellent response to IV Lasix infusion. However, we will need to observe until tomorrow on oral Lasix before discharge home. 4. Anemia, multifactorial. Santiago Keys MD [facility]/MODL /[id number]
[2020-01-21] MEDS ORDERED: BALSAM PERU/CASTOR OIL 60 GM OINT...G. TP SCH (17:00)
[2020-01-21] MEDS: BALSAM PERU/CASTOR OIL 60 GM OINT...G. TP SCH (18:30)
--- NOTE | 2020-01-21 19:04 | NUR ---
BEDSIDE SHIFT REPORT GIVEN TO ONCOMING NURSE. PATIENT IS RESTING IN BED, NO ACUTE DISTRESS NOTED. CALL LIGHT WITHIN REACH. BED IN THE LOWEST POSITION.
--- NOTE | 2020-01-21 19:05 | NUR ---
Bedside rounds completed with morning nurse. Pt alert and oriented, lying in bed, HOB 60 degrees, denies pain at this time. Call light within reach. Bed alarm on.
[2020-01-22] VITALS (9 sets, daily range): BP systolic 107–130; BP diastolic 45–87
[2020-01-22] MEDS: MIDODRINE 2.5 MG TAB PO SCH ×3 (06:00→22:44)
--- NOTE | 2020-01-22 06:27 | NUR ---
IM- progress note O/N see below ROS no f/c/s/n/V/D/NUNEZ/dizziness/cp/vision changes/skin rash/confusion v/s; revd PE tired appearing anicteric ns1s2 REDUED BREATH SOUNDS; MILDLY COARSE; soft nt nd B/L LEG EDEMA WITH ANTON BANDAGE IN PLACE skin dry flat affect a&ox3; labs/meds revd A/P: Pulmonary edema- diurese; check echo Peripheral edema- diuese Cardiomegaly- cont BP Hypertensive heart ds- control BP wiht meds CKD3 due to HTN- near baseline PreDM- check hab1c/lipids Severe obesity- check hab1c/lipids; registration scheduling specialist consult BMI 56- as above PAF- HR controlled; Apixaban Prop: pepcid on AC Dispo: f/u 01-13 I/O 1612/5700; cont lasix gtt; monitor renal fn; f/u labs; f/u echo; cardio eval 01-14 A.fib with RVR- cont treatment and diuresis; 01-15 I/O 2068/4100; Hypotension- monitor on diuresis; UTI- start ceftriaxone. 01-16 titrate midodrine up; cont diuresis; monitor renal fn 01-17 I/O 245/3925; check kidney fn; Klebsiella UTI- sen to ceftriaxone. 01-18 check labs; monitor BP 01-19 I/O 1060/4000; being diuresed; Too weak to go home- severe physical deconditioning- await SNF placement; [facility]/AMS- present on admission; 01-20 I/O 120/1050; remove PICC due to worsening edema of arm- U/S negative for DVT. to SNF when approved; 01-21 cont care. I/O 480/950 Glenn Dunn MD, PhD.
--- NOTE | 2020-01-22 07:36 | NUR ---
received pt from previous shift, pt sleeping in bed
[2020-01-22] MEDS: DIGOXIN 0.25 MG TAB PO SCH (09:17)
[2020-01-22] MEDS: POTASSIUM CHLORIDE 20 MEQ TAB CR PO SCH ×2 (09:17→18:33)
[2020-01-22] MEDS: APIXABAN 5 MG TABLET PO SCH ×2 (09:17→18:33)
[2020-01-22] MEDS: FAMOTIDINE 20 MG TAB PO SCH (09:18)
[2020-01-22] MEDS: MAGNESIUM OXIDE 400 MG TAB PO SCH ×2 (09:18→18:33)
--- NOTE | 2020-01-22 11:30 | NUR ---
wound dresssing changed to sacral area
[2020-01-22] MEDS: BALSAM PERU/CASTOR OIL 60 GM OINT...G. TP SCH ×2 (11:37→22:40)
[2020-01-22 17:10] LABS: CALCIUM 9.3 mg/dL (8.4-10.2); CREATININE, SERUM 1.04 mg/dL (0.57-1.11)
--- NOTE | 2020-01-22 17:16 | Progress Note ---
DATE: 01/22/2020 Nephrology Followup Note SUBJECTIVE: Followed up for fluid overload and anasarca. Chronic kidney disease, stage 3. The patient appears comfortable. Denies any shortness of breath or nausea. OBJECTIVE: VITAL SIGNS: Stable. Blood pressure 107/52, pulse 77 per minute, and respirations 20 per minute. She is afebrile. Oxygen saturation 97% on room air. SKIN: Normal turgor. NECK: Supple without jugular venous distention. RESPIRATION: Bilateral air entry without wheezing. No distress. CARDIOVASCULAR: Irregularly irregular. S1 and S2. ABDOMEN: Soft and nondistended. EXTREMITIES: Bilateral Rajiv wrap dressings on. No significant pitting edema. LABORATORY DATA: BMP pending from today. IMPRESSION: 1. Fluid overload, anasarca, and congestive heart failure. Resolved with IV Lasix infusion. Now on p.o. Lasix b.i.d. 2. Chronic kidney disease, stage 3, stable. 3. Anemia, multifactorial. 4. Hypotension, managed with midodrine. RECOMMENDATIONS: 1. Follow up on BMP today. 2. Continue Lasix b.i.d. by mouth. 3. Avoid all known nephrotoxins. Santiago Keys MD [facility]/MODL /[id number]
[2020-01-22] MEDS: TRAMADOL HCL 50 MG TAB PO PRN (22:44)
[2020-01-23] VITALS (12 sets, daily range): BP systolic 100–116; BP diastolic 52–82
[2020-01-23] MEDS: MIDODRINE 2.5 MG TAB PO SCH ×3 (05:16→21:00)
--- NOTE | 2020-01-23 06:13 | Progress Note ---
DATE: 01/22/2020 Cardiology Progress Note. SUBJECTIVE: The patient endorses some shortness of breath and continued edema. Denies any chest pain. Awaiting placement. OBJECTIVE: VITAL SIGNS: Temperature 98.3, pulse 75, respiratory rate 20, blood pressure 108/45, oxygen saturation 95% on 2 L nasal cannula. GENERAL: Alert and oriented x3. Resting comfortably in the bed. Does not appear to be in any acute distress. NECK: Supple. No JVD noted. LUNGS: Clear to auscultation. Upper lobes, lower lobes diminished breath sounds. No wheezing. No rhonchi or crackles. CARDIOVASCULAR: Irregular rate and rhythm. Normal S1, S2. No murmurs, no gallops. ABDOMEN: Rounded, soft, nontender. EXTREMITIES: Lower and upper extremity; 3+ pitting edema. CARDIOVASCULAR MEDICATIONS: 1. Digoxin 0.125 mg p.o. daily. 2. Apixaban 5 mg p.o. b.i.d. 3. Midodrine 7.5 mg p.o. q.8 hours. LABORATORY DATA: No new labs today. Telemetry, I have personally reviewed telemetry and it looks like rate controlled atrial fibrillation. IMPRESSION: 1. Atrial fibrillation. 2. Acute on chronic diastolic heart failure. 3. Anasarca. 4. Acute kidney injury. 5. Hypotension. 6. Morbid obesity. RECOMMENDATION: Diuretics per Nephrology given kidney disease. Continue Eliquis for CVA prophylaxis. The patient is unable to tolerate beta-lila or calcium channel lila at this point due to hypotension requiring midodrine. She is on digoxin alone. Continue monitoring digoxin level giving kidney disease. We will continue to monitor this patient closely. Dictated by Remigio Spicer MD [facility]/NICK /[id number]
--- NOTE | 2020-01-23 07:07 | NUR ---
SBAR REPORT RECEIVED AT BEDSIDE, PATIENT AWAKE ALERT, ONCOMING SHIFT RN UPDATED WITH PLAN OF CARE AND POSSIBLE DISCHARGE 01/25/20 SNF PLACEMENT, CALL LIGHT WITHIN REACH
--- NOTE | 2020-01-23 07:15 | NUR ---
ASSUMED CARE. AWAKE AND ALERT. ACYANOTIC. RESTING IN BED. NO DISTRESS NOTED. CALL LIGHT IN REACH. SIDE RAILS UP X2. BED LOW AND LOCKED.
--- NOTE | 2020-01-23 07:21 | NUR ---
IM- progress note O/N see below ROS no f/c/s/n/V/D/NUNEZ/dizziness/cp/vision changes/skin rash/confusion v/s; revd PE tired appearing anicteric ns1s2 REDUED BREATH SOUNDS; MILDLY COARSE; soft nt nd B/L LEG EDEMA WITH ANTON BANDAGE IN PLACE skin dry flat affect a&ox3; labs/meds revd A/P: Pulmonary edema- diurese; check echo Peripheral edema- diuese Cardiomegaly- cont BP Hypertensive heart ds- control BP wiht meds CKD3 due to HTN- near baseline PreDM- check hab1c/lipids Severe obesity- check hab1c/lipids; upstairs maid consult BMI 56- as above PAF- HR controlled; Apixaban Prop: pepcid on AC Dispo: f/u 01-13 I/O 1612/5700; cont lasix gtt; monitor renal fn; f/u labs; f/u echo; cardio eval 01-14 A.fib with RVR- cont treatment and diuresis; 01-15 I/O 2068/4100; Hypotension- monitor on diuresis; UTI- start ceftriaxone. 01-16 titrate midodrine up; cont diuresis; monitor renal fn 01-17 I/O 245/3925; check kidney fn; Klebsiella UTI- sen to ceftriaxone. 01-18 check labs; monitor BP 01-19 I/O 1060/4000; being diuresed; Too weak to go home- severe physical deconditioning- await SNF placement; [facility]/AMS- present on admission; 01-20 I/O 120/1050; remove PICC due to worsening edema of arm- U/S negative for DVT. to SNF when approved; 01-21 cont care. I/O 480/950 01-22 renal fn stable; cont care; Glenn Dunn MD, PhD.
[2020-01-23] MEDS: FAMOTIDINE 20 MG TAB PO SCH (10:00)
[2020-01-23] MEDS: DIGOXIN 0.25 MG TAB PO SCH (10:00)
[2020-01-23] MEDS: APIXABAN 5 MG TABLET PO SCH ×2 (10:00→16:00)
[2020-01-23] MEDS: POTASSIUM CHLORIDE 20 MEQ TAB CR PO SCH ×2 (10:00→16:00)
[2020-01-23] MEDS: BALSAM PERU/CASTOR OIL 60 GM OINT...G. TP SCH ×2 (10:00→19:13)
[2020-01-23] MEDS: MAGNESIUM OXIDE 400 MG TAB PO SCH ×2 (10:00→16:00)
--- NOTE | 2020-01-23 12:19 | Progress Note ---
DATE: Cardiology Progress Note SUBJECTIVE: The patient is without any new complaints from overnight, however, does report some shortness of breath and fatigue and weakness. Denies any chest pain. OBJECTIVE: VITAL SIGNS: Temperature 98.0, pulse 75, respiratory rate 20, blood pressure 108/52, oxygen saturation 97% on 2 L nasal cannula. GENERAL: Alert and oriented x3. Resting comfortably in bed, does not appear to be in any acute distress. NECK: Supple. No JVD noted. LUNGS: Lower lobes diminished breath sounds. Upper lobe clear to auscultation. No wheezing. No rhonchi or crackles. CARDIOVASCULAR: Irregular rate and rhythm. Normal S1, S2. No murmurs, no gallops. ABDOMEN: Soft, nontender. EXTREMITIES: Lower and upper extremity 3+ pitting edema. CARDIOVASCULAR MEDICATIONS: Digoxin 0.125 mg p.o. daily, magnesium oxide 400 mg p.o. b.i.d., potassium chloride 20 mEq p.o. b.i.d., apixaban 5 mg p.o. b.i.d., midodrine 7.5 mg p.o. q.8 hours. LABORATORY DATA: No new labs today. TELEMETRY: I have personally reviewed telemetry, which reflects rate controlled atrial fibrillation. IMPRESSION: 1. Atrial fibrillation. 2. Acute on chronic diastolic heart failure. 3. Anasarca. 4. Acute kidney injury. 5. Hypotension. 6. Morbid obesity. RECOMMENDATIONS: Diuretics per Nephrology given kidney disease. Continue CVA prophylaxis with Eliquis. The patient is unable to tolerate beta-lila or calcium channel blockers at this time due to hypotension. Continue digoxin and monitor digoxin levels given kidney disease. We will continue to follow this patient very closely. Dictated by Tiara Horton NP MD JACI Singh/NICK /[id number]
--- NOTE | 2020-01-23 13:59 | Progress Note ---
DATE: 01/23/2020 Nephrology Follow up Note. SUBJECTIVE: Followed up for chronic kidney disease stage 3, admitted with fluid overload and anasarca. Chest x-ray on admission showed only mild if any pulmonary edema. Responded very well to IV Lasix infusion. Now on p.o. Lasix. OBJECTIVE: GENERAL: The patient is presently sleeping comfortably. VITAL SIGNS: Stable. Blood pressure 108/52, pulse 75 per minute. She is afebrile. Pulse oximetry 97% on room air. NECK: Without JVP. Supple. RESPIRATIONS: Bilateral air entry, without wheezing. No distress. CARDIOVASCULAR: Irregularly regular S1, S2. ABDOMEN: Soft, nondistended. EXTREMITIES: Chronic leg edema under ANTON wraps, much improved since admission. LABORATORY DATA: Hemoglobin 8.2 on the 18 of January. Serum chemistry yesterday showed stable creatinine 1.04, BUN 24. Electrolytes acceptable, with elevated bicarb of 37 from IV diuresis. Total calcium 9.3. IMPRESSION AND PLAN: 1. Chronic kidney disease stage 3, current renal function is at baseline. 2. Fluid overload/anasarca, status post aggressive diuresis with IV Lasix infusion, now on Lasix 40 b.i.d. We will monitor clinically and urine output to arrive at the optimum dose for discharge back home. 3. Anemia secondary to chronic kidney disease. 4. Chronic low blood pressure, requiring midodrine, the patient is stable clinically on this blood pressure. 5. Hypokalemia, on replacement b.i.d. Monitor. Santiago Keys MD [facility]/MODL /[id number]
[2020-01-23] MEDS: TRAMADOL HCL 50 MG TAB PO PRN (19:37)
[2020-01-24] VITALS (10 sets, daily range): BP systolic 98–135; BP diastolic 48–64
[2020-01-24] MEDS: MIDODRINE 2.5 MG TAB PO SCH ×3 (04:40→21:38)
[2020-01-24] MEDS: MAGNESIUM OXIDE 400 MG TAB PO SCH ×2 (09:01→17:58)
[2020-01-24] MEDS: APIXABAN 5 MG TABLET PO SCH ×2 (09:01→17:58)
[2020-01-24] MEDS: FAMOTIDINE 20 MG TAB PO SCH (09:02)
[2020-01-24] MEDS: BALSAM PERU/CASTOR OIL 60 GM OINT...G. TP SCH ×2 (09:02→22:14)
[2020-01-24] MEDS: DIGOXIN 0.25 MG TAB PO SCH (09:03)
--- NOTE | 2020-01-24 13:34 | Progress Note ---
DATE: 01/24/2020 Renal Progress Note SUBJECTIVE: The patient is followed for acute kidney injury on chronic kidney disease, stage 3. Stable kidney function. The patient has followed for anasarca. Largely, edema has improved. However, the patient's edema has not been entirely disappeared. The patient currently has been taken off the IV Lasix drip since she is getting volume contracted. Potassium is slightly high today. We will discontinue the potassium today. No nausea. No vomiting. No shortness of breath. OBJECTIVE: VITAL SIGNS: Have been noted and are stable. LUNGS: Have rales at the bases bilaterally. CARDIOVASCULAR: S1 and S2. No rub. ABDOMEN: Soft. Positive bowel sounds. EXTREMITIES: 2+ edema of the lower extremities. No clubbing. No cyanosis. LABORATORY DATA: Have been reviewed. Potassium is now up to 5. IMPRESSION: 1. Chronic kidney disease stage 3, stable. Continue to monitor. 2. Hypertension, controlled. 3. Anasarca, off Lasix drip. May resume oral Lasix in the next 24 to 48 hours. For now, we will discontinue the potassium, as the potassium is trending upwards and the patient is no longer getting any diuretics. Omid Vela MD [facility]/MODL /[id number]
--- NOTE | 2020-01-24 14:09 | NUR ---
IM- progress note O/N see below ROS no f/c/s/n/V/D/NUNEZ/dizziness/cp/vision changes/skin rash/confusion v/s; revd PE tired appearing anicteric ns1s2 AERATION IMPROVED; MODERATE BREATH SOUNDS; soft nt nd LESS B/L LEG EDEMA; ANTON BANDAGE IN PLACE; LESS ARM EDEMA skin dry flat affect a&ox3; labs/meds revd A/P: Pulmonary edema- diurese; check echo Peripheral edema- diuese Cardiomegaly- cont BP Hypertensive heart ds- control BP wiht meds CKD3 due to HTN- near baseline PreDM- check hab1c/lipids Severe obesity- check hab1c/lipids; compliance review officer consult BMI 56- as above PAF- HR controlled; Apixaban Prop: pepcid on AC Dispo: f/u 01-13 I/O 1612/5700; cont lasix gtt; monitor renal fn; f/u labs; f/u echo; cardio eval 01-14 A.fib with RVR- cont treatment and diuresis; 01-15 I/O 2068/4100; Hypotension- monitor on diuresis; UTI- start ceftriaxone. 01-16 titrate midodrine up; cont diuresis; monitor renal fn 01-17 I/O 245/3925; check kidney fn; Klebsiella UTI- sen to ceftriaxone. 01-18 check labs; monitor BP 01-19 I/O 1060/4000; being diuresed; Too weak to go home- severe physical deconditioning- await SNF placement; [facility]/AMS- present on admission; 01-20 I/O 120/1050; remove PICC due to worsening edema of arm- U/S negative for DVT. to SNF when approved; 01-21 cont care. I/O 480/950 01-22 renal fn stable; cont care; 01-23 d/c planning; consider home PT. Unable to reach son- will tray again tomorrow; Glenn Dunn MD, PhD.
--- NOTE | 2020-01-24 16:10 | NUR ---
CALL RECEIVED FROM CECIL Landaverde [facility]. STATES SHE HAD SPOKEN W REP FROM [employer]. STATES THEY REFUSED TO CLOSE THE CASE AND WOULD ONLY SPEAK W THE MEMBER. STATES THEY WILL BE MAILING OUT A REQUEST TO CLOSE THE PENDING CASE. INFORMED HER DR. ABARCA HAD DOCUMENTED THE PT OK TO CT HOME. WILL F/U IN THE AM.
--- NOTE | 2020-01-24 19:00 | NUR ---
RECEIVED PATIENT IN BEDSIDE SHIFT REPORT. PATIENT RESTING IN BED AT THIS TIME. NO PAIN REPORTED. NO S&S OF DISTRESS NOTED. BED LOCKED IN LOWEST POSITION, SIDE RAILS UPX2, CALL LIGHT IN REACH.
--- NOTE | 2020-01-24 22:00 | NUR ---
PATIENT REFUSING Q2 TURNS AT THIS TIME. WILL CONTINUE TO ENCOURAGE MOVEMENT IN BED.
[2020-01-25] VITALS: BP 97/60
[2020-01-25 04:00] VITALS: BP 110/45
[2020-01-25] MEDS: MIDODRINE 2.5 MG TAB PO SCH ×2 (06:12→16:16)
--- NOTE | 2020-01-25 06:26 | NUR ---
IM- progress note O/N see below ROS no f/c/s/n/V/D/NUNEZ/dizziness/cp/vision changes/skin rash/confusion v/s; revd PE tired appearing anicteric ns1s2 AERATION IMPROVED; MODERATE BREATH SOUNDS; soft nt nd LESS B/L LEG EDEMA; ANTON BANDAGE IN PLACE; LESS ARM EDEMA skin dry flat affect a&ox3; labs/meds revd A/P: Pulmonary edema- diurese; check echo Peripheral edema- diuese Cardiomegaly- cont BP Hypertensive heart ds- control BP wiht meds CKD3 due to HTN- near baseline PreDM- check hab1c/lipids Severe obesity- check hab1c/lipids; vehicle monitor technician consult BMI 56- as above PAF- HR controlled; Apixaban Prop: pepcid on AC Dispo: f/u 01-13 I/O 1612/5700; cont lasix gtt; monitor renal fn; f/u labs; f/u echo; cardio eval 01-14 A.fib with RVR- cont treatment and diuresis; 01-15 I/O 2068/4100; Hypotension- monitor on diuresis; UTI- start ceftriaxone. 01-16 titrate midodrine up; cont diuresis; monitor renal fn 01-17 I/O 245/3925; check kidney fn; Klebsiella UTI- sen to ceftriaxone. 01-18 check labs; monitor BP 01-19 I/O 1060/4000; being diuresed; Too weak to go home- severe physical deconditioning- await SNF placement; [facility]/AMS- present on admission; 01-20 I/O 120/1050; remove PICC due to worsening edema of arm- U/S negative for DVT. to SNF when approved; 01-21 cont care. I/O 480/950 01-22 renal fn stable; cont care; 01-23 d/c planning; consider home PT. Unable to reach son- will tray again tomorrow; 01-24 check labs; D/w daughter Carisa by phone. She states that work is being done in her home right now. she will look into other location. Glenn Dunn MD, PhD.
[2020-01-25 06:34] LABS: BASOPHILS # (AUTO) 0.1 (0.0-0.1); BASOPHILS % 0.8 % (0.0-1.0); EOSINOPHILS # (AUTO) 0.3 (0.0-0.4); HEMATOCRIT 30.4 % (34.2-44.1); HEMOGLOBIN 8.6 g/dL (12.0-16.0); LYMPHOCYTES # (AUTO) 1.6 (1.0-3.2); LYMPHOCYTES % 25.1 % (18.0-39.1); MEAN CORPUSCULAR HEMOGLOBIN 23.9 pg (28-32); MEAN CORPUSCULAR HGB CONC 28.3 g/dL (31-35); MEAN CORPUSCULAR VOLUME 84.4 fL (81-99); MONOCYTES # (AUTO) 0.9 (0.2-0.8); MONOCYTES % 14.6 % (4.4-11.3); NEUTROPHILS # (AUTO) 3.5 (2.1-6.9); NEUTROPHILS % 54.7 % (38.7-80.0); PLATELET COUNT 278 x10e3/uL (140-360); RED CELL DISTRIBUTION WIDTH 18.2 % (11.7-14.4)
[2020-01-25 06:40] LABS: ANION GAP 13.8 mmol/L (8-16); PHOSPHORUS 2.7 MG/DL (2.3-4.7); POTASSIUM 4.8 mmol/L (3.5-5.1)
[2020-01-25 07:31] VITALS: BP 119/54
[2020-01-25 09:00] VITALS: BP 119/54
[2020-01-25] MEDS: FAMOTIDINE 20 MG TAB PO SCH (09:26)
[2020-01-25] MEDS: MAGNESIUM OXIDE 400 MG TAB PO SCH ×2 (09:26→16:16)
[2020-01-25] MEDS: APIXABAN 5 MG TABLET PO SCH ×2 (09:26→16:16)
[2020-01-25] MEDS: BALSAM PERU/CASTOR OIL 60 GM OINT...G. TP SCH (09:26)
[2020-01-25] MEDS: TRAMADOL HCL 50 MG TAB PO PRN (09:27)
[2020-01-25] MEDS: DIGOXIN 0.25 MG TAB PO SCH (09:31)
--- NOTE | 2020-01-25 10:32 | NUR ---
DC PLANNING: CALL TO PT'S DTR; MAT SMITH @ [phone]. INFORMED CASE W [employer] REMAINS OPEN AND REP WOULD NOT SPEAK W [place] FROM [facility]. DTR STATES SHE WAS NOT ABLE TO FIND PAPERWORK FOR THE CASE, DUE TO THE MOM'S HOUSE BEING REPAIRED AND PAPERWORK HAS BEEN BOXED UP. STATES THE MOTHER'S CEILING HAD FALLEN IN AND WAS CURRENTLY UNDER REPAIR. DISCUSSED PT STAYING W A FAMILY MEMBER. STATES SHE WOULD HAVE TO SPEAK W HER SISTER TO DECIDE WHO WOULD TAKE HER. STATES SHE WOULD ALSO HAVE TO GET HER LYFT CHAIR FROM HER HOME. DTR INQUIRED ABOUT THE PT TAKING LASIX. INFORMED NO LASIX BEING TAKEN CURRENTLY. DISCUSSED HER MOTHER'S MOBILITY BEING AT HER BASELINE. CONFIRMED THE PT HAS A WALKER. DTR EXPRESSED CONCERN ABOUT TRANSPORTATION. INFORMED HER DUE TO HER BEING BED BOUND SHE COULD BE TRANSPORTED BY AMBULANCE HOME. MAT WILL CALL CM BACK W LOCATION FOR THE PT AND CM WILL HAVE HH RESUMED AND PLAN TO DC PT TODAY.
[2020-01-25 11:27] VITALS: BP 124/68
--- NOTE | 2020-01-25 12:57 | NUR ---
DTR CALLED BACK MAT SARAH. STATES SHE WILL TAKE HER TO HER HOME @: [address] [place] [address] STATES SHE WILL NEED A FEW HOURS TO HAVE HER LYFT CHAIR TRANSPORTED TO HER HOME AND WILL BRING HER DME; [facility] [place]. SHE ASKED THAT THE PT BE BATHED BEFORE SO SHE WILL HAVE TIME TO FIGURE OUT HOW SHE WILL BATHE HER. STATES SHE WAS PLEASED W [facility] HER MOTHER'S HH PROVIDER. CHOICE LETTER WAS SIGNED FOR SN/PT/ORACLE ANALYST. DR. ABARCA WAS NOTIFIED. AGREED TO TRANSPORT HOME VIA AMBULANCE. DISCUSSED W [place], [facility]. SHE WILL CALL FOR DC ORDER ONCE EVERYTHING IS ARRANGED.
--- NOTE | 2020-01-25 13:19 | Progress Note ---
DATE: 01/25/2020 Renal Progress Note SUBJECTIVE: Followed for chronic kidney disease, stage 3. Also anasarca and fluid overload. Anasarca is significantly improved after aggressive diuresis with Lasix drip. The patient is now off Lasix drip since developing contraction. Potassium is normal today at 4.8. No nausea. No vomiting. No shortness of breath. Actually on room air now, 95% O2 saturations. OBJECTIVE: LUNGS: No rales at the bases bilaterally. CARDIOVASCULAR: S1 and S2. No rub. ABDOMEN: Soft. Positive bowel sounds. EXTREMITIES: 2+ edema. No clubbing or cyanosis. LABORATORY DATA: Potassium 4.8, BUN is 23, and creatinine 1. H and H are 8.6 and 30.4. IMPRESSION AND PLAN: 1. Chronic kidney disease, stage 3. Stable kidney function. We will monitor closely. 2. Hypertension. Blood pressure is controlled. The patient continues to stay on low dose of midodrine. We will continue to monitor. 3. Anasarca/fluid overload. Continue to monitor off Lasix. Can resume oral furosemide in the next 24 to 48 hours. MD VERONICA Skinner/MODL /[id number]
[2020-01-25 15:14] VITALS: BP 103/56
[2020-01-25] MEDS ORDERED: FUROSEMIDE40 MG PO (16:04)
--- NOTE | 2020-01-25 17:50 | NUR ---
Pt discharged home at this time with home health. Dr. Dunn called in medication for patient at her pharmacy. Pt left by ambulance. Daughter notified of patient discharge. 0 s/s of acute distress noted at time of discharge.
--- NOTE | 2020-01-25 21:27 | NUR ---
SPOKE TO [place] AT [facility] TO ARRANGE FOR BED AND COMMODE [employer]. CONFIRMATION NUMBER IS [id number]. [employer] IS ARRANGED FOR IN THE MORNING ON 01/26/2020.
== END 2020-01-25 18:43 | disposition home health service (06) | DRG 291 ==
LOC: ER 16:19 → ERHOLD 19:47 → MED/SURG 22:14 → MED/SURG3 01-17 15:47
PROVIDERS: ADMIT Internal Medicine; ATTEND Internal Medicine
PROC: 02HV33Z Insertion of Infusion Device into Superior Vena Cava, Percutaneous Approach (ICD-10-PCS; principal; 2020-01-13)
PROC: B548ZZA Ultrasonography of Superior Vena Cava, Guidance (ICD-10-PCS; 2020-01-13)
DX: I13.0 Hypertensive heart and chronic kidney disease with heart failure and stage 1 through stage 4 chronic kidney disease, or unspecified chronic kidney disease (principal); I50.33 Acute on chronic diastolic (congestive) heart failure; Z68.43 Body mass index [BMI] 50.0-59.9, adult; I48.20 Chronic atrial fibrillation, unspecified; E87.2 Acidosis; N39.0 Urinary tract infection, site not specified; N17.9 Acute kidney failure, unspecified; N18.3 Chronic kidney disease, stage 3 (moderate); Z90.49 Acquired absence of other specified parts of digestive tract; Z98.84 Bariatric surgery status; Z96.642 Presence of left artificial hip joint; E66.01 Morbid (severe) obesity due to excess calories; R73.03 Prediabetes; E87.5 Hyperkalemia; I95.9 Hypotension, unspecified; B96.1 Klebsiella pneumoniae [K. pneumoniae] as the cause of diseases classified elsewhere; D63.1 Anemia in chronic kidney disease; E83.42 Hypomagnesemia; E87.6 Hypokalemia; Z11.59 Encounter for screening for other viral diseases
CPT/HCPCS: 36415; 36569; 51700; 71045; 76770; 80048; 80053; 80061; 80162; 81001; 82550; 82553; 82570; 83036; 83735; 83880; 84100; 84156; 84300; 84484; 85025; 87086; 87186; 93005; 93306; 93971; 96361; 96366; 97139; 99251; 99284; J0696; J1160; J1940; J3475; J7050; U0002

== ENCOUNTER 2025-02-02 19:58 | Inpatient (IN) | payer MEDICARE ==
[~2025-02-02] VITALS: Ht 160 cm; Wt 77.7 kg
[~2025-02-02 19:58] MED LIST changes: +FUROSEMIDE40 MG PO; +LASIX20 MG PO; +LOPRESSOR25 MG PO
[2025-02-02 20:54] VITALS: TEMP 98
[2025-02-02 21:21] LABS: BASOPHILS % 1.0 % (0.0-1.0); EOSINOPHILS % 2.1 % (0.0-6.0); LYMPHOCYTES % 24.9 % (18.0-39.1); MONOCYTES % 8.3 % (4.4-11.3); NEUTROPHILS % 63.4 % (38.7-80.0); RED CELL DISTRIBUTION WIDTH 14.4 % (11.7-14.4)
[2025-02-02 21:26] LABS: INR 1.3
[2025-02-02 21:35] LABS: EST GLOMERULAR FILTRATION RATE 62.0 ML/MIN (>=60)
[2025-02-02] MEDS ORDERED: IOPAMIDOL 370 MG/ML 100 ML INFUS..BTL INJ ONE (22:01)
[2025-02-02] MEDS ORDERED: METOPROLOL TARTRATE INJ 1 MG/ML VIAL ONE (22:06)
[2025-02-02] MEDS: METOPROLOL TARTRATE INJ 1 MG/ML VIAL IV ONE (22:10)
[2025-02-02 23:00] VITALS: PULSE 87; RESP 22
[2025-02-03] VITALS (16 sets, daily range): BP systolic 97–132; BP diastolic 59–96; PULSE 79–125; RESP 11–24; TEMP 97.9–98.2; O2SAT 90–100
[2025-02-03] MEDS ORDERED: ONDANSETRON HCL INJ 2MG/ML 2ML 2 MG/ML VIAL IV PRN
[2025-02-03] MEDS ORDERED: MELATONIN 5 MG TABLET PO PRN (01:15)
[2025-02-03] MEDS ORDERED: DEXTROSE 50% SYRINGE 50 ML IV PRN (01:15)
[2025-02-03] MEDS ORDERED: POTASSIUM CHLORIDE 20 MEQ TAB CR PO PRN (01:15)
[2025-02-03] MEDS ORDERED: DIPHENHYDRAMINE HCL 25 MG CAP PO PRN (01:15)
[2025-02-03] MEDS ORDERED: ACETAMINOPHEN 325 MG TAB PO PRN (01:15)
[2025-02-03] MEDS ORDERED: LIDOCAINE 4% PATCH TP PRN (01:15)
[2025-02-03] MEDS ORDERED: ALBUTEROL/IPRATROPIUM 3 ML NEB NEB PRN (01:15)
[2025-02-03] MEDS ORDERED: SIMETHICONE 80 MG CHEW PO PRN (01:15)
[2025-02-03] MEDS ORDERED: HYDRALAZINE HCL 20 MG/ML VIAL IV PRN (01:15)
[2025-02-03] MEDS ORDERED: BENZONATATE 100 MG CAP PO PRN (01:15)
[2025-02-03] MEDS ORDERED: DOCUSATE SODIUM 100 MG CAP PO PRN (01:15)
[2025-02-03] MEDS: HEPARIN SOD (PORCINE) 5,000 UNIT/ML VIAL IV ONE (01:28)
[2025-02-03] MEDS: HEPARIN SOD/DEXTROSE 5% 25000 UNIT/250 ML BAG IV SCH (01:29)
[2025-02-03] MEDS: PANTOPRAZOLE SOD 40 MG TABEC PO SCH (07:30)
[2025-02-03 08:16] LABS: BASOPHILS % 1.2 % (0.0-1.0); EOSINOPHILS % 4.2 % (0.0-6.0); LYMPHOCYTES % 32.6 % (18.0-39.1); MONOCYTES % 12.8 % (4.4-11.3); NEUTROPHILS % 48.9 % (38.7-80.0); RED CELL DISTRIBUTION WIDTH 14.4 % (11.7-14.4)
[2025-02-03 08:42] LABS: PHOSPHORUS 3.5 MG/DL (2.3-4.7)
[2025-02-03 09:05] LABS: CHOL/HDL RATIO 2.8 (3.0-3.6); EST GLOMERULAR FILTRATION RATE 64.0 ML/MIN (>=60); LDL CHOLESTEROL 66.0 MG/DL (60-130)
[2025-02-03] MEDS: HEPARIN 25,000 UNIT/D5W 250ML 250 ML IV SCH (09:30)
[2025-02-03] MEDS: METOPROLOL TARTRATE 25 MG TAB PO SCH (10:15)
[2025-02-03] MEDS: FUROSEMIDE INJ 10 MG/ML 2 ML VIAL IV SCH (10:15)
[2025-02-03 15:24] LABS: BODY FLUID APPEARANCE CLEAR; BODY FLUID COLOR YELLOW; BODY FLUID TYPE PLEURAL
[2025-02-03 15:25] LABS: WBC,BODY FLUID 169 cells/uL
[2025-02-03 16:53] LABS: LYMPHOCYTES,BODY FLUID 9 %; MONO/MACROPHG,BODY FLUID 13 %; NEUTROPHILS,BODY FLUID 5 %; OTHER CELLS,BODY FLUID 73 %; TOTAL CELLS COUNTED (DIFF) 100
[2025-02-04] VITALS (20 sets, daily range): BP systolic 91–132; BP diastolic 56–101; PULSE 79–120; RESP 16–23; TEMP 97.7–101; O2SAT 90–100
[2025-02-04] MEDS: FUROSEMIDE INJ 10 MG/ML 2 ML VIAL IV SCH (17:25)
[2025-02-04] MEDS: METOLAZONE 5 MG TAB PO ONE (17:25)
[2025-02-04 21:27] LABS: LEUKOCYTE ESTERASE ,URINE TRACE (NEGATIVE)
[2025-02-04 21:28] LABS: PROTEIN,URINE DIPSTICK NEGATIVE (NEGATIVE); URINE UROBILINOGEN 1 mg/dL (0.2 - 1)
[2025-02-04 21:30] LABS: EPITHELIAL CELLS,URINE RARE /LPF
[2025-02-05] VITALS (15 sets, daily range): BP systolic 88–119; BP diastolic 53–86; PULSE 69–100; RESP 14–21; TEMP 97.8–99.1; O2SAT 94–100
[2025-02-05 05:33] LABS: BASOPHILS % 0.7 % (0.0-1.0); EOSINOPHILS % 2.3 % (0.0-6.0); LYMPHOCYTES % 31.4 % (18.0-39.1); MONOCYTES % 16.9 % (4.4-11.3); NEUTROPHILS % 48.5 % (38.7-80.0); RED CELL DISTRIBUTION WIDTH 14.1 % (11.7-14.4)
[2025-02-05 05:48] LABS: EST GLOMERULAR FILTRATION RATE 52.0 ML/MIN (>=60)
[2025-02-05] MEDS: APIXABAN 5 MG TABLET PO SCH (20:38)
[2025-02-06] VITALS (10 sets, daily range): BP systolic 92–117; BP diastolic 51–94; PULSE 63–95; RESP 16–21; TEMP 97.6–98.4; O2SAT 92–100
[2025-02-06] MEDS: FUROSEMIDE INJ 10 MG/ML 2 ML VIAL IV SCH (08:55)
[2025-02-06 11:29] LABS: BASOPHILS % 0.5 % (0.0-1.0); EOSINOPHILS % 2.7 % (0.0-6.0); LYMPHOCYTES % 20.5 % (18.0-39.1); MONOCYTES % 14.7 % (4.4-11.3); NEUTROPHILS % 61.4 % (38.7-80.0); RED CELL DISTRIBUTION WIDTH 14.3 % (11.7-14.4)
[2025-02-06 11:38] LABS: EST GLOMERULAR FILTRATION RATE 52.0 ML/MIN (>=60)
[2025-02-07] VITALS (10 sets, daily range): BP systolic 91–108; BP diastolic 52–65; PULSE 62–103; RESP 16–18; TEMP 97.5–98.2; O2SAT 96–100
[2025-02-08] VITALS (13 sets, daily range): BP systolic 93–112; BP diastolic 49–74; PULSE 65–100; RESP 16–19; TEMP 97–98; O2SAT 92–100
[2025-02-08 06:24] LABS: BASOPHILS % 1.2 % (0.0-1.0); EOSINOPHILS % 3.8 % (0.0-6.0); LYMPHOCYTES % 33.6 % (18.0-39.1); MONOCYTES % 14.2 % (4.4-11.3); NEUTROPHILS % 46.9 % (38.7-80.0); RED CELL DISTRIBUTION WIDTH 13.9 % (11.7-14.4)
[2025-02-08 07:08] LABS: EST GLOMERULAR FILTRATION RATE 48.0 ML/MIN (>=60)
[2025-02-08] MEDS: ARTIFICIAL TEARS (OPTH) 15 ML BTL OU SCH (15:12)
[2025-02-09] VITALS (14 sets, daily range): BP systolic 96–137; BP diastolic 7–68; PULSE 76–106; RESP 18–20; TEMP 97.6–98.4; O2SAT 93–97
[2025-02-09] MEDS: METOPROLOL SUCCINATE 25 MG TAB XL PO SCH (08:54)
[2025-02-09] MEDS ORDERED: MAGNESIUM HYDROXIDE 30 ML UDC PO PRN (10:15)
[2025-02-09] MEDS: MAGNESIUM HYDROXIDE 30 ML UDC PO ONE (11:20)
[2025-02-10] VITALS (10 sets, daily range): BP systolic 94–125; BP diastolic 41–94; PULSE 75–109; RESP 16–20; TEMP 97–99; O2SAT 6–98
[2025-02-10 06:55] LABS: BASOPHILS % 1.9 % (0.0-1.0); EOSINOPHILS % 4.2 % (0.0-6.0); LYMPHOCYTES % 34.4 % (18.0-39.1); MONOCYTES % 15.0 % (4.4-11.3); NEUTROPHILS % 44.2 % (38.7-80.0); RED CELL DISTRIBUTION WIDTH 14.0 % (11.7-14.4)
[2025-02-10 07:20] LABS: EST GLOMERULAR FILTRATION RATE 65.0 ML/MIN (>=60)
[2025-02-11 03:59] VITALS: BP 97/62; PULSE 72; RESP 18; TEMP 97.7; O2SAT 93
[2025-02-11 07:08] VITALS: PULSE 80; RESP 23; O2SAT 95
[2025-02-11 08:00] VITALS: BP 94/61; PULSE 75; RESP 18; TEMP 98.6; O2SAT 94
[2025-02-11 12:00] VITALS: BP 93/64; PULSE 104; RESP 18; TEMP 97.2; O2SAT 99
[2025-02-11] MEDS ORDERED: TOPROL XL25 MG PO (15:39)
[2025-02-11 16:00] VITALS: BP 107/46; PULSE 89; RESP 17; TEMP 97.8; O2SAT 97
[2025-02-11] MEDS ORDERED: MIDODRINE 2.5 MG TAB PO SCH (16:00)
[2025-02-11] MEDS: FOSFOMYCIN TROMETHAMINE 3 GM PACKET PO ONE (16:25)
[2025-02-11] MEDS: LACTULOSE SYRUP 20 GM/30 ML UDC PO ONE (16:26)
[2025-02-11 17:31] VITALS: BP 93/64; PULSE 104; RESP 18; TEMP 97.2; O2SAT 99
== END 2025-02-11 19:30 | disposition home health service (06) | DRG 291 ==
LOC: ER 20:46 → ERHOLD 23:51 → ICU 23:55 → MED/SURG3 02-05 18:38
PROVIDERS: ADMIT Internal Medicine; ATTEND Internal Medicine
PROC: 0W993ZZ Drainage of Right Pleural Cavity, Percutaneous Approach (ICD-10-PCS; principal; 2025-02-03)
DX: I11.0 Hypertensive heart disease with heart failure (principal); I50.33 Acute on chronic diastolic (congestive) heart failure; I48.20 Chronic atrial fibrillation, unspecified; J90 Pleural effusion, not elsewhere classified; N39.0 Urinary tract infection, site not specified; I50.812 Chronic right heart failure; B96.5 Pseudomonas (aeruginosa) (mallei) (pseudomallei) as the cause of diseases classified elsewhere; F03.90 Unspecified dementia, unspecified severity, without behavioral disturbance, psychotic disturbance, mood disturbance, and anxiety; R60.9 Edema, unspecified; I89.0 Lymphedema, not elsewhere classified; R53.81 Other malaise; N63.0 Unspecified lump in unspecified breast; M81.0 Age-related osteoporosis without current pathological fracture; M19.90 Unspecified osteoarthritis, unspecified site; H10.409 Unspecified chronic conjunctivitis, unspecified eye; Z79.01 Long term (current) use of anticoagulants; Z98.84 Bariatric surgery status; Z90.49 Acquired absence of other specified parts of digestive tract; Z90.710 Acquired absence of both cervix and uterus; Z91.148 Patient's other noncompliance with medication regimen for other reason
CPT/HCPCS: 32555; 36415; 71045; 71260; 74018; 74470; 80048; 80053; 80061; 81001; 82550; 83036; 83735; 83880; 84100; 84443; 84484; 85025; 85610; 85730; 87070; 87086; 87186; 87205; 89051; 93005; 93971; 94799; 99252; 99284; C1729; J0692; J0696; J1644; J1938; J2470; Q9967